=== PATIENT | female | born 1955 | race Caucasian/White ===

== ENCOUNTER → 2017-01-26 | Outpatient (CLI) | payer MEDICAID ==
[2016-12-23 11:33] VITALS: BP 164/72
--- NOTE | 2017-01-26 15:48 | MRI ---
MRI OF THE ABDOMEN WITHOUT IV CONTRAST MRA OF THE ABDOMEN WITHOUT AND WITH CONTRAST Clinical indication: Essential hypertension Procedure: Multiplanar multi sequence MRI of the abdomen were obtained without the administration of intravenous contrast according to standard departmental protocol. Noncontrast imaging of the arteri al structures of the abdomen was performed. 3D reconstructions were performed and evaluated. Comparisons: Renal ultrasound 12/23/2016 Findings: MRI: No significant iron or fat deposition in the liver or spleen. No significant ascites. Liver and spleen are normal in appearance. No focal lesions. Gallbladder not well seen. No ductal di latation. Atrophic pancreas. No pancreatic masses. Adrenal glands are normal. Kidneys demonstrate no rmal cortical medullary differentiation. No hydronephrosis. Visualized bowel is unremarkable. No heavenly picious lymph nodes. MRA: The aorta is normal in course and caliber without aneurysm or stenosis. The renal arteries bila terally show no gross, significant stenosis. The celiac artery is normal. The SMA is normal. Impression: 1. No gross renal artery stenosis. Please note the given the poor spatial resolution of MRI, more ho btle stenosis cannot be completely excluded. Reported By:
== END ==
LOC: RAD 08:19
PROVIDERS: ATTEND Nurse Practitioner Family
DX: I10 Essential (primary) hypertension (principal)
CPT/HCPCS: 74185

== ENCOUNTER → 2017-04-26 | Outpatient (CLI) | payer MEDICAID ==
[2016-12-23 11:33] VITALS: BP 164/72
--- NOTE | 2017-04-26 10:42 | RAD ---
HISTORY: COPD, right chest wall pain. Study: PA and lateral chest. Comparison: Chest x-ray dated December 22, 2016. Findings: The trachea is midline. The cardiac silhouette is unchanged. Right chest Port-A-Cath appears unchan ged. The lungs are clear without focal infiltrate or effusion. The bony thorax appears unchanged. Surgical clips are seen overlying the right axilla and right upper quadrant. IMPRESSION: 1. No acute cardiopulmonary disease. Reported By:
== END ==
LOC: LAB 10:13
PROVIDERS: ATTEND Nurse Practitioner Family
DX: J44.9 Chronic obstructive pulmonary disease, unspecified (principal); R07.89 Other chest pain; R25.2 Cramp and spasm
CPT/HCPCS: 36415; 71020; 83735

== ENCOUNTER → 2017-06-07 | Outpatient (CLI) | payer MEDICAID ==
[2016-12-23 11:33] VITALS: BP 164/72
[2017-06-07 13:11] LABS: BASOPHILS # (AUTO) 0.1 X10^3/uL (0.0-0.1); EOSINOPHILS # (AUTO) 0.1 x10^3/uL (0.0-0.2); EOSINOPHILS % (AUTO) 1.5 % (0.9-2.9); HEMATOCRIT 37.6 % (36.0-47.0); HEMOGLOBIN 12.8 g/dL (12.0-16.0); LYMPHOCYTES # (AUTO) 1.4 X10^3/uL (1.3-2.9); MEAN CORPUSCULAR HEMOGLOBIN 28.8 pg (27.0-34.0); MEAN CORPUSCULAR VOLUME 84.8 fL (80.0-100.0); MEAN PLATELET VOLUME 8.1 fL (7.4-11.0); MONOCYTES # (AUTO) 0.3 x10^3/uL (0.3-0.8); MONOCYTES % (AUTO) 3.7 % (0.0-13.0); NEUTROPHILS # (AUTO) 5.8 x10^3/uL (2.2-4.8); NEUTROPHILS % (AUTO) 75.8 % (42.0-75.0); PLATELET COUNT 348 X10^3/uL (150.0-450.0); RED BLOOD COUNT 4.43 X10^6/uL (3.5-5.4); WHITE BLOOD COUNT 7.7 X10^3/uL (3.6-10.0)
[2017-06-07 13:21] LABS: ALANINE AMINOTRANSFERASE 29 Units/L (12-78); ALBUMIN 3.8 g/dL (3.4-5.0); ALKALINE PHOSPHATASE 143 Units/L (46-116); ASPARTATE AMINO TRANSFERASE 20 Units/L (15-37); BLOOD UREA NITROGEN 16 mg/dL (7-18); CALCIUM 8.9 mg/dL (8.5-10.1); CARBON DIOXIDE 33.5 mmol/L (21-32); CHLORIDE 103 mmol/L (98-107); COR NA(FOR HYPERGLY) 140 mmol/L (136-145); CREATININE 0.78 mg/dL (0.55-1.02); GLUCOSE 117 mg/dL (65-99); SODIUM 140 mmol/L (136-145); TOTAL PROTEIN 7.9 g/dL (6.4-8.2); eGFR BLACK RACES > 60 (>60); eGFR NON BLACK RACES > 60 (>60)
== END ==
LOC: LAB 12:36
PROVIDERS: ATTEND Internal Medicine Hematology & Oncology
DX: C50.511 Malignant neoplasm of lower-outer quadrant of right female breast (principal); E55.9 Vitamin D deficiency, unspecified
CPT/HCPCS: 36415; 80053; 82306; 85025

== ENCOUNTER → 2017-10-16 | Outpatient (CLI) | payer MEDICAID ==
[2016-12-23 11:33] VITALS: BP 164/72
--- NOTE | 2017-10-16 10:47 | RAD ---
Examination: Right hand, three views History: Trigger finger Findings: There is no evidence for fracture, dislocation or erosive arthropathy. The soft tissues are unremarkable. Slight narrowing of DIP joints is noted. Impression: No acute process. Mild DIP joint osteoarthritis. Reported By:
== END ==
LOC: RAD 09:41
PROVIDERS: ATTEND Nurse Practitioner Family
DX: M65.30 Trigger finger, unspecified finger (principal); M19.041 Primary osteoarthritis, right hand
CPT/HCPCS: 73130

== ENCOUNTER 2017-11-10 16:10 | Observation (INO) | payer MEDICAID ==
[2017-11-10 17:36] VITALS: BMI 36.6
[2017-11-10] MEDS ORDERED: APRESOLINE INJ 20 MG VIAL IVP PRN (17:46)
[2017-11-10] MEDS ORDERED: NORCO 10/325 TAB PO PRN (17:49)
--- NOTE | 2017-11-10 17:53 | DR.H&P ---
H&P - History & Physical for Day of: H&P Date: 11/10/17 - Chief Complaint Chief Complaint: marti, body aches, sob, wheezing - Allergies Allergies/Adverse Reactions: Allergies Allergy/AdvReac Type Severity Reaction Status Date / Time MS Iodine [Iodine] Allergy Severe Verified 10/29/16 08:56 MS Metaxalone [From Skelaxin] Allergy Severe Verified 10/29/16 08:56 MS Brompheniramine Allergy Intermediate Verified 10/29/16 08:56 [From Dimetapp] MS Clindamycin [Clindamycin] Allergy Intermediate Verified 10/29/16 08:56 MS Phenylpropanolamine Allergy Intermediate Verified 10/29/16 08:56 [From Dimetapp] MS Ciprofloxacin [From Cipro] Allergy Unknown Verified 10/29/16 08:56 hydromorphone Allergy Verified 11/10/17 17:17 MS Fish Allergy Allergy Verified 10/29/16 08:56 [Fish Allergy] MS Meperidine Allergy Verified 10/29/16 08:56 [From Demerol HCl] MS Morphine [Morphine] Allergy Verified 10/29/16 08:56 MS Penicillin G Allergy Verified 10/29/16 08:56 [Penicillin G] MS Ranitidine [From Zantac] Allergy Verified 10/29/16 08:56 MS Shrimp Flavor Allergy Verified 10/29/16 08:56 [Shrimp Flavor] oxcaprozin Allergy Severe Uncoded 10/29/16 08:56 - History of Present Illness History of Present Illness: 62 WF DIRECT ADMIT FROM DR IBARRA OFFICES WITH HYPERTENSIVE URGENCY AND CO FLU LIKE SYMPTOMS FOR 3 DAYS. PT STATES SHE HAS INCREASED SOB AND WHEEZING. PT BP IN OFFICE 210-112, POST CATAPRES 0.1 PO. PT ALSO ON NORVASC AND LOSARTAN AT HOME. PT MARTI HX OF COPD AND ASTHMA. PLAN TO ADMIT FOR MANAGEMENT OF HTN URGENCY AND EVALUATION OF SOB. - Past Medical History Past Medical History: Angina, Asthma, COPD, Coronary Artery Disease, Dyslipidemia, Hypertension Additional Medical History: BREAST CANCER - Past Surgical History Surgical History: Cholecystectomy, Hysterectomy, Mastectomy - Family History Family Medical History: Diabetes Mellitus, Heart Failure, Hypertension - Social History Does patient currently use any type of tobacco product: No Have you used tobacco products in the last 12 months: No Type of Tobacco Use: None Does any household member use tobacco: Yes Alcohol Use: None Drug Use: None - Review of Systems Constitutional: Fever, Chills, Sweats, Malaise Eyes: No Symptoms Reported ENT: Nose Congestion, Throat Pain Respiratory: Shortness of Breath, SOB with Excertion, Wheezing Cardiovascular: No Symptoms Reported Gastrointestinal: No Symptoms Reported Genitourinary: No Symptoms Reported Musculoskeletal: Shoulder Pain, Back Pain Skin: No Symptoms Reported Neurological: No Symptoms Reported - Physical Exam Vital Signs: Temperature 97.6 F Pulse Rate [Right Brachial] 87 Respiratory Rate 20 Blood Pressure [Left Calf] 155/88 Blood Pressure [Left Arm] 185/82 Blood Pressure 164/72 O2 Sat by Pulse Oximetry 97 Oriented: Normal Eyes: Normal Ear: Normal Nose: Normal Throat: Normal Respiratory: Wheezes Throughout Cardiovascular: Tachycardia. negative: Edema : Normal Auscultation: Bowel Sounds: Normal Palpation: Normal Tenderness: Normal Skin: Normal Musculoskeletal: Right, Shoulder, Back:Lumbar Psychiatric: Anxiety Affect: Anxious Speech Pattern: Clear, Appropriate - Assessment/Plan (1) Hypertensive urgency Status: Acute Plan: ADMIT, ADMISSION LABS. RESP CONSULT, O2, TELEMETRY, EKG ON ADMISSION, CE' S. CXR, BP CONTROL, HYDRALAZINE AND PO CATAPRES, RESUME HOME MEDS. (2) SOB (shortness of breath) Status: Acute (3) Fever Status: Acute Plan: FLU SWAB (4) COPD (chronic obstructive pulmonary disease) with acute bronchitis Status: Chronic (5) GERD (gastroesophageal reflux disease) Status: Chronic (6) Status post right mastectomy Status: Chronic
[2017-11-10] MEDS: CATAPRES TAB 0.1 MG PO SCH ×2 (17:56→22:24)
[2017-11-10 18:04] LABS: ABG BASE EXCESS 5.9 mmol/L (-2.0-2.0); ABG HCO3 29.7 mmol/L (22-26)
[2017-11-10 18:05] LABS: ABG ALLEN TEST POS
[2017-11-10 18:11] LABS: BASOPHILS # (AUTO) 0.1 X10^3/uL (0.0-0.1); BASOPHILS % (AUTO) 1.2 % (0.2-1.0); EOSINOPHILS # (AUTO) 0.2 x10^3/uL (0.0-0.2); HEMATOCRIT 36.6 % (36.0-47.0); HEMOGLOBIN 12.7 g/dL (12.0-16.0); LYMPHOCYTES # (AUTO) 2.1 X10^3/uL (1.3-2.9); LYMPHOCYTES % (AUTO) 26.7 % (21.0-51.0); MEAN CORPUSCULAR HEMOGLOBIN 30.7 pg (27.0-34.0); MEAN CORPUSCULAR HGB CONC 34.8 g/dL (33.0-35.0); MEAN CORPUSCULAR VOLUME 88.1 fL (80.0-100.0); MEAN PLATELET VOLUME 8.5 fL (7.4-11.0); MONOCYTES # (AUTO) 0.5 x10^3/uL (0.3-0.8); MONOCYTES % (AUTO) 6.5 % (0.0-13.0); NEUTROPHILS % (AUTO) 63.6 % (42.0-75.0); PLATELET COUNT 309 X10^3/uL (150.0-450.0); RED BLOOD COUNT 4.15 X10^6/uL (3.5-5.4); RED CELL DISTRIBUTION WIDTH 13.7 % (11.6-16.5); WHITE BLOOD COUNT 7.8 X10^3/uL (3.6-10.0)
--- NOTE | 2017-11-10 18:20 | RAD ---
HISTORY: Shortness of breath and elevated blood pressure. Study: Portable chest. Comparison: Chest x-ray dated April 26, 2017. Findings: The trachea is midline. The cardiac silhouette is unchanged given technique. Interval removal of rig ht chest Port-A-Cath. Surgical clips are again seen overlying the right axilla and right upper quadra nt. No obvious focal consolidation, pleural effusion, or pneumothorax. The bony thorax is unremarka ble. IMPRESSION: No acute cardiopulmonary disease. Reported By:
[2017-11-10] MEDS ORDERED: NS 500 ML IV 500 ML IV ONE (18:23)
[2017-11-10 18:27] LABS: BLOOD UREA NITROGEN 19 mg/dL (7-18); CALCIUM 8.9 mg/dL (8.5-10.1); CARBON DIOXIDE 27.5 mmol/L (21-32); CHLORIDE 104 mmol/L (98-107); CREATININE 0.64 mg/dL (0.55-1.02); SODIUM 141 mmol/L (136-145); TROPONIN I < 0.02 ng/mL (0-1.5); eGFR BLACK RACES > 60 (>60); eGFR NON BLACK RACES > 60 (>60)
[2017-11-10] MEDS: ZITHROMAX INJ 500 MG VIAL 500 MG in NS 250 ML IV 250 ML IV SCH (18:32)
[2017-11-10 18:33] LABS: ALANINE AMINOTRANSFERASE 37 Units/L (12-78); ALBUMIN 3.7 g/dL (3.4-5.0); ALKALINE PHOSPHATASE 108 Units/L (46-116); ASPARTATE AMINO TRANSFERASE 20 Units/L (15-37); CKMB % 2.6 % (<4); CREATINE KINASE 39 Units/L (26-192); CREATINE KINASE MB < 1.0 ng/mL (0-4.0); TOTAL PROTEIN 7.3 g/dL (6.4-8.2)
[2017-11-11] MEDS: CATAPRES TAB 0.1 MG PO SCH ×4 (02:29→18:31)
[2017-11-11 04:48] LABS: ALANINE AMINOTRANSFERASE 35 Units/L (12-78); ALKALINE PHOSPHATASE 97 Units/L (46-116); ASPARTATE AMINO TRANSFERASE 29 Units/L (15-37); BLOOD UREA NITROGEN 21 mg/dL (7-18); CALCIUM 8.5 mg/dL (8.5-10.1); CHLORIDE 105 mmol/L (98-107); COR CA(FOR HYPOALB) 9.3 mg/dL (8.5-10.1); CREATININE 0.66 mg/dL (0.55-1.02); SODIUM 141 mmol/L (136-145); TOTAL PROTEIN 6.2 g/dL (6.4-8.2); eGFR BLACK RACES > 60 (>60); eGFR NON BLACK RACES > 60 (>60)
[2017-11-11 04:50] LABS: BASOPHILS # (AUTO) 0.1 X10^3/uL (0.0-0.1); EOSINOPHILS # (AUTO) 0.1 x10^3/uL (0.0-0.2); EOSINOPHILS % (AUTO) 2.6 % (0.9-2.9); HEMATOCRIT 34.3 % (36.0-47.0); HEMOGLOBIN 11.8 g/dL (12.0-16.0); LYMPHOCYTES # (AUTO) 1.8 X10^3/uL (1.3-2.9); LYMPHOCYTES % (AUTO) 32.5 % (21.0-51.0); MEAN CORPUSCULAR HEMOGLOBIN 30.6 pg (27.0-34.0); MEAN CORPUSCULAR HGB CONC 34.4 g/dL (33.0-35.0); MEAN CORPUSCULAR VOLUME 89.1 fL (80.0-100.0); MONOCYTES # (AUTO) 0.4 x10^3/uL (0.3-0.8); MONOCYTES % (AUTO) 7.6 % (0.0-13.0); NEUTROPHILS % (AUTO) 56.3 % (42.0-75.0); PLATELET COUNT 260 X10^3/uL (150.0-450.0); RED BLOOD COUNT 3.85 X10^6/uL (3.5-5.4); RED CELL DISTRIBUTION WIDTH 13.7 % (11.6-16.5); WHITE BLOOD COUNT 5.4 X10^3/uL (3.6-10.0)
[2017-11-11] MEDS ORDERED: COZAAR PO SCH (09:00)
[2017-11-11] MEDS ORDERED: NORVASC TAB 5 MG PO SCH (09:00)
[2017-11-11] MEDS: ZITHROMAX INJ 500 MG VIAL 500 MG in NS 250 ML IV 250 ML IV SCH (09:26)
[2017-11-11 13:42] VITALS: BP 147/66
== END 2017-11-11 19:50 | disposition home or self-care (01) ==
LOC: UNDOADMOB 16:10 → MED/SURG 16:10
PROVIDERS: ADMIT Internal Medicine; ATTEND Internal Medicine
DX: I16.0 Hypertensive urgency (principal); R06.02 Shortness of breath; R51 Headache; J44.9 Chronic obstructive pulmonary disease, unspecified; J20.8 Acute bronchitis due to other specified organisms; K21.9 Gastro-esophageal reflux disease without esophagitis; Z90.11 Acquired absence of right breast and nipple; R94.4 Abnormal results of kidney function studies
CPT/HCPCS: 36415; 36600; 71010; 80053; 82550; 82553; 82803; 84484; 85025; 87502; 93005; 93010; A4222; G0378; J0456

== ENCOUNTER → 2018-04-01 | Day surgery (SDC) | payer MEDICAID ==
[~2018-04-01] MED LIST: ANCEF 1 GM IV PREMIX* 1 GM/50 ML BAG IV ONE; BACITRACIN VIAL ONE; COZAAR PO ONE; DIPRIVAN VIAL ONE; FENTANYL INJ 100 mcg ONE; NS 1000 ML 1,000 ML ONE; NS IRRIGATION 1000 ML 1,000 ML IR ONE; TOPROL XL PO ONE; VERSED ONE; XYLOCAINE 1 % (PLAIN) ONE; XYLOCAINE 2 % (PLAIN) ONE
--- NOTE | 2018-04-01 10:24 | RAD ---
Examination: Portable AP chest History: Postop port Comparison reference 03/12/2018 Findings: There is a new left subclavian injection port terminating in the SVC. Heart size normal wit h clear lungs and pleural spaces. Impression: Central line placement as described with no complication demonstrated. Reported By:
[2018-04-01 10:44] VITALS: BP 185/82
== END | disposition home or self-care (01) | DRG 301 ==
LOC: SURG1 07:30
PROVIDERS: ATTEND Surgery
PROC: B517ZZA Fluoroscopy of Left Subclavian Vein, Guidance (ICD-10-PCS; principal; 2018-04-01 09:15)
PROC: 05H633Z Insertion of Infusion Device into Left Subclavian Vein, Percutaneous Approach (ICD-10-PCS; principal; 2018-04-01 09:15)
PROC: 0JH63WZ Insertion of Totally Implantable Vascular Access Device into Chest Subcutaneous Tissue and Fascia, Percutaneous Approach (ICD-10-PCS; principal; 2018-04-01 09:15)
DX: I87.2 Venous insufficiency (chronic) (peripheral) (principal); Z85.3 Personal history of malignant neoplasm of breast
CPT/HCPCS: 71045; 76000; A4222; J0690; J2001; J2250; J3010; J3490

== ENCOUNTER → 2018-10-18 15:53 | Observation (INO) ==
--- NOTE | 2018-10-14 13:56 | DR.H&P ---
H&P - History & Physical for Day of: H&P Date: 10/14/18 - Chief Complaint Chief Complaint: marti, elevated blood pressure, lle pain, redness "phlebitis" - History of Present Illness History of Present Illness: 63 WF DIRECT ADMIT FROM DR REYEZ OFFICE WITH CO LLE PAIN, REDNESS, PT STATES IT "PHLEBITIS". PT STATES SHE HAD SEVERE MARTI THIS AM AND BLOOD PRESSURE HAS BEEN RUNNING MED, SHE TOOK HER HOME MEDICATION THIS AM PER REPORT. PT BP IN OFFICE 240/128 AND GIVEN CATAPRES 0.1 BRINGING DOWN TO 200/90. PT STATES SHE WAS SEEN IN ER ON 10/11 HAD US W/O DVT AND WAS CO CP AND SOB AND CARDIAC ENZYMES NORMAL AND D/C HOME. PT HAS PMH OF BREAST CANCER, ASTHMA, COPD, HTN,OA, DINESH. PT ADMITTED FOR TREATMENT OF HYPERTENSIVE URGENCY AND LLE PHLEBITIS. - Past Medical History Past Medical History: Angina, Coronary Artery Disease, Hypertension, Dyslipidemia, COPD, Asthma, Arthritis Additional Medical History: BREAST CANCER - Past Surgical History Surgical History: Cholecystectomy, Hysterectomy, Mastectomy - Family History Family Medical History: Diabetes Mellitus, Heart Failure, Hypertension - Social History Does patient currently use any type of tobacco product: No Have you used tobacco products in the last 12 months: No Type of Tobacco Use: None Does any household member use tobacco: Yes Alcohol Use: None Drug Use: None - Medications Home Medications: brompheniramine Allergy (Verified 10/11/18 22:27) ciprofloxacin Allergy (Verified 10/11/18 22:27) clindamycin Allergy (Verified 10/11/18 22:27) Fish Containing Products Allergy (Verified 10/11/18 22:27) hydromorphone Allergy (Verified 10/11/18 22:27) iodine Allergy (Verified 10/11/18 22:27) meperidine [From Demerol] Allergy (Verified 10/11/18 22:27) metaxalone Allergy (Verified 10/11/18 22:27) morphine Allergy (Verified 10/11/18 22:27) penicillin G Allergy (Verified 10/11/18 22:27) phenylpropanolamine Allergy (Verified 10/11/18 22:27) ranitidine Allergy (Verified 10/11/18 22:27) shrimp Allergy (Verified 10/11/18 22:27) oxcaprozin Allergy (Severe, Uncoded 10/11/18 22:27) CONTINUE taking the following medications hydrochlorothiazide 25 mg PO DAILY 10/14/18 [History] oxycodone-acetaminophen [Percocet] 10 - 325 mg PO Q8H 10/14/18 [History] potassium chloride 10 meq PO DAILY 10/14/18 [History] - Review of Systems Constitutional: Chills, Weakness Eyes: No Symptoms Reported ENT: No Symptoms Reported Respiratory: Shortness of Breath, SOB with Excertion Cardiovascular: No Symptoms Reported Gastrointestinal: Nausea Genitourinary: No Symptoms Reported Musculoskeletal: Back Pain, Leg Pain Skin: Rash (LLE REDNESS) Neurological: No Symptoms Reported - Physical Exam Vital Signs: Temperature 97.7 F Pulse Rate [Left Brachial] 86 Respiratory Rate 20 Blood Pressure [Left Calf] 179/86 Blood Pressure [Left Arm] 230/92 Blood Pressure 164/94 O2 Sat by Pulse Oximetry 96 Oriented: Normal Eyes: Normal Ear: Normal Nose: Normal Throat: Dry Respiratory: RML Diminished, RLL Diminished, LML Diminished, LLL Diminished Cardiovascular: Tachycardia. negative: Edema : Normal Auscultation: Bowel Sounds: Normal Palpation: Normal Tenderness: Normal Skin: Decreased Turgur, Red (MILD LLE REDNESS ), Tender Musculoskeletal: Back:Thoracic, Back:Lumbar, Tender, Instability Psychiatric: Anxiety Affect: Anxious Speech Pattern: Clear, Appropriate - Assessment/Plan (1) Hypertensive urgency Status: Acute Plan: ADMIT, CARDIAC MONITORING, EKG ON ADMISSION. ADMISSION LABS CBC CMP MAG CE. RESP CONSULT FOR HOME ASTHMA NEB TREATMENTS. CXR ON ADMISSION, VERIFY HOME MEDICATION. HYDRALAXINE IV FOR BP CONTROL, IV ATBX FOR PHLEBITIS, BLOOD CULTURES ON ADMISSION (2) Phlebitis Status: Acute (3) Hypertension Qualifiers: Hypertension type: essential hypertension Qualified Code(s): I10 - Essential (primary) hypertension Status: Acute (4) COPD (chronic obstructive pulmonary disease) Qualifiers: COPD type: chronic bronchitis Status: Chronic (5) History of DVT (deep vein thrombosis) Status: Chronic (6) Status post right mastectomy Status: Chronic (7) GERD (gastroesophageal reflux disease) Status: Chronic - Allergies Allergies/Adverse Reactions: Allergies Allergy/AdvReac Type Severity Reaction Status Date / Time brompheniramine Allergy Verified 10/11/18 22:27 ciprofloxacin Allergy Verified 10/11/18 22:27 clindamycin Allergy Verified 10/11/18 22:27 Fish Containing Products Allergy Verified 10/11/18 22:27 hydromorphone Allergy Verified 10/11/18 22:27 iodine Allergy Verified 10/11/18 22:27 meperidine [From Demerol] Allergy Verified 10/11/18 22:27 metaxalone Allergy Verified 10/11/18 22:27 morphine Allergy Verified 10/11/18 22:27 penicillin G Allergy Verified 10/11/18 22:27 phenylpropanolamine Allergy Verified 10/11/18 22:27 ranitidine Allergy Verified 10/11/18 22:27 shrimp Allergy Verified 10/11/18 22:27 oxcaprozin Allergy Severe Uncoded 10/11/18 22:27
[2018-10-14] MEDS: NS 1000 ML 1,000 ML IV SCH (14:14)
[2018-10-14] MEDS: PROTONIX INJ 40 MG VIAL IVP SCH (14:14)
[2018-10-14] MEDS: ROCEPHIN VIAL 1 GRAM IVP SCH (14:14)
[2018-10-14 14:15] LABS: BASOPHILS # (AUTO) 0.1 X10^3/uL (0.0-0.1); EOSINOPHILS % (AUTO) 0.6 % (0.9-2.9); HEMATOCRIT 38.5 % (36.0-47.0); HEMOGLOBIN 13.1 g/dL (12.0-16.0); LYMPHOCYTES # (AUTO) 1.3 X10^3/uL (1.3-2.9); MEAN CORPUSCULAR HEMOGLOBIN 30.6 pg (27.0-34.0); MEAN PLATELET VOLUME 7.6 fL (7.4-11.0); MONOCYTES # (AUTO) 0.3 x10^3/uL (0.3-0.8); MONOCYTES % (AUTO) 5.4 % (0.0-13.0); PLATELET COUNT 367 X10^3/uL (150.0-450.0); RED BLOOD COUNT 4.27 X10^6/uL (3.5-5.4); RED CELL DISTRIBUTION WIDTH 14.8 % (11.6-16.5); WHITE BLOOD COUNT 5.7 X10^3/uL (3.6-10.0)
--- NOTE | 2018-10-14 14:26 | RAD ---
Reported By: ORY: Shortness of breath Study: AP portable chest Comparison: AP chest 10/11/2018 Technique: AP portable upright chest Findings: Left subclavian port is seen entering on the left tip at the junction the left subclavian to the superior vena cava in good position. Patient has undergone prior anterior fusion surgery in the lower C-spine with retained anterior fusion plate. The heart size, configuration and airway are normal . Surgical clips are seen in the right axilla. There is no hilar or mediastinal adenopathy. The lungs are clear without infiltrates. There is no interval change from the prior chest film 10/11/2018. IMPRESSION: 1. No acute cardiopulmonary abnormalities. 2. Prior axillary C-spine surgery with an indwelling left subclavian port in place
[2018-10-14 14:28] LABS: ALANINE AMINOTRANSFERASE 58 Units/L (12-78); ALBUMIN 3.9 g/dL (3.4-5.0); ALKALINE PHOSPHATASE 122 Units/L (46-116); ASPARTATE AMINO TRANSFERASE 28 Units/L (15-37); BLOOD UREA NITROGEN 9 mg/dL (7-18); CALCIUM 8.9 mg/dL (8.5-10.1); CARBON DIOXIDE 28.2 mmol/L (21-32); CHLORIDE 104 mmol/L (98-107); CREATININE 0.61 mg/dL (0.55-1.02); MAGNESIUM 1.8 mg/dL (1.7-2.9); SODIUM 143 mmol/L (136-145); TOTAL PROTEIN 7.7 g/dL (6.4-8.2); eGFR NON BLACK RACES > 60 (>60)
[2018-10-14] MEDS: PERCOCET TAB 5/325 MG PO PRN ×2 (14:35→22:44)
[2018-10-14] MEDS: COLACE CAP 100 MG PO SCH (21:00)
[2018-10-15] MEDS: PHENERGAN INJ 25 MG IV PRN ×2 (04:30→10:25)
[2018-10-15] MEDS: PERCOCET TAB 5/325 MG PO PRN ×3 (07:00→22:44)
[2018-10-15 07:16] LABS: ALANINE AMINOTRANSFERASE 44 Units/L (12-78); ALKALINE PHOSPHATASE 96 Units/L (46-116); ASPARTATE AMINO TRANSFERASE 21 Units/L (15-37); BLOOD UREA NITROGEN 14 mg/dL (7-18); CALCIUM 8.3 mg/dL (8.5-10.1); CARBON DIOXIDE 27.8 mmol/L (21-32); CHLORIDE 107 mmol/L (98-107); COR CA(FOR HYPOALB) 9.1 mg/dL (8.5-10.1); CREATININE 0.71 mg/dL (0.55-1.02); SODIUM 143 mmol/L (136-145); TOTAL PROTEIN 6.3 g/dL (6.4-8.2); eGFR NON BLACK RACES > 60 (>60)
[2018-10-15 07:23] LABS: EOSINOPHILS # (AUTO) 0.1 x10^3/uL (0.0-0.2); EOSINOPHILS % (AUTO) 1.8 % (0.9-2.9); HEMATOCRIT 34.1 % (36.0-47.0); HEMOGLOBIN 11.4 g/dL (12.0-16.0); LYMPHOCYTES # (AUTO) 1.6 X10^3/uL (1.3-2.9); LYMPHOCYTES % (AUTO) 32.7 % (21.0-51.0); MEAN CORPUSCULAR HEMOGLOBIN 30.3 pg (27.0-34.0); MEAN CORPUSCULAR HGB CONC 33.6 g/dL (33.0-35.0); MEAN CORPUSCULAR VOLUME 90.4 fL (80.0-100.0); MONOCYTES # (AUTO) 0.4 x10^3/uL (0.3-0.8); MONOCYTES % (AUTO) 8.1 % (0.0-13.0); NEUTROPHILS # (AUTO) 2.8 x10^3/uL (2.2-4.8); NEUTROPHILS % (AUTO) 56.4 % (42.0-75.0); PLATELET COUNT 328 X10^3/uL (150.0-450.0); RED BLOOD COUNT 3.77 X10^6/uL (3.5-5.4); RED CELL DISTRIBUTION WIDTH 14.9 % (11.6-16.5)
[2018-10-15] MEDS: PROTONIX INJ 40 MG VIAL IVP SCH (08:00)
[2018-10-15] MEDS: ROCEPHIN VIAL 1 GRAM IVP SCH (08:00)
[2018-10-15 08:21] LABS: PLATELET MORPHOLOGY COMMENT NORMAL (NORMAL)
[2018-10-15 10:56] VITALS: BMI 38.6
[2018-10-15 12:29] LABS: CREATINE KINASE 56 Units/L (26-192); CREATINE KINASE MB 1.1 ng/mL (0-4.0); TROPONIN I < 0.02 ng/mL (0-1.5)
[2018-10-15] MEDS: NS 1000 ML 1,000 ML IV SCH (14:23)
[2018-10-15] MEDS: CARDIZEM CD 360 MG PO SCH (17:06)
[2018-10-15] MEDS: COZAAR PO SCH (17:06)
[2018-10-15] MEDS: LOVENOX INJ 40 MG SYR SC SCH (17:06)
[2018-10-15 19:05] LABS: TROPONIN I < 0.02 ng/mL (0-1.5)
[2018-10-15 20:43] LABS: CREATINE KINASE 53 Units/L (26-192); CREATINE KINASE MB < 1.0 ng/mL (0-4.0)
[2018-10-15 20:49] LABS: CKMB % 1.9 % (<4)
[2018-10-15] MEDS: COLACE CAP 100 MG PO SCH (21:12)
[2018-10-15] MEDS: CATAPRES TAB 0.1 MG PO SCH (21:12)
[2018-10-15] MEDS: MAGNESIUM SULFATE 1 GRAM/100 mL PREMIX 1 GM/100 ML BAG IV PRN ×2 (21:30→22:40)
[2018-10-15 23:50] LABS: CKMB % 1.9 % (<4); CREATINE KINASE 52 Units/L (26-192); CREATINE KINASE MB < 1.0 ng/mL (0-4.0); TROPONIN I < 0.02 ng/mL (0-1.5)
[2018-10-16 07:03] LABS: BASOPHILS # (AUTO) 0.1 X10^3/uL (0.0-0.1); BASOPHILS % (AUTO) 1.2 % (0.2-1.0); EOSINOPHILS # (AUTO) 0.1 x10^3/uL (0.0-0.2); EOSINOPHILS % (AUTO) 2.5 % (0.9-2.9); HEMATOCRIT 32.8 % (36.0-47.0); HEMOGLOBIN 10.9 g/dL (12.0-16.0); LYMPHOCYTES # (AUTO) 1.6 X10^3/uL (1.3-2.9); LYMPHOCYTES % (AUTO) 32.7 % (21.0-51.0); MEAN CORPUSCULAR HEMOGLOBIN 30.4 pg (27.0-34.0); MEAN CORPUSCULAR HGB CONC 33.3 g/dL (33.0-35.0); MEAN CORPUSCULAR VOLUME 91.4 fL (80.0-100.0); MEAN PLATELET VOLUME 8.7 fL (7.4-11.0); MONOCYTES # (AUTO) 0.4 x10^3/uL (0.3-0.8); MONOCYTES % (AUTO) 8.2 % (0.0-13.0); NEUTROPHILS # (AUTO) 2.6 x10^3/uL (2.2-4.8); NEUTROPHILS % (AUTO) 55.4 % (42.0-75.0); PLATELET COUNT 277 X10^3/uL (150.0-450.0); RED BLOOD COUNT 3.59 X10^6/uL (3.5-5.4); RED CELL DISTRIBUTION WIDTH 15.4 % (11.6-16.5); WHITE BLOOD COUNT 4.8 X10^3/uL (3.6-10.0)
[2018-10-16 07:30] LABS: ALANINE AMINOTRANSFERASE 43 Units/L (12-78); ALBUMIN 2.9 g/dL (3.4-5.0); ALKALINE PHOSPHATASE 88 Units/L (46-116); ASPARTATE AMINO TRANSFERASE 31 Units/L (15-37); BLOOD UREA NITROGEN 18 mg/dL (7-18); CALCIUM 8.2 mg/dL (8.5-10.1); CARBON DIOXIDE 21.8 mmol/L (21-32); CHLORIDE 106 mmol/L (98-107); COR CA(FOR HYPOALB) 9.1 mg/dL (8.5-10.1); COR NA(FOR HYPERGLY) 142 mmol/L (136-145); CREATININE 0.71 mg/dL (0.55-1.02); SODIUM 142 mmol/L (136-145); eGFR NON BLACK RACES > 60 (>60)
[2018-10-16] MEDS: PERCOCET TAB 5/325 MG PO PRN ×2 (07:53→17:10)
[2018-10-16] MEDS: ROCEPHIN VIAL 1 GRAM IVP SCH (08:04)
[2018-10-16] MEDS: PROTONIX INJ 40 MG VIAL IVP SCH (08:04)
[2018-10-16] MEDS: LOVENOX INJ 40 MG SYR SC SCH (08:10)
[2018-10-16] MEDS: PATIENT'S HOME MEDICATION PO SCH (09:21)
--- NOTE | 2018-10-16 14:27 | RAD ---
Examination: Abdomen with PA chest, three views History: Pain nausea and vomiting Findings: PA chest demonstrates no acute findings. A left subclavian injection port terminates in the SVC. There is evidence for right mastectomy. Supine and upright views of abdomen indicate nonobstructing gas pattern without evidence for perforation, ascites or pathologic calcification. Surgical clips from cholecystectomy. Impression: Postsurgical findings in chest and abdomen. No acute findings. Reported By:
[2018-10-16] MEDS: CATAPRES TAB 0.1 MG PO SCH ×2 (14:45→21:58)
[2018-10-16] MEDS: NS 1000 ML 1,000 ML IV SCH (14:45)
[2018-10-16] MEDS: CARDIZEM CD 360 MG PO SCH (15:33)
[2018-10-16] MEDS: COZAAR PO SCH (15:33)
[2018-10-16] MEDS: COLACE CAP 100 MG PO SCH (21:58)
[2018-10-17] MEDS: PERCOCET TAB 5/325 MG PO PRN ×2 (04:51→16:04)
[2018-10-17 05:29] LABS: BASOPHILS % (AUTO) 0.1 % (0.2-1.0); EOSINOPHILS # (AUTO) 0.1 x10^3/uL (0.0-0.2); EOSINOPHILS % (AUTO) 2.8 % (0.9-2.9); HEMATOCRIT 31.3 % (36.0-47.0); HEMOGLOBIN 10.7 g/dL (12.0-16.0); LYMPHOCYTES # (AUTO) 1.2 X10^3/uL (1.3-2.9); LYMPHOCYTES % (AUTO) 32.7 % (21.0-51.0); MEAN CORPUSCULAR HEMOGLOBIN 30.5 pg (27.0-34.0); MEAN CORPUSCULAR VOLUME 89.8 fL (80.0-100.0); MEAN PLATELET VOLUME 9.1 fL (7.4-11.0); MONOCYTES # (AUTO) 0.3 x10^3/uL (0.3-0.8); MONOCYTES % (AUTO) 8.2 % (0.0-13.0); NEUTROPHILS # (AUTO) 2.1 x10^3/uL (2.2-4.8); NEUTROPHILS % (AUTO) 56.2 % (42.0-75.0); PLATELET COUNT 248 X10^3/uL (150.0-450.0); RED BLOOD COUNT 3.49 X10^6/uL (3.5-5.4); RED CELL DISTRIBUTION WIDTH 15.2 % (11.6-16.5)
[2018-10-17 05:33] LABS: ALANINE AMINOTRANSFERASE 142 Units/L (12-78); ALBUMIN 2.7 g/dL (3.4-5.0); ALKALINE PHOSPHATASE 105 Units/L (46-116); ASPARTATE AMINO TRANSFERASE 165 Units/L (15-37); BLOOD UREA NITROGEN 15 mg/dL (7-18); CALCIUM 8.1 mg/dL (8.5-10.1); CARBON DIOXIDE 24.8 mmol/L (21-32); CHLORIDE 107 mmol/L (98-107); COR CA(FOR HYPOALB) 9.1 mg/dL (8.5-10.1); COR NA(FOR HYPERGLY) 140 mmol/L (136-145); CREATININE 0.58 mg/dL (0.55-1.02); SODIUM 140 mmol/L (136-145); TOTAL PROTEIN 5.9 g/dL (6.4-8.2); eGFR NON BLACK RACES > 60 (>60)
[2018-10-17 08:08] LABS: AMYLASE 72 Units/L (25-115); LIPASE 120 Units/L (73-393)
[2018-10-17] MEDS: COZAAR PO SCH (08:25)
[2018-10-17] MEDS: LOVENOX INJ 40 MG SYR SC SCH (08:26)
[2018-10-17] MEDS: PROTONIX INJ 40 MG VIAL IVP SCH (08:27)
[2018-10-17] MEDS: PATIENT'S HOME MEDICATION PO SCH (08:27)
[2018-10-17] MEDS: ROCEPHIN VIAL 1 GRAM IVP SCH (08:27)
[2018-10-17 11:20] LABS: CKMB % 1.5 % (<4); CREATINE KINASE 68 Units/L (26-192); CREATINE KINASE MB < 1.0 ng/mL (0-4.0); TROPONIN I < 0.02 ng/mL (0-1.5)
--- NOTE | 2018-10-17 13:12 | PCM.PROG ---
Progress Note - Progress Note for Day of Date of Exam: 10/15/18 - Subjective Subjective: 63 WF ADMITTED ON 10/14 WITH CO HYPERTENSIVE URGENCY AND PHLEBITIS TO LLE. PT TREATED WITH IV HYDRALAZINE FOR BLOOD PRESSURE CONTROL, BP CONTINUED 170'S SYSTOLIC. PT LLE W/O REDNESS OR INCREASED WARMTH. PT HAD CHEST PAIN DURING THE NIGHT FOLLOWED BY VOMITING. PT CO "CHEST PAIN" HOLDING HER EPIGASTRIC AREA. PT STATES SHE HAS HAD N/V/D PRIOR TO ADMISSION. CE COLLECTED DURING THE NIGHT STABLE. WILL TREAT GI SYMPTOMS, CLEAR LIQUID DIET AND PPI THERAPY. PT HAS EXP WHEEZES WITH HX ASTHMA, WILL CONTINUE RESP THERAPY PRN. - Past Medical Family Social History Past Med/Fam/Surg Hx: No changes since H&P Allergies: Allergies brompheniramine Allergy (Verified 10/11/18 22:27) ciprofloxacin Allergy (Verified 10/11/18 22:27) clindamycin Allergy (Verified 10/11/18 22:27) Fish Containing Products Allergy (Verified 10/11/18 22:27) hydromorphone Allergy (Verified 10/11/18 22:27) iodine Allergy (Verified 10/11/18 22:27) meperidine [From Demerol] Allergy (Verified 10/11/18 22:27) metaxalone Allergy (Verified 10/11/18 22:27) morphine Allergy (Verified 10/11/18 22:27) penicillin G Allergy (Verified 10/11/18 22:27) phenylpropanolamine Allergy (Verified 10/11/18 22:27) ranitidine Allergy (Verified 10/11/18 22:27) shrimp Allergy (Verified 10/11/18 22:27) oxcaprozin Allergy (Severe, Uncoded 10/11/18 22:27) - Review of Systems ROS: No change since H&P - Vital Signs and I&O's Vital Signs: Temperature 98.1 F Pulse Rate [Left Brachial] 83 Pulse Rate 71 Respiratory Rate 18 Blood Pressure [Left Calf] 179/86 Blood Pressure [Left Arm] 179/81 Blood Pressure 164/94 O2 Sat by Pulse Oximetry 97 Intake and Output: Intake & Output 10/15/18 10/16/18 10/17/18 10/18/18 11:59 11:59 11:59 11:59 Intake Total 899 / 899 1880 / 1880 2100 / 2099 Balance 899 / 899 1879 - Physical Exam Oriented: Normal Eyes: Normal Ear: Normal Nose: Normal Throat: Dry Cardiovascular: Tachycardia. negative: Edema : Normal Auscultation: Bowel Sounds: Normal Tenderness: Epigastric Skin: Decreased Turgur, Red (MILD LLE REDNESS ), Tender Musculoskeletal: Back:Thoracic, Back:Lumbar, Tender, Instability Psychiatric: Anxiety Affect: Anxious Speech Pattern: Clear, Appropriate - Laboratory and Diagnostics Result Diagrams: 10/17/18 04:43 10/17/18 04:43 Labs: 10/14/18 14:40 Blood Blood Culture - Preliminary 10/14/18 14:06 Blood Blood Culture - Preliminary Laboratory WBC 4.0 X10^3/uL (3.6-10.0) 10/17/18 04:43 RBC 3.49 X10^6/uL (3.5-5.4) L 10/17/18 04:43 Hgb 10.7 g/dL (12.0-16.0) L 10/17/18 04:43 Hct 31.3 % (36.0-47.0) L 10/17/18 04:43 MCV 89.8 fL (80.0-100.0) 10/17/18 04:43 MCH 30.5 pg (27.0-34.0) 10/17/18 04:43 MCHC 34.0 g/dL (33.0-35.0) 10/17/18 04:43 RDW 15.2 % (11.6-16.5) 10/17/18 04:43 Plt Count 248 X10^3/uL (150.0-450.0) 10/17/18 04:43 Plt Count Comment Adequate (ADEQUATE) 10/15/18 06:55 MPV 9.1 fL (7.4-11.0) 10/17/18 04:43 Neut % (Auto) 56.2 % (42.0-75.0) 10/17/18 04:43 Lymph % (Auto) 32.7 % (21.0-51.0) 10/17/18 04:43 Dare % (Auto) 8.2 % (0.0-13.0) 10/17/18 04:43 Eos % (Auto) 2.8 % (0.9-2.9) 10/17/18 04:43 Baso % (Auto) 0.1 % (0.2-1.0) L 10/17/18 04:43 Neut # (Auto) 2.1 x10^3/uL (2.2-4.8) L 10/17/18 04:43 Lymph # (Auto) 1.2 X10^3/uL (1.3-2.9) L 10/17/18 04:43 Dare # (Auto) 0.3 x10^3/uL (0.3-0.8) 10/17/18 04:43 Eos # (Auto) 0.1 x10^3/uL (0.0-0.2) 10/17/18 04:43 Baso # (Auto) 0.0 X10^3/uL (0.0-0.1) 10/17/18 04:43 Absolute Nucleated RBC 0.0 /100WBC 10/17/18 04:43 Plt Morphology Comment Normal (NORMAL) 10/15/18 06:55 RBC Morphology Normal (NORMAL) 10/15/18 06:55 Sodium 140 mmol/L (136-145) 10/17/18 04:43 Corrected Sodium 140 mmol/L (136-145) 10/17/18 04:43 Potassium 4.4 mmol/L (3.5-5.1) 10/17/18 04:43 Chloride 107 mmol/L (98-107) 10/17/18 04:43 Carbon Dioxide 24.8 mmol/L (21-32) 10/17/18 04:43 BUN 15 mg/dL (7-18) 10/17/18 04:43 Creatinine 0.58 mg/dL (0.55-1.02) 10/17/18 04:43 Est GFR (MDRD) Af Amer > 60 (>60) 10/17/18 04:43 Est GFR (MDRD) Non-Af > 60 (>60) 10/17/18 04:43 Glucose 112 mg/dL (65-99) H 10/17/18 04:43 POC Glucose (mg/dL) 104 mg/dL (65-99) H 10/14/18 20:32 Calcium 8.1 mg/dL (8.5-10.1) L 10/17/18 04:43 Corrected Calcium 9.1 mg/dL (8.5-10.1) 10/17/18 04:43 Magnesium 2.6 mg/dL (1.7-2.9) 10/16/18 05:00 Total Bilirubin 0.40 mg/dL (0.2-1.0) 10/17/18 04:43 AST 165 Units/L (15-37) H 10/17/18 04:43 ALT 142 Units/L (12-78) H 10/17/18 04:43 Alkaline Phosphatase 105 Units/L (46-116) 10/17/18 04:43 Creatine Kinase 68 Units/L (26-192) 10/17/18 10:44 CK-MB (CK-2) < 1.0 ng/mL (0-4.0) 10/17/18 10:44 CK/CKMB % Calc 1.5 % (<4) 10/17/18 10:44 Troponin I < 0.02 ng/mL (0-1.5) 10/17/18 10:44 Total Protein 5.9 g/dL (6.4-8.2) L 10/17/18 04:43 Albumin 2.7 g/dL (3.4-5.0) L 10/17/18 04:43 Globulin 3.2 g/dL (2.5-4.5) 10/17/18 04:43 Albumin/Globulin Ratio 0.8 Ratio (1.1-2.1) L 10/17/18 04:43 Amylase 72 Units/L (25-115) 10/17/18 05:18 Lipase 120 Units/L (73-393) 10/17/18 05:18 - Plan (1) Hypertensive urgency Status: Acute Plan: CARDIAC MONITORING, EKG ON ADMISSION. AM LABS, CONTINUE RESP THERAPY. PPI, NAUSEA CONTROL, CLEAR LIQUID DIET (2) Hypertension Status: Acute Qualifiers: Hypertension type: essential hypertension Qualified Code(s): I10 - Es sential (primary) hypertension (3) COPD (chronic obstructive pulmonary disease) Status: Chronic Qualifiers: COPD type: chronic bronchitis (4) History of DVT (deep vein thrombosis) Status: Chronic (5) Status post right mastectomy Status: Chronic (6) GERD (gastroesophageal reflux disease) Status: Chronic (7) Epigastric pain Status: Acute Plan: PPI, NAUSEA CONTROL. CLEAR LIQUIDS, CARDIAC MONITORING
--- NOTE | 2018-10-17 13:18 | PCM.PROG ---
Progress Note - Progress Note for Day of Date of Exam: 10/16/18 - Subjective Subjective: 63 WF ADMITTED ON 10/14 WITH CO HYPERTENSIVE URGENCY AND PHLEBITIS TO LLE. PT TREATED WITH IV HYDRALAZINE FOR BLOOD PRESSURE CONTROL, BP 108/52 THIS AM. PT LLE W/O REDNESS OR INCREASED WARMTH. PT CONTINUE WITH CO EPIGASTRIC PAIN, "DONT FEEL RIGHT" CURRENTLY ON CLEAR LIQUID DIET AND PPI THERAPY. ORDERED AMYLASE AND LIPASE, ABD SERIES. PT HAS EXP WHEEZES WITH HX ASTHMA, WILL CONTINUE RESP THERAPY PRN. - Past Medical Family Social History Past Med/Fam/Surg Hx: No changes since H&P Allergies: Allergies brompheniramine Allergy (Verified 10/11/18 22:27) ciprofloxacin Allergy (Verified 10/11/18 22:27) clindamycin Allergy (Verified 10/11/18 22:27) Fish Containing Products Allergy (Verified 10/11/18 22:27) hydromorphone Allergy (Verified 10/11/18 22:27) iodine Allergy (Verified 10/11/18 22:27) meperidine [From Demerol] Allergy (Verified 10/11/18 22:27) metaxalone Allergy (Verified 10/11/18 22:27) morphine Allergy (Verified 10/11/18 22:27) penicillin G Allergy (Verified 10/11/18 22:27) phenylpropanolamine Allergy (Verified 10/11/18 22:27) ranitidine Allergy (Verified 10/11/18 22:27) shrimp Allergy (Verified 10/11/18 22:27) oxcaprozin Allergy (Severe, Uncoded 10/11/18 22:27) - Review of Systems ROS: No change since H&P - Vital Signs and I&O's Vital Signs: Temperature 98.1 F Pulse Rate [Left Brachial] 83 Pulse Rate 71 Respiratory Rate 18 Blood Pressure [Left Calf] 179/86 Blood Pressure [Left Arm] 179/81 Blood Pressure 164/94 O2 Sat by Pulse Oximetry 97 Intake and Output: Intake & Output 10/15/18 10/16/18 10/17/18 10/18/18 11:59 11:59 11:59 11:59 Intake Total 899 / 899 1879 / 1879 Balance 899 / 899 1879 / 1879 - Physical Exam Oriented: Normal Eyes: Normal Ear: Normal Nose: Normal Throat: Dry Cardiovascular: Tachycardia. negative: Edema : Normal Auscultation: Bowel Sounds: Normal Tenderness: Epigastric Skin: Decreased Turgur, Red (MILD LLE REDNESS ), Tender Musculoskeletal: Back:Thoracic, Back:Lumbar, Tender, Instability Psychiatric: Anxiety Affect: Anxious Speech Pattern: Clear, Appropriate - Laboratory and Diagnostics Result Diagrams: 10/17/18 04:43 10/17/18 04:43 Labs: 10/14/18 14:40 Blood Blood Culture - Preliminary 10/14/18 14:06 Blood Blood Culture - Preliminary Laboratory WBC 4.0 X10^3/uL (3.6-10.0) 10/17/18 04:43 RBC 3.49 X10^6/uL (3.5-5.4) L 10/17/18 04:43 Hgb 10.7 g/dL (12.0-16.0) L 10/17/18 04:43 Hct 31.3 % (36.0-47.0) L 10/17/18 04:43 MCV 89.8 fL (80.0-100.0) 10/17/18 04:43 MCH 30.5 pg (27.0-34.0) 10/17/18 04:43 MCHC 34.0 g/dL (33.0-35.0) 10/17/18 04:43 RDW 15.2 % (11.6-16.5) 10/17/18 04:43 Plt Count 248 X10^3/uL (150.0-450.0) 10/17/18 04:43 Plt Count Comment Adequate (ADEQUATE) 10/15/18 06:55 MPV 9.1 fL (7.4-11.0) 10/17/18 04:43 Neut % (Auto) 56.2 % (42.0-75.0) 10/17/18 04:43 Lymph % (Auto) 32.7 % (21.0-51.0) 10/17/18 04:43 Wallace % (Auto) 8.2 % (0.0-13.0) 10/17/18 04:43 Eos % (Auto) 2.8 % (0.9-2.9) 10/17/18 04:43 Baso % (Auto) 0.1 % (0.2-1.0) L 10/17/18 04:43 Neut # (Auto) 2.1 x10^3/uL (2.2-4.8) L 10/17/18 04:43 Lymph # (Auto) 1.2 X10^3/uL (1.3-2.9) L 10/17/18 04:43 Wallace # (Auto) 0.3 x10^3/uL (0.3-0.8) 10/17/18 04:43 Eos # (Auto) 0.1 x10^3/uL (0.0-0.2) 10/17/18 04:43 Baso # (Auto) 0.0 X10^3/uL (0.0-0.1) 10/17/18 04:43 Absolute Nucleated RBC 0.0 /100WBC 10/17/18 04:43 Plt Morphology Comment Normal (NORMAL) 10/15/18 06:55 RBC Morphology Normal (NORMAL) 10/15/18 06:55 Sodium 140 mmol/L (136-145) 10/17/18 04:43 Corrected Sodium 140 mmol/L (136-145) 10/17/18 04:43 Potassium 4.4 mmol/L (3.5-5.1) 10/17/18 04:43 Chloride 107 mmol/L (98-107) 10/17/18 04:43 Carbon Dioxide 24.8 mmol/L (21-32) 10/17/18 04:43 BUN 15 mg/dL (7-18) 10/17/18 04:43 Creatinine 0.58 mg/dL (0.55-1.02) 10/17/18 04:43 Est GFR (MDRD) Af Amer > 60 (>60) 10/17/18 04:43 Est GFR (MDRD) Non-Af > 60 (>60) 10/17/18 04:43 Glucose 112 mg/dL (65-99) H 10/17/18 04:43 POC Glucose (mg/dL) 104 mg/dL (65-99) H 10/14/18 20:32 Calcium 8.1 mg/dL (8.5-10.1) L 10/17/18 04:43 Corrected Calcium 9.1 mg/dL (8.5-10.1) 10/17/18 04:43 Magnesium 2.6 mg/dL (1.7-2.9) 10/16/18 05:00 Total Bilirubin 0.40 mg/dL (0.2-1.0) 10/17/18 04:43 AST 165 Units/L (15-37) H 10/17/18 04:43 ALT 142 Units/L (12-78) H 10/17/18 04:43 Alkaline Phosphatase 105 Units/L (46-116) 10/17/18 04:43 Creatine Kinase 68 Units/L (26-192) 10/17/18 10:44 CK-MB (CK-2) < 1.0 ng/mL (0-4.0) 10/17/18 10:44 CK/CKMB % Calc 1.5 % (<4) 10/17/18 10:44 Troponin I < 0.02 ng/mL (0-1.5) 10/17/18 10:44 Total Protein 5.9 g/dL (6.4-8.2) L 10/17/18 04:43 Albumin 2.7 g/dL (3.4-5.0) L 10/17/18 04:43 Globulin 3.2 g/dL (2.5-4.5) 10/17/18 04:43 Albumin/Globulin Ratio 0.8 Ratio (1.1-2.1) L 10/17/18 04:43 Amylase 72 Units/L (25-115) 10/17/18 05:18 Lipase 120 Units/L (73-393) 10/17/18 05:18 - Plan (1) Hypertensive urgency Status: Acute Plan: CARDIAC MONITORING, EKG ON ADMISSION. AM LABS, CONTINUE RESP THERAPY. PPI, NAUSEA CONTROL, CLEAR LIQUID DIET (2) Hypertension Status: Acute Qualifiers: Hypertension type: essential hypertension Qualified Code(s): I10 - Essential (primary) hypertension (3) COPD (chronic obstructive pulmonary disease) Status: Chronic Qualifiers: COPD type: chronic bronchitis (4) History of DVT (deep vein thrombosis) Status: Chronic (5) Status post right mastectomy Status: Chronic (6) GERD (gastroesophageal reflux disease) Status: Chronic (7) Epigastric pain Status: Acute Plan: PPI, NAUSEA CONTROL. CLEAR LIQUIDS, CARDIAC MONITORING. ABD SERIES, AMYLASE AND LIPASE
--- NOTE | 2018-10-17 13:22 | PCM.PROG ---
Progress Note - Progress Note for Day of Date of Exam: 10/17/18 - Subjective Subjective: 63 WF ADMITTED ON 10/14 WITH CO HYPERTENSIVE URGENCY AND PHLEBITIS TO LLE AND GI SYMPTOMS N/V/D WITH "CHEST PAIN"PT TREATED WITH IV HYDRALAZINE FOR BLOOD PRESSURE CONTROL AND HOME BP MEDICATION RESUMED BP RUNNING LOWER THIS AM. PT LLE W/O REDNESS OR INCREASED WARMTH. PT CONTINUE WITH CO EPIGASTRIC PAIN. D/C ROCEPHIN IV, STOOL STUDIES, REPEAT CE STABLE, AMYLASE AND LIPASE NORMAL, NPO, CT ABD PELVIS TODAY. PT HAS EXP WHEEZES WITH HX ASTHMA, WILL CONTINUE RESP THERAPY PRN. - Past Medical Family Social History Past Med/Fam/Surg Hx: No changes since H&P Allergies: Allergies brompheniramine Allergy (Verified 10/11/18 22:27) ciprofloxacin Allergy (Verified 10/11/18 22:27) clindamycin Allergy (Verified 10/11/18 22:27) Fish Containing Products Allergy (Verified 10/11/18 22:27) hydromorphone Allergy (Verified 10/11/18 22:27) iodine Allergy (Verified 10/11/18 22:27) meperidine [From Demerol] Allergy (Verified 10/11/18 22:27) metaxalone Allergy (Verified 10/11/18 22:27) morphine Allergy (Verified 10/11/18 22:27) penicillin G Allergy (Verified 10/11/18 22:27) phenylpropanolamine Allergy (Verified 10/11/18 22:27) ranitidine Allergy (Verified 10/11/18 22:27) shrimp Allergy (Verified 10/11/18 22:27) oxcaprozin Allergy (Severe, Uncoded 10/11/18 22:27) - Review of Systems ROS: No change since H&P - Vital Signs and I&O's Vital Signs: Temperature 98.1 F Pulse Rate [Left Brachial] 83 Pulse Rate 71 Respiratory Rate 18 Blood Pressure [Left Calf] 179/86 Blood Pressure [Left Arm] 179/81 Blood Pressure 164/94 O2 Sat by Pulse Oximetry 97 Intake and Output: Intake & Output 10/15/18 10/16/18 10/17/18 10/18/18 11:59 11:59 11:59 11:59 Intake Total 899 / 899 1880 / 1880 2099 / 2099 Balance 899 / 899 1879 - Physical Exam Oriented: Normal Eyes: Normal Ear: Normal Nose: Normal Throat: Dry Respiratory: Diminished Cardiovascular: Tachycardia. negative: Edema : Normal Auscultation: Bowel Sounds: Normal Tenderness: RUQ, LUQ, Epigastric Skin: Decreased [place], Red (MILD LLE REDNESS ), Tender Musculoskeletal: Back:Thoracic, Back:Lumbar, Tender, Instability Psychiatric: Anxiety Affect: Anxious Speech Pattern: Clear, Appropriate - Laboratory and Diagnostics Result Diagrams: 10/17/18 04:43 10/17/18 04:43 Labs: 10/14/18 14:40 Blood Blood Culture - Preliminary 10/14/18 14:06 Blood Blood Culture - Preliminary Laboratory WBC 4.0 X10^3/uL (3.6-10.0) 10/17/18 04:43 RBC 3.49 X10^6/uL (3.5-5.4) L 10/17/18 04:43 Hgb 10.7 g/dL (12.0-16.0) L 10/17/18 04:43 Hct 31.3 % (36.0-47.0) L 10/17/18 04:43 MCV 89.8 fL (80.0-100.0) 10/17/18 04:43 MCH 30.5 pg (27.0-34.0) 10/17/18 04:43 MCHC 34.0 g/dL (33.0-35.0) 10/17/18 04:43 RDW 15.2 % (11.6-16.5) 10/17/18 04:43 Plt Count 248 X10^3/uL (150.0-450.0) 10/17/18 04:43 Plt Count Comment Adequate (ADEQUATE) 10/15/18 06:55 MPV 9.1 fL (7.4-11.0) 10/17/18 04:43 Neut % (Auto) 56.2 % (42.0-75.0) 10/17/18 04:43 Lymph % (Auto) 32.7 % (21.0-51.0) 10/17/18 04:43 [place] % (Auto) 8.2 % (0.0-13.0) 10/17/18 04:43 Eos % (Auto) 2.8 % (0.9-2.9) 10/17/18 04:43 Baso % (Auto) 0.1 % (0.2-1.0) L 10/17/18 04:43 Neut # (Auto) 2.1 x10^3/uL (2.2-4.8) L 10/17/18 04:43 Lymph # (Auto) 1.2 X10^3/uL (1.3-2.9) L 10/17/18 04:43 [place] # (Auto) 0.3 x10^3/uL (0.3-0.8) 10/17/18 04:43 Eos # (Auto) 0.1 x10^3/uL (0.0-0.2) 10/17/18 04:43 Baso # (Auto) 0.0 X10^3/uL (0.0-0.1) 10/17/18 04:43 Absolute Nucleated RBC 0.0 /100WBC 10/17/18 04:43 Plt Morphology Comment Normal (NORMAL) 10/15/18 06:55 RBC Morphology Normal (NORMAL) 10/15/18 06:55 Sodium 140 mmol/L (136-145) 10/17/18 04:43 Corrected Sodium 140 mmol/L (136-145) 10/17/18 04:43 Potassium 4.4 mmol/L (3.5-5.1) 10/17/18 04:43 Chloride 107 mmol/L (98-107) 10/17/18 04:43 Carbon Dioxide 24.8 mmol/L (21-32) 10/17/18 04:43 BUN 15 mg/dL (7-18) 10/17/18 04:43 Creatinine 0.58 mg/dL (0.55-1.02) 10/17/18 04:43 Est GFR (MDRD) Af Amer > 60 (>60) 10/17/18 04:43 Est GFR (MDRD) Non-Af > 60 (>60) 10/17/18 04:43 Glucose 112 mg/dL (65-99) H 10/17/18 04:43 POC Glucose (mg/dL) 104 mg/dL (65-99) H 10/14/18 20:32 Calcium 8.1 mg/dL (8.5-10.1) L 10/17/18 04:43 Corrected Calcium 9.1 mg/dL (8.5-10.1) 10/17/18 04:43 Magnesium 2.6 mg/dL (1.7-2.9) 10/16/18 05:00 Total Bilirubin 0.40 mg/dL (0.2-1.0) 10/17/18 04:43 AST 165 Units/L (15-37) H 10/17/18 04:43 ALT 142 Units/L (12-78) H 10/17/18 04:43 Alkaline Phosphatase 105 Units/L (46-116) 10/17/18 04:43 Creatine Kinase 68 Units/L (26-192) 10/17/18 10:44 CK-MB (CK-2) < 1.0 ng/mL (0-4.0) 10/17/18 10:44 CK/CKMB % Calc 1.5 % (<4) 10/17/18 10:44 Troponin I < 0.02 ng/mL (0-1.5) 10/17/18 10:44 Total Protein 5.9 g/dL (6.4-8.2) L 10/17/18 04:43 Albumin 2.7 g/dL (3.4-5.0) L 10/17/18 04:43 Globulin 3.2 g/dL (2.5-4.5) 10/17/18 04:43 Albumin/Globulin Ratio 0.8 Ratio (1.1-2.1) L 10/17/18 04:43 Amylase 72 Units/L (25-115) 10/17/18 05:18 Lipase 120 Units/L (73-393) 10/17/18 05:18 - Plan (1) Hypertensive urgency Status: Acute Plan: CARDIAC MONITORING, EKG ON ADMISSION. AM LABS, CONTINUE RESP THERAPY. PPI, NAUSEA CONTROL, CLEAR LIQUID DIET (2) Nausea vomiting and diarrhea Status: Acute (3) Abdominal pain Status: Acute Plan: PPI, NAUSEA CONTROL. CLEAR LIQUIDS, CARDIAC MONITORING. ABD SERIES, AMYLASE AND LIPASE NORMAL. CT ABD PELVIS, STOOL STUDIES (4) Hypertension Status: Acute Qualifiers: Hypertension type: essential hypertension Qualified Code(s): I10 - Essential (primary) hypertension (5) COPD (chronic obstructive pulmonary disease) Status: Chronic Qualifiers: COPD type: chronic bronchitis (6) History of DVT (deep vein thrombosis) Status: Chronic (7) Status post right mastectomy Status: Chronic (8) GERD (gastroesophageal reflux disease) Status: Chronic
[2018-10-17] MEDS: NS 1000 ML 1,000 ML IV SCH (13:38)
[2018-10-17] MEDS: CATAPRES TAB 0.1 MG PO SCH ×2 (13:39→20:22)
[2018-10-17 14:08] LABS: STOOL FOR WBC NEGATIVE (NEGATIVE)
[2018-10-17 14:28] LABS: CRYPTOSPORIDIUM PARVUM ANTIGEN NEGATIVE (NEGATIVE); GIARDIA LAMBLIA ANTIGEN NEGATIVE (NEGATIVE)
[2018-10-17] MEDS: CARDIZEM CD 360 MG PO SCH (14:33)
[2018-10-17 15:19] LABS: BILIRUBIN,URINE NEGATIVE (NEGATIVE); BLOOD/HEMOGLOBIN,URINE 3+ (NEGATIVE); GLUCOSE, URINE NEGATIVE (NEGATIVE); KETONES,URINE NEGATIVE (NEGATIVE); LEUKOCYTE ESTERASE ,URINE 3+ (NEGATIVE); NITRITES,URINE NEGATIVE (NEGATIVE); PROTEIN,URINE NEGATIVE (NEGATIVE); UROBILINOGEN,URINE NORMAL (NORMAL)
[2018-10-17 15:30] LABS: APPEARANCE,URINE HAZY (CLEAR); BACTERIA,URINE 2+ /HPF (NEGATIVE); COLOR,URINE STRAW (YELLOW); SQUAMOUS EPITHELIAL CELL,UR FEW /HPF (NEGATIVE)
--- NOTE | 2018-10-17 16:05 | CT ---
CT OF THE ABDOMEN AND PELVIS WITHOUT CONTRAST HISTORY: Upper abdominal/epigastric pain Comparison: 06/07/2013 Technique: Multiple axial images of the abdomen and pelvis were obtained from the lung bases to the pubic symphysis without the administration of IV contrast. Oral contrast was administered. Dose reduction techniques including Automated Exposure Control (AEC) and adjustment of mA and kV were utlized. Findings: The heart is normal in size. There is no pericardial effusion. Lung bases are clear without focal consolidation, pleural effusion or pneumothorax. The sensitivity for focal lesion detection within the solid abdominal viscera is diminished without the use of IV contrast. Liver and spleen are normal in size, and contour. No focal lesions. No ductal dilitation. Gallbladder absent. The pancreas is unremarkable. Adrenal glands are normal. Kidneys are normal in contour without hydronephrosis or nephrolithiasis. No bowel obstruction or inflammation. Normal appendix. No abnormal appearing mesenteric or retroperitoneal lymph nodes. No free fluid or fluid collections. Left iliac vein stent in place The bladder is normal in appearance. Uterus absent. No free fluid or abnormal pelvic lymph nodes. No aggressive osseous lesions. IMPRESSION: 1. No definite source of patient's upper abdominal pain is identified on this examination. Reported By:
[2018-10-17 16:40] LABS: ALANINE AMINOTRANSFERASE 162 Units/L (12-78); ALBUMIN 3.3 g/dL (3.4-5.0); ALKALINE PHOSPHATASE 129 Units/L (46-116); ASPARTATE AMINO TRANSFERASE 143 Units/L (15-37); BLOOD UREA NITROGEN 11 mg/dL (7-18); CALCIUM 8.5 mg/dL (8.5-10.1); CARBON DIOXIDE 25.4 mmol/L (21-32); CHLORIDE 107 mmol/L (98-107); COR CA(FOR HYPOALB) 9.1 mg/dL (8.5-10.1); CREATININE 0.57 mg/dL (0.55-1.02); SODIUM 143 mmol/L (136-145); TOTAL PROTEIN 6.8 g/dL (6.4-8.2); eGFR NON BLACK RACES > 60 (>60)
[2018-10-17] MEDS: COLACE CAP 100 MG PO SCH (20:22)
[2018-10-18] MEDS: PERCOCET TAB 5/325 MG PO PRN (00:30)
[2018-10-18 06:03] LABS: BASOPHILS # (AUTO) 0.2 X10^3/uL (0.0-0.1); BASOPHILS % (AUTO) 3.9 % (0.2-1.0); EOSINOPHILS # (AUTO) 0.1 x10^3/uL (0.0-0.2); EOSINOPHILS % (AUTO) 2.5 % (0.9-2.9); HEMATOCRIT 31.4 % (36.0-47.0); HEMOGLOBIN 10.5 g/dL (12.0-16.0); LYMPHOCYTES # (AUTO) 1.5 X10^3/uL (1.3-2.9); LYMPHOCYTES % (AUTO) 31.9 % (21.0-51.0); MEAN CORPUSCULAR HEMOGLOBIN 30.3 pg (27.0-34.0); MEAN CORPUSCULAR HGB CONC 33.4 g/dL (33.0-35.0); MEAN CORPUSCULAR VOLUME 90.5 fL (80.0-100.0); MEAN PLATELET VOLUME 8.4 fL (7.4-11.0); MONOCYTES # (AUTO) 0.4 x10^3/uL (0.3-0.8); MONOCYTES % (AUTO) 7.9 % (0.0-13.0); NEUTROPHILS # (AUTO) 2.5 x10^3/uL (2.2-4.8); NEUTROPHILS % (AUTO) 53.8 % (42.0-75.0); PLATELET COUNT 276 X10^3/uL (150.0-450.0); RED BLOOD COUNT 3.47 X10^6/uL (3.5-5.4); WHITE BLOOD COUNT 4.6 X10^3/uL (3.6-10.0)
[2018-10-18 06:22] LABS: ALANINE AMINOTRANSFERASE 145 Units/L (12-78); ALBUMIN 3.1 g/dL (3.4-5.0); ALKALINE PHOSPHATASE 121 Units/L (46-116); ASPARTATE AMINO TRANSFERASE 105 Units/L (15-37); BLOOD UREA NITROGEN 8 mg/dL (7-18); CALCIUM 8.1 mg/dL (8.5-10.1); CARBON DIOXIDE 25.1 mmol/L (21-32); CHLORIDE 105 mmol/L (98-107); COR CA(FOR HYPOALB) 8.8 mg/dL (8.5-10.1); CREATININE 0.58 mg/dL (0.55-1.02); SODIUM 140 mmol/L (136-145); TOTAL PROTEIN 6.2 g/dL (6.4-8.2); eGFR NON BLACK RACES > 60 (>60)
[2018-10-18] MEDS: PROTONIX INJ 40 MG VIAL IVP SCH (09:02)
[2018-10-18] MEDS: LOVENOX INJ 40 MG SYR SC SCH (09:02)
[2018-10-18] MEDS: CATAPRES TAB 0.1 MG PO SCH (09:02)
[2018-10-18] MEDS: COZAAR PO SCH (09:02)
[2018-10-18] MEDS: CARDIZEM CD 360 MG PO SCH (09:03)
[2018-10-18] MEDS: PATIENT'S HOME MEDICATION PO SCH (09:04)
[2018-10-18] MEDS: NS 1000 ML 1,000 ML IV SCH (13:59)
[2018-10-18 15:52] VITALS: BP 142/67
[~2018-10-18 15:53] MED LIST changes: -ANCEF 1 GM IV PREMIX* 1 GM/50 ML BAG IV ONE; +APRESOLINE INJ 20 MG VIAL IVP PRN; -BACITRACIN VIAL ONE; -COZAAR PO ONE; -DIPRIVAN VIAL ONE; -FENTANYL INJ 100 mcg ONE; +K-DUR TAB 20 MEQ PO PRN; +K-RIDER 10 MEQ/NS 100 ML 10 MEQ/100 ML BAG IV PRN; +KLOR-CON PO PRN; +LEVSIN/MAALOX/LIDOC VISC PO PRN; +MICRO K EXTEN CAP 10 MEQ PO PRN; +NORCO 10/325 TAB PO PRN; -NS 1000 ML 1,000 ML ONE; +NS 250 ML IV 250 ML IV ONE; -NS IRRIGATION 1000 ML 1,000 ML IR ONE; +NYSTATIN POWDER TOP PRN; +PEPCID 20 MG IV PREMIX* 20 MG/50 ML BAG IV SCH; +PHENERGAN INJ 25 MG ONE; +POTASSIUM CHL 40 MEQ/NS 0.45% 500 ML IV PRN; +POTASSIUM CHL 60 MEQ/NS 0.45% 500 ML IV PRN; +POTASSIUM CHLORIDE LIQ 20 MEQ UDC PO PRN; +PROVENTIL NEB TX 0.083% 2.5MG/ 3ML NEB PRN; -TOPROL XL PO ONE; -VERSED ONE; -XYLOCAINE 1 % (PLAIN) ONE; -XYLOCAINE 2 % (PLAIN) ONE
== END | disposition home or self-care (01) ==
LOC: MED/SURG
PROVIDERS: ADMIT Internal Medicine; ATTEND Internal Medicine
CPT/HCPCS: 36415; 71010; 71045; 74022; 74176; 80053; 81001; 82150; 82270; 82550; 82553; 82705; 83630; 83690; 83735; 84484; 85025; 87040; 87045; 87086; 87328; 87329; 87427; 87449; 87493; 87899; 93005; 93010; 94640; 94760; 96367; 96372; 96374; 97110; 97116; 97162; 97166; C9113; G0378; J0360; J0696; J1642; J1650; J2550; J3475; J7030; J7613

== ENCOUNTER 2019-11-13 10:48 | Observation (INO) ==
[2019-11-13] MEDS ORDERED: APRESOLINE INJ 20 MG VIAL IVP ONE (12:54)
--- NOTE | 2019-11-13 13:25 | DR.H&P ---
H&P - History & Physical for Day of: H&P Date: 11/13/19 - Chief Complaint Chief Complaint: HEADACHE, ELEVATED BP, CO FLU LIKE SYMPTOMS X 3 DAYS - History of Present Illness History of Present Illness: 64WF DIRECT ADMIT FROM DR AISSATOU KHOURY OFFICE WITH ELEVATED BLOOD PRESSURE 230/110, CO FLU LIKE ILLNESS WITH FEVER CHILLS NAUSEA AND VOMITING X 3 DAYS. PT DENIES ANY DIARRHEA. PT HAD NEGATIVE FLU SWAB IN OUR OFFICE. PT WAS GIVEN CATAPRES 0.1MG PO X 1 DOSE WITH B/P 1 HR POST 210/108. PT HAS PMH OF BREAST CA, OA, HTN, ASTHMA, COPD. PT ADMITTED FOR TREATMENT OF ACUTE HYPERTENSIVE URGENCY. - Past Medical History Past Medical History: [place], Hypertension, Asthma Additional Medical History: BREAST CANCER - Past Surgical History Surgical History: Ortho Surgery - Family History Family Medical History: Diabetes Mellitus, Cancer, [place], Coronary Artery Disease, Hypertension - Social History Does patient currently use any type of tobacco product: No Have you used tobacco products in the last 12 months: No Type of Tobacco Use: None Does any household member use tobacco: Yes Alcohol Use: None Drug Use: None Risks, benefits, and alternatives of opioids discussed: Yes Prescription drug monitoring program results: PDMP reviewed and no concerns identified - Medications Home Medications: brompheniramine Allergy (Verified 05/01/19 17:27) ciprofloxacin Allergy (Verified 05/01/19 17:27) clindamycin Allergy (Verified 05/01/19 17:27) Fish Containing Products Allergy (Verified 05/01/19 17:27) hydromorphone Allergy (Verified 05/01/19 17:27) iodine Allergy (Verified 05/01/19 17:27) meperidine Allergy (Verified 05/17/19 21:34) metaxalone Allergy (Verified 05/01/19 17:27) morphine Allergy (Verified 05/01/19 17:27) moxifloxacin Allergy (Verified 05/17/19 21:34) oxaprozin [From Daypro] Allergy (Verified 05/17/19 21:34) penicillin G Allergy (Verified 05/01/19 17:27) phenylpropanolamine Allergy (Verified 05/17/19 21:34) ranitidine Allergy (Verified 05/17/19 21:34) shrimp Allergy (Verified 05/17/19 21:34) oxcaprozin Allergy (Severe, Uncoded 10/11/18 22:27) - Review of Systems Constitutional: Fever, Chills, Weakness Eyes: No Symptoms Reported ENT: Nose Congestion Respiratory: Cough, SOB with Excertion, Wheezing Cardiovascular: No Symptoms Reported Gastrointestinal: Nausea, Vomiting. denies: Abdominal Pain, Diarrhea, Constipation Genitourinary: No Symptoms Reported Musculoskeletal: Back Pain, Leg Pain Skin: No Symptoms Reported Neurological: No Symptoms Reported - Physical Exam Vital Signs: Blood Pressure [Left Calf] 179/86 Blood Pressure [Left Arm] 162/77 Oriented: Normal Eyes: Normal Ear: Normal Nose: Normal Throat: Normal Respiratory: Wheezes Throughout, RLL Diminished, LLL Diminished Cardiovascular: Normal. negative: Edema : Normal Auscultation: Bowel Sounds: Normal Palpation: Normal Tenderness: Normal Skin: Normal Musculoskeletal: Back:Thoracic, Back:Lumbar Psychiatric: Anxiety Affect: Anxious Speech Pattern: Clear, Appropriate - Assessment/Plan (1) Hypertensive urgency Status: Acute Plan: ADMIT, EKG ON ADMISSION. BP CONTROL, IV HYDRATION. ADMISSION LABS, RESP CONSULT FOR DUO NEBS, SUPPLEMENTAL O2 PRN. CARDIAC MONITORING, CT HEAD ON ADMISSION. IV ROCEPHIN FOR URI SYMPTOMS. (2) Sinusitis Status: Acute Plan: ROCEPHIN 1GM IV DAILY (3) Headache Qualifiers: Headache type: unspecified Headache chronicity pattern: acute headache Intractability: intractable Qualified Code(s): R51 - Headache Status: Acute (4) Status post right mastectomy Status: Chronic (5) Disc disease, degenerative, lumbar or lumbosacral Status: Chronic (6) History of TIA (transient ischemic attack) Status: Chronic - Allergies Allergies/Adverse Reactions: Allergies Allergy/AdvReac Type Severity Reaction Status Date / Time brompheniramine Allergy Verified 05/01/19 17:27 ciprofloxacin Allergy Verified 05/01/19 17:27 clindamycin Allergy Verified 05/01/19 17:27 Fish Containing Products Allergy Verified 05/01/19 17:27 hydromorphone Allergy Verified 05/01/19 17:27 iodine Allergy Verified 05/01/19 17:27 meperidine Allergy Verified 05/17/19 21:34 metaxalone Allergy Verified 05/01/19 17:27 morphine Allergy Verified 05/01/19 17:27 moxifloxacin Allergy Verified 05/17/19 21:34 oxaprozin [From Daypro] Allergy Verified 05/17/19 21:34 penicillin G Allergy Verified 05/01/19 17:27 phenylpropanolamine Allergy Verified 05/17/19 21:34 ranitidine Allergy Verified 05/17/19 21:34 shrimp Allergy Verified 05/17/19 21:34 oxcaprozin Allergy Severe Uncoded 10/11/18 22:27
[2019-11-13] MEDS: ROCEPHIN VIAL 1 GRAM 1 G in NS 100 ML IV + SPIKE MINIBAG* 100 ML IV SCH (13:50)
[2019-11-13 13:52] VITALS: BMI 35.6
[2019-11-13 14:03] LABS: CREATINE KINASE 98 Units/L (26-192); CREATINE KINASE MB < 1.0 ng/mL (0-4.0); TROPONIN I < 0.02 ng/mL (0-1.5)
[2019-11-13] MEDS ORDERED: NS 500 ML IV 500 ML IV ONE (14:23)
[2019-11-13] MEDS: BENICAR TAB 40 MG PO SCH (15:45)
[2019-11-13 15:50] LABS: BASOPHILS # (AUTO) 0.1 X10^3/uL (0.0-0.1); EOSINOPHILS % (AUTO) 0.6 % (0.9-2.9); HEMATOCRIT 41.2 % (36.0-47.0); HEMOGLOBIN 13.9 g/dL (12.0-16.0); LYMPHOCYTES # (AUTO) 1.6 X10^3/uL (1.3-2.9); LYMPHOCYTES % (AUTO) 21.4 % (21.0-51.0); MEAN CORPUSCULAR HEMOGLOBIN 30.1 pg (27.0-34.0); MEAN CORPUSCULAR HGB CONC 33.7 g/dL (33.0-35.0); MEAN CORPUSCULAR VOLUME 89.2 fL (80.0-100.0); MEAN PLATELET VOLUME 7.6 fL (7.4-11.0); MONOCYTES # (AUTO) 0.4 x10^3/uL (0.3-0.8); MONOCYTES % (AUTO) 5.3 % (0.0-13.0); NEUTROPHILS # (AUTO) 5.2 x10^3/uL (2.2-4.8); NEUTROPHILS % (AUTO) 71.7 % (42.0-75.0); PLATELET COUNT 330 X10^3/uL (150.0-450.0); RED BLOOD COUNT 4.62 X10^6/uL (3.5-5.4); RED CELL DISTRIBUTION WIDTH 15.2 % (11.6-16.5); WHITE BLOOD COUNT 7.3 X10^3/uL (3.6-10.0)
[2019-11-13 16:01] LABS: BAND NEUTROPHILS % 1 % (0-10)
[2019-11-13 16:02] LABS: ALANINE AMINOTRANSFERASE 26 Units/L (12-78); ALBUMIN 3.8 g/dL (3.4-5.0); ALKALINE PHOSPHATASE 123 Units/L (46-116); ASPARTATE AMINO TRANSFERASE 19 Units/L (15-37); BLOOD UREA NITROGEN 18 mg/dL (7-18); CALCIUM 9.2 mg/dL (8.5-10.1); CARBON DIOXIDE 26.6 mmol/L (21-32); CHLORIDE 106 mmol/L (98-107); COR NA(FOR HYPERGLY) 145 mmol/L (136-145); CREATININE 0.69 mg/dL (0.55-1.02); PLATELET MORPHOLOGY COMMENT NORMAL (NORMAL); SODIUM 144 mmol/L (136-145); TOTAL PROTEIN 7.7 g/dL (6.4-8.2); eGFR NON BLACK RACES > 60 (>60)
[2019-11-13 16:39] LABS: BILIRUBIN,URINE NEGATIVE (NEGATIVE); BLOOD/HEMOGLOBIN,URINE 1+ (NEGATIVE); GLUCOSE, URINE NEGATIVE (NEGATIVE); KETONES,URINE NEGATIVE (NEGATIVE); LEUKOCYTE ESTERASE ,URINE 3+ (NEGATIVE); NITRITES,URINE POSITIVE (NEGATIVE); PROTEIN,URINE 2+ (NEGATIVE); UROBILINOGEN,URINE NORMAL (NORMAL)
[2019-11-13 16:47] LABS: APPEARANCE,URINE HAZY (CLEAR); BACTERIA,URINE 2+ /HPF (NEGATIVE); COLOR,URINE YELLOW (YELLOW); SQUAMOUS EPITHELIAL CELL,UR RARE /HPF (NEGATIVE)
--- NOTE | 2019-11-13 17:00 | RAD ---
HISTORYWHEEZINGSTUDYCHEST, 1 [id number]/16/2019.FINDINGSLeft-sided Port-A-Cath is seen inserted via subclavian approach. The catheter tip is at the upper is BC. The trachea is midline. The heart size is upper normal. Lungs an d pleural spaces are clear. There is evidence of a right mastectomy with right axillary node dissecti on. Osseous structures are intact.IMPRESSIONNo acute cardiopulmonary disease.Electronically signed by : YOHANNES MOLINA (Nov 13, 2019 16:59:21)
--- NOTE | 2019-11-13 19:42 | CT ---
HISTORY: Hypertension and headacheStudy: CT brain without contrastComparison: 06/20/2018Technique:Multiple axial images of the brain were obtained from the skull base to the vertex without administration of IV contrast. Automated dose control was utilized.Findings:The ventricles are mildly enlarged with diffuse mild prominence of the cortical sulci which is unchanged. There is moderate periventricular low density bilaterally which is unchanged. No intracranial hemorrhage or edema is seen. There is no extra-axial fluid collection or mass. There is mild mucosal thickening throughout the ethmoid and maxillary sinuses. The midline structures unremarkable.IMPRESSION:Mild atrophy and moderate chronic microischemic changes the deep white matter with no acute abnormality seen.Electronically signed by: CHELSIE HEAD (Nov 13, 2019 19:40:28)
[2019-11-13] MEDS ORDERED: POTASSIUM CHL 40 MEQ/NS 0.45% 500 ML IV PRN (20:00)
[2019-11-13] MEDS ORDERED: MICRO K EXTEN CAP 10 MEQ PO PRN (20:00)
[2019-11-13] MEDS ORDERED: POTASSIUM CHL 60 MEQ/NS 0.45% 500 ML IV PRN (20:00)
[2019-11-13] MEDS ORDERED: K-DUR TAB 20 MEQ PO PRN (20:00)
[2019-11-13] MEDS ORDERED: MAGNESIUM SULFATE 1 GRAM/100 mL PREMIX 1 GM/100 ML BAG IV PRN (20:00)
[2019-11-13] MEDS ORDERED: K-RIDER 10 MEQ/NS 100 ML 10 MEQ/100 ML BAG IV PRN (20:00)
[2019-11-13] MEDS ORDERED: POTASSIUM CHLORIDE LIQ 20 MEQ UDC PO PRN (20:00)
[2019-11-13] MEDS: LIPITOR TAB 40 MG PO SCH (20:56)
[2019-11-13] MEDS: KLOR-CON PO PRN (22:16)
[2019-11-13] MEDS: PERCOCET TAB 5/325 MG PO PRN (23:53)
[2019-11-14 06:27] LABS: BASOPHILS % (AUTO) 0.7 % (0.2-1.0); EOSINOPHILS # (AUTO) 0.1 x10^3/uL (0.0-0.2); EOSINOPHILS % (AUTO) 1.3 % (0.9-2.9); HEMOGLOBIN 11.9 g/dL (12.0-16.0); LYMPHOCYTES # (AUTO) 1.7 X10^3/uL (1.3-2.9); MEAN CORPUSCULAR HEMOGLOBIN 30.5 pg (27.0-34.0); MEAN CORPUSCULAR VOLUME 89.6 fL (80.0-100.0); MONOCYTES # (AUTO) 0.5 x10^3/uL (0.3-0.8); MONOCYTES % (AUTO) 7.1 % (0.0-13.0); NEUTROPHILS # (AUTO) 4.2 x10^3/uL (2.2-4.8); NEUTROPHILS % (AUTO) 64.9 % (42.0-75.0); PLATELET COUNT 319 X10^3/uL (150.0-450.0); RED CELL DISTRIBUTION WIDTH 15.2 % (11.6-16.5); WHITE BLOOD COUNT 6.5 X10^3/uL (3.6-10.0)
[2019-11-14 06:43] LABS: ALANINE AMINOTRANSFERASE 27 Units/L (12-78); ALBUMIN 3.1 g/dL (3.4-5.0); ALKALINE PHOSPHATASE 102 Units/L (46-116); ASPARTATE AMINO TRANSFERASE 18 Units/L (15-37); BLOOD UREA NITROGEN 21 mg/dL (7-18); CALCIUM 8.5 mg/dL (8.5-10.1); CARBON DIOXIDE 26.7 mmol/L (21-32); CHLORIDE 107 mmol/L (98-107); COR CA(FOR HYPOALB) 9.2 mg/dL (8.5-10.1); CREATININE 0.71 mg/dL (0.55-1.02); SODIUM 143 mmol/L (136-145); TOTAL PROTEIN 6.6 g/dL (6.4-8.2); eGFR NON BLACK RACES > 60 (>60)
[2019-11-14] MEDS ORDERED: TOPROL XL PO ONE (08:42)
[2019-11-14] MEDS: ROCEPHIN VIAL 1 GRAM 1 G in NS 100 ML IV + SPIKE MINIBAG* 100 ML IV SCH (08:50)
[2019-11-14] MEDS: ASPIRIN 81 MG CHEWTAB PO SCH (08:53)
[2019-11-14] MEDS: TOPROL XL PO SCH (08:54)
[2019-11-14] MEDS: BENICAR TAB 40 MG PO SCH (08:54)
[2019-11-14] MEDS: PERCOCET TAB 5/325 MG PO PRN ×2 (12:48→19:36)
[2019-11-14] MEDS: APRESOLINE INJ 20 MG VIAL IVP PRN ×2 (13:48→23:19)
[2019-11-14] MEDS: LIPITOR TAB 40 MG PO SCH (20:53)
[2019-11-14 21:25] LABS: BILIRUBIN,URINE NEGATIVE (NEGATIVE); BLOOD/HEMOGLOBIN,URINE NEGATIVE (NEGATIVE); GLUCOSE, URINE NEGATIVE (NEGATIVE); KETONES,URINE NEGATIVE (NEGATIVE); LEUKOCYTE ESTERASE ,URINE 2+ (NEGATIVE); NITRITES,URINE NEGATIVE (NEGATIVE); PROTEIN,URINE NEGATIVE (NEGATIVE); UROBILINOGEN,URINE NORMAL (NORMAL)
[2019-11-14 21:31] LABS: APPEARANCE,URINE HAZY (CLEAR); BACTERIA,URINE TRACE /HPF (NEGATIVE); COLOR,URINE YELLOW (YELLOW); RBC,URINE NONE SEEN /HPF (0-3); SQUAMOUS EPITHELIAL CELL,UR MODERATE /HPF (NEGATIVE)
[2019-11-15 05:40] LABS: ALANINE AMINOTRANSFERASE 29 Units/L (12-78); ALBUMIN 3.3 g/dL (3.4-5.0); ALKALINE PHOSPHATASE 108 Units/L (46-116); ASPARTATE AMINO TRANSFERASE 17 Units/L (15-37); BLOOD UREA NITROGEN 18 mg/dL (7-18); CARBON DIOXIDE 28.3 mmol/L (21-32); CHLORIDE 103 mmol/L (98-107); COR CA(FOR HYPOALB) 9.6 mg/dL (8.5-10.1); CREATININE 0.69 mg/dL (0.55-1.02); SODIUM 139 mmol/L (136-145); TOTAL PROTEIN 6.7 g/dL (6.4-8.2); eGFR NON BLACK RACES > 60 (>60)
[2019-11-15] MEDS: KLOR-CON PO PRN (06:15)
[2019-11-15 06:30] LABS: BASOPHILS # (AUTO) 0.1 X10^3/uL (0.0-0.1); BASOPHILS % (AUTO) 1.2 % (0.2-1.0); EOSINOPHILS # (AUTO) 0.1 x10^3/uL (0.0-0.2); EOSINOPHILS % (AUTO) 1.5 % (0.9-2.9); HEMATOCRIT 37.3 % (36.0-47.0); HEMOGLOBIN 12.7 g/dL (12.0-16.0); LYMPHOCYTES # (AUTO) 1.5 X10^3/uL (1.3-2.9); LYMPHOCYTES % (AUTO) 21.3 % (21.0-51.0); MEAN CORPUSCULAR HEMOGLOBIN 30.6 pg (27.0-34.0); MEAN CORPUSCULAR HGB CONC 33.9 g/dL (33.0-35.0); MONOCYTES # (AUTO) 0.5 x10^3/uL (0.3-0.8); MONOCYTES % (AUTO) 6.2 % (0.0-13.0); NEUTROPHILS % (AUTO) 69.8 % (42.0-75.0); PLATELET COUNT 325 X10^3/uL (150.0-450.0); RED BLOOD COUNT 4.14 X10^6/uL (3.5-5.4); RED CELL DISTRIBUTION WIDTH 14.8 % (11.6-16.5); WHITE BLOOD COUNT 7.2 X10^3/uL (3.6-10.0)
[2019-11-15] MEDS ORDERED: TOPROL XL PO ONE (08:58)
[2019-11-15] MEDS ORDERED: BENICAR TAB 40 MG PO SCH (09:00)
[2019-11-15] MEDS: TOPROL XL PO SCH (09:11)
[2019-11-15] MEDS: ROCEPHIN VIAL 1 GRAM 1 G in NS 100 ML IV + SPIKE MINIBAG* 100 ML IV SCH (09:11)
[2019-11-15] MEDS: PERCOCET TAB 5/325 MG PO PRN (09:12)
[2019-11-15] MEDS: ASPIRIN 81 MG CHEWTAB PO SCH (09:12)
[2019-11-15 13:39] VITALS: BP 150/69
[2019-11-15] MEDS ORDERED: PERCOCET TAB 5/325 MG PO PRN (13:54)
== END 2019-11-15 17:50 | disposition home or self-care (01) ==
LOC: MED/SURG
PROVIDERS: ADMIT Internal Medicine; ATTEND Internal Medicine
DX: Z85.3 Personal history of malignant neoplasm of breast; I10 Essential (primary) hypertension; Z86.73 Personal history of transient ischemic attack (TIA), and cerebral infarction without residual deficits; R26.89 Other abnormalities of gait and mobility; R51 Headache; E78.49 Other hyperlipidemia; Z90.11 Acquired absence of right breast and nipple; J01.90 Acute sinusitis, unspecified; R94.31 Abnormal electrocardiogram [ECG] [EKG]; E87.6 Hypokalemia; I16.0 Hypertensive urgency; J44.9 Chronic obstructive pulmonary disease, unspecified; M51.36 Other intervertebral disc degeneration, lumbar region; Z91.14 Patient's other noncompliance with medication regimen; Z79.899 Other long term (current) drug therapy
CPT/HCPCS: 36415; 70450; 71010; 71045; 80053; 81001; 82550; 82553; 83735; 84484; 85025; 87086; 93005; 96372; 97161; 97165; A4222; G0378; J0360; J0696; J1642; J7040; J7050

== ENCOUNTER 2021-01-04 16:39 | Observation (INO) ==
[2021-01-04 16:46] VITALS: BMI 36.2
[2021-01-04] MEDS ORDERED: DUONEB 0.5 MG/3 MG (3 mL) NEB ONE ×4 (18:21→23:00)
[2021-01-04] MEDS ORDERED: SOLU-Medrol 125 MG VIAL IVP ONE (18:21)
--- NOTE | 2021-01-04 18:21 | DR.GENAD ---
HPI - PCP Primary Care Physician: Chucho - Complaint/Symptoms Chief Complaint Doctors Comments: Patient is complaining of wheezing, SOB and xiphoid chest pain for the past 24 hours getting progressively worst. Patient states she has been taking her BREO inhaler and nebulizers without improvement. She has a non-productive cough. She denies tobacco, alcohol or drug usage. She is a patient of Dr. Rankin and states her blood pressure has been elevated for the past two days at home. Chief Complaint:: Patient came to ER reports zach blood pressure x 2 days. - COVID-19 Coronavirus risk:travel/contact w/high risk person: No Has patient experienced Coronavirus symptoms: No Coronavirus symptoms experienced: Coughing, Shortness of Breath - Nurses notes reviewed Nurses Notes Review: Yes - Source History Provided: Patient - Mode of Arrival Mode of Arrival: Ambulatory - Timing Onset of Chief Complaint: 01/03/21 Came on: Gradually - Duration Duration: Constant How lon Duration: Days - Severity Severity: Moderate - Modifying Factors Worsens:: nothing Improves:: nothing PMH - PMH Past Medical History: Yes Past Medical History: Asthma, CVA, Hypertension Past Medical History Comment: [place] Past Surgical History: Yes Surgical History: Cholecystectomy, Hysterectomy, Ortho Surgery Past Surgical History Comment: Back surgery, left arm from fx, left foot for fx - Family History History of Family Medical Conditions: Yes Family Medical History: Cancer, Coronary Artery Disease, Hypertension - Social History Alcohol Use: None Do you use any recreational Drugs:: No Lives With: Spouse Lives Where: Home - Travel Risk Coronavirus risk:travel/contact w/high risk person: No Has patient experienced Coronavirus symptoms: No - infectious screening In the last 2 months have you had wt loss of >10#?: NO Have you had fever, night sweats or hemotysis?: No Have you traveled outside the country in the last 6 months?: No Isolation: Standard ROS - Review of Systems Constitutional: No Symptoms Reported Eyes: No Symptoms Reported ENTM: No Symptoms Reported Respiratoy: No Symptoms Reported, Non-Productive Cough, Short of Breath, Wheezing Cardiovascular: No Symptoms Reported, Chest Pain. negative: See HPI, Edema, Palpitations, Syncope, Cyanosis, Skin Mottling, Other Gastrointestinal/Abdominal: No Symptoms Reported. negative: See HPI, Abdominal Pain, Constipation, Diarrhea, Nausea, Vomiting, Food Intolerance, Other Genitourinary: No Symptoms Reported. negative: See HPI, Discharge, Dysuria, Frequency, Hematuria, Pain, Bleeding, Other Neurological: No Symptoms Reported Musculoskeletal: No Symptoms Reported Integumentary: No Symptoms Reported Hematologic/Lymphatic: No Symptoms Reported Endocrine: No Symptoms Reported Psychiatric: No Symptoms Reported. negative: See HPI, Anxiety, Depression, Hallucinations, Excessive crying, Suicidal, Other PE - General Limitations: No Limitations General Appearance: Alert, In Distress (moderate) - Head Head Exam: Normal Inspection, Atraumatic, Normocephalic - Eyes Eye exam: Normal Appearance, PERRL, EOMI. negative: Scleral Icterus, Conjunctival Injection, Nystagmus, Miosis, Mydrasis, Periorbital Swelling, Periorbital Tenderness, Other - ENT ENT Exam: Normal Exam, Normal Oropharynx, Normal External Ear Exam, Mucous Mem branes Moist, TM's Normal Bilaterally External Ear Exam: Normal External Inspection TM/Canal Exam: Bilateral Normal Nose Exam: Normal Nose Exam Mouth Exam: Normal Inspection Throat Exam: Normal Inspection. negative: Tonsillar Erythema, Tonsillomegaly, Tonsillar Exudate, R Peritonsillar Mass, L Peritonsillar Mass, Muffled Voice, Other - Neck Neck Exam: Normal Inspection, Full ROM, Trachea Midline. negative: Tenderness, Meningismus, Lymphadenopathy, Thyromegaly, Other - Chest Chest Inspection: Normal Inspection, Symmetric Chest Wall Rise - Respiratory Respiratory Exam: Normal Lung Sounds Bilat Respiratory Exam: Bilateral Wheezing, Bilateral Rhonchi - Cardiovascular Cardiovascular Exam: Regular Rate, Normal Rhythm, Normal Heart Sounds, Systolic Murmur - Abdominal Exam Abdominal Exam: Normal Inspection, Normal Bowel Sounds, Soft. negative: Dist ention, Tenderness, Guarding, Rebound, Rigidity, Dimnished Bowel Sounds, Hyperactive Bowel Sounds, Hypoactive Bowel Sounds, Organomegaly, Trauma, Incision, Ascites, Mass, Bruit, Pulsatile Mass, Hernia, Other Abdominal Tenderness: negative: RUQ, RLQ, LUQ, LLQ, Epigastrium, Suprapubic, Diffuse, Mild, Moderate, Severe, Other - Extremities Extremities Exam: Normal Inspection, Full ROM, Normal Capillary Refill. negative: Tenderness, Edema, Joint Swelling, Calf Tenderness, Other - Back Back Exam: Normal Inspection, Full ROM. negative: Tenderness, (R) CVA Tenderness, (L) CVA Tenderness, Muscle Spasm, Paraspinal Tenderness, Vertebral Tenderness, Rashes, (R) Sciatic Notch Tenderness, (L) Sciatic Notch Tendern, (R) Straight Leg Raise, (L) Straight Leg Raise, Other - Neurologic Neurological Exam: Alert, Oriented X3, CN II-XII Intact, Normal Gait, Reflexes Normal - Psychiatric Psychiatric Exam: Normal Affect, Normal Mood. negative: Depressed, Agitated, Anxious, Flat Affect, Manic, Homicidal Ideation, Suicidal Ideation, Other - Skin Skin Exam: Warm, Dry, Intact, Normal Color. negative: Rash, Cyanosis, Diaphoresis, Erythema, Pallor, Mottled, Other - Vital Signs Vitals: Temperature 99.6 F Pulse Rate [Left Radial] 93 Pulse Rate 85 Respiratory Rate 22 Blood Pressure [Left Calf] 179/86 Blood Pressure [Left Arm] 183/77 Blood Pressure 203/95 O2 Sat by Pulse Oximetry 96 Course - Reevaluation 1st: Improved - Consultation Called: 23:01 Call Returned: 23:02 (Dr. Lyons to admit) - Education/Counseling Education/Counseling: Patient, Family Educated On: Treatment, Diagnosis, Needs for Follow Up ROR - Labs Reviewed Laboratory Results Reviewed?: Yes (All labs and x-ray results reviewed and discussed with patient) Result Diagrams: 01/04/21 18:40 01/04/21 18:40 - XRAY XRAY Interpreted by: Radiologist (CXR: No acardiomegaly. No focal airspace disease. No pleural effusion. No pneumothorax. No imaging findings of acute cardiopulmonary disease.) - EKG Rate: 82 [place]: Normal Rhythm: NSR Block: None Hypertrophy: None ST: Nonsp - Labs Reviewed Laboratory: WBC 7.0 X10^3/uL (3.6-10.0) 01/04/21 18:40 RBC 4.56 X10^6/uL (3.5-5.4) 01/04/21 18:40 Hgb 13.1 g/dL (12.0-16.0) 01/04/21 18:40 Hct 39.9 % (36.0-47.0) 01/04/21 18:40 MCV 87.6 fL (80.0-100.0) 01/04/21 18:40 MCH 28.7 pg (27.0-34.0) 01/04/21 18:40 MCHC 32.8 g/dL (33.0-35.0) L 01/04/21 18:40 RDW 14.9 % (11.6-16.5) 01/04/21 18:40 Plt Count 420 X10^3/uL (150.0-450.0) 01/04/21 18:40 MPV 8.1 fL (7.4-11.0) 01/04/21 18:40 Neut % (Auto) 60.4 % (42.0-75.0) 01/04/21 18:40 Lymph % (Auto) 30.5 % (21.0-51.0) 01/04/21 18:40 [place] % (Auto) 6.5 % (0.0-13.0) 01/04/21 18:40 Eos % (Auto) 1.6 % (0.9-2.9) 01/04/21 18:40 Baso % (Auto) 1.0 % (0.2-1.0) 01/04/21 18:40 Neut # (Auto) 4.2 x10^3/uL (2.2-4.8) 01/04/21 18:40 Lymph # (Auto) 2.1 X10^3/uL (1.3-2.9) 01/04/21 18:40 [place] # (Auto) 0.5 x10^3/uL (0.3-0.8) 01/04/21 18:40 Eos # (Auto) 0.1 x10^3/uL (0.0-0.2) 01/04/21 18:40 Baso # (Auto) 0.1 X10^3/uL (0.0-0.1) 01/04/21 18:40 Absolute Nucleated RBC 0.1 /100WBC 01/04/21 18:40 PT 12.3 SECONDS (11.8-14.3) 01/04/21 18:40 INR Target Range - 01/04/21 18:40 INR 0.94 (0.8-1.3) 01/04/21 18:40 APTT 27.6 SECONDS (22.9-36.5) 01/04/21 18:40 PTT Comment - 01/04/21 18:40 Sodium 141 mmol/L (136-145) 01/04/21 18:40 Corrected Sodium TNP 01/04/21 18:40 Potassium 3.8 mmol/L (3.5-5.1) 01/04/21 18:40 Chloride 104 mmol/L (98-107) 01/04/21 18:40 Carbon Dioxide 28.7 mmol/L (21-32) 01/04/21 18:40 BUN 23 mg/dL (7-18) H 01/04/21 18:40 Creatinine 0.86 mg/dL (0.55-1.02) 01/04/21 18:40 Est GFR (MDRD) Af Amer > 60 (>60) 01/04/21 18:40 Est GFR (MDRD) Non-Af > 60 (>60) 01/04/21 18:40 Glucose 101 mg/dL (65-99) H 01/04/21 18:40 Calcium 9.9 mg/dL (8.5-10.1) 01/04/21 18:40 Corrected Calcium TNP 01/04/21 18:40 Magnesium 1.9 mg/dL (1.7-2.9) 01/04/21 18:40 Total Bilirubin 0.60 mg/dL (0.2-1.0) 01/04/21 18:40 AST 38 Units/L (15-37) H 01/04/21 18:40 ALT 69 Units/L (12-78) 01/04/21 18:40 Alkaline Phosphatase 153 Units/L (46-116) H 01/04/21 18:40 Creatine Kinase 75 Units/L (26-192) 01/04/21 18:40 CK-MB (CK-2) 1.2 ng/mL (0-4.0) 01/04/21 18:40 CK/CKMB % Calc 1.6 % (<4) 01/04/21 18:40 Troponin I < 0.02 ng/mL (0-1.5) 01/04/21 18:40 Total Protein 7.9 g/dL (6.4-8.2) 01/04/21 18:40 Albumin 4.0 g/dL (3.4-5.0) 01/04/21 18:40 Globulin 3.9 g/dL (2.5-4.5) 02/20/21 18:40 Albumin/Globulin Ratio 1.0 Ratio (1.1-2.1) L 01/04/21 18:40 SARS CoV-2 RNA Rapid HUBERT Negative (NEGATIVE) 01/04/21 21:40 Opioid - Opioid Risk Tool Age (Sky box if 16-45): No History of Preadolescent Sexual Abuse: No Total: 0 Total Score Risk Category: Low Risk - Diagnosis Discharge Problem: COPD with acute exacerbation, Chest pain in adult, Accelerated hypertension, Respiratory distress, acute - Discharge Plan Disposition: HOME, SELF-CARE Condition: Stable
[2021-01-04] MEDS ORDERED: ASPIRIN PO ONE (18:22)
[2021-01-04] MEDS ORDERED: ASPIRIN ONE (18:24)
[2021-01-04] MEDS ORDERED: SOLU-Medrol 125 MG VIAL ONE (18:24)
[2021-01-04 18:54] LABS: BASOPHILS # (AUTO) 0.1 X10^3/uL (0.0-0.1); EOSINOPHILS # (AUTO) 0.1 x10^3/uL (0.0-0.2); EOSINOPHILS % (AUTO) 1.6 % (0.9-2.9); HEMATOCRIT 39.9 % (36.0-47.0); HEMOGLOBIN 13.1 g/dL (12.0-16.0); LYMPHOCYTES # (AUTO) 2.1 X10^3/uL (1.3-2.9); LYMPHOCYTES % (AUTO) 30.5 % (21.0-51.0); MEAN CORPUSCULAR HEMOGLOBIN 28.7 pg (27.0-34.0); MEAN CORPUSCULAR HGB CONC 32.8 g/dL (33.0-35.0); MEAN CORPUSCULAR VOLUME 87.6 fL (80.0-100.0); MEAN PLATELET VOLUME 8.1 fL (7.4-11.0); MONOCYTES # (AUTO) 0.5 x10^3/uL (0.3-0.8); MONOCYTES % (AUTO) 6.5 % (0.0-13.0); NEUTROPHILS # (AUTO) 4.2 x10^3/uL (2.2-4.8); NEUTROPHILS % (AUTO) 60.4 % (42.0-75.0); PLATELET COUNT 420 X10^3/uL (150.0-450.0); RED BLOOD COUNT 4.56 X10^6/uL (3.5-5.4); RED CELL DISTRIBUTION WIDTH 14.9 % (11.6-16.5)
[2021-01-04 19:07] LABS: BLOOD UREA NITROGEN 23 mg/dL (7-18); CALCIUM 9.9 mg/dL (8.5-10.1); CARBON DIOXIDE 28.7 mmol/L (21-32); CHLORIDE 104 mmol/L (98-107); CREATININE 0.86 mg/dL (0.55-1.02); SODIUM 141 mmol/L (136-145); TROPONIN I < 0.02 ng/mL (0-1.5); eGFR NON BLACK RACES > 60 (>60)
[2021-01-04 19:11] LABS: ALANINE AMINOTRANSFERASE 69 Units/L (12-78); ALKALINE PHOSPHATASE 153 Units/L (46-116); ASPARTATE AMINO TRANSFERASE 38 Units/L (15-37); CKMB % 1.6 % (<4); CREATINE KINASE 75 Units/L (26-192); CREATINE KINASE MB 1.2 ng/mL (0-4.0); MAGNESIUM 1.9 mg/dL (1.7-2.9); TOTAL PROTEIN 7.9 g/dL (6.4-8.2)
--- NOTE | 2021-01-04 19:31 | RAD ---
HISTORYsob, wheezingSTUDYCHEST, 1 VIEWCOMPARISONSeptember 2019[facility] AP portable projection, 1 imageFINDINGSNo cardiomegaly.No focal airspace disease.No pleural effusion.No pneumothorax.No acute osseous abnormality.Left chest port in place.Surgical clips in the right upper quadrant; likely representing a prior cholecystectomy.Fusion hardware in the cervical spine.Surgical clips in the right axilla.IMPRESSIONNo imaging findings of acute cardiopulmonary disease.Electronically signed by: Macho Tierney (Jan 04, 2021 19:29:33)
[2021-01-04] MEDS ORDERED: ROCEPHIN VIAL 1 GRAM 1 G in NS 100 ML IV + SPIKE MINIBAG* 100 ML IV ONE (20:30)
[2021-01-04] MEDS ORDERED: NS 100 ML IV 100 ML IV ONE (20:42)
[2021-01-04] MEDS ORDERED: ROCEPHIN VIAL 1 GRAM ONE (20:42)
[2021-01-04] MEDS ORDERED: TORADOL 30 MG VIAL IVP ONE (22:59)
[2021-01-04] MEDS ORDERED: TORADOL 30 MG VIAL ONE (23:18)
[2021-01-05] MEDS ORDERED: CATAPRES TAB 0.2 MG ONE (03:19)
[2021-01-05] MEDS ORDERED: NORCO 5/325 MG TAB ONE (03:19)
[2021-01-05] MEDS ORDERED: APRESOLINE TAB 25 MG ONE (03:25)
[2021-01-05] MEDS: APRESOLINE TAB 25 MG PO SCH ×3 (03:30→20:08)
[2021-01-05] MEDS: NORCO 5/325 MG TAB PO PRN ×2 (03:30→19:42)
[2021-01-05] MEDS: DUONEB 0.5 MG/3 MG (3 mL) NEB SCH ×6 (04:10→20:33)
[2021-01-05] MEDS ORDERED: SOLU-Medrol 40 MG VIAL ONE (08:22)
[2021-01-05] MEDS ORDERED: LASIX ONE (08:22)
[2021-01-05] MEDS: VSL#3 PO SCH (08:54)
[2021-01-05] MEDS: SOLU-Medrol 40 MG VIAL IVP SCH ×2 (08:54→17:31)
[2021-01-05] MEDS: LASIX PO SCH (08:55)
[2021-01-05] MEDS: BENICAR TAB 40 MG PO SCH (08:55)
--- NOTE | 2021-01-05 10:40 | DR.H&P ---
H&P History & Physical for Day of: H&P Date: 01/05/21 Chief Complaint Chief Complaint: Shortness of breath Allergies Allergies Allergy/AdvReac Type Severity Reaction Status Date / Time brompheniramine Allergy Verified 11/13/19 13:29 ciprofloxacin Allergy Verified 11/13/19 13:29 clindamycin Allergy Verified 11/13/19 13:29 Fish Containing Products Allergy Verified 11/13/19 13:29 hydromorphone Allergy Verified 11/13/19 13:29 iodine Allergy Verified 11/13/19 13:29 meperidine Allergy Verified 11/13/19 13:29 metaxalone Allergy Verified 11/13/19 13:29 morphine Allergy Verified 11/13/19 13:29 moxifloxacin Allergy Verified 11/13/19 13:29 oxaprozin [From Daypro] Allergy Verified 11/13/19 13:29 penicillin G Allergy Verified 11/13/19 13:29 phenylpropanolamine Allergy Verified 11/13/19 13:29 ranitidine Allergy Verified 11/13/19 13:29 shrimp Allergy Verified 11/13/19 13:29 oxcaprozin Allergy Severe Uncoded 11/13/19 13:29 History of Present Illness History of Present Illness: Pt is a 65 year old female past medical history of COPD, HTN, admitted for COPD exacerbation after having worsening shortness of b reath for the past 2-3 days. Pt denies fevers, chills, chest pain. Reports wheezing and generalized weakness. States she uses her nebulizer at home but it was not helping. Labs/imaging: Wbc 7, Hgb 13.1, Plt 420, Na 141, K 3.8, Cr 0.86, Glucose 101. AST 38, ALT 69, ALKP 153, Troponin negative, COVID-19 negative, CXR negative for acute cardiopulmonary findings. Pt was started on IV solumedrol 80mg Q8H, and Duo-nebs Q4H resp. She is requiring 2L nasal cannula supplemental oxygen, will wean as tolerated. Resume home medications. Continue to monitor and follow up labs/imaging in the morning. Past Medical History Past Medical History: Asthma, CVA and Hypertension Additional Medical History: BREAST CANCER Past Surgical History Surgical History: Cholecystectomy, Hysterectomy and Ortho Surgery Family History Family Medical History: Cancer, Coronary Artery Disease and Hypertension Social History Alcohol Use: None Drug Use: None Medications Home Medications: brompheniramine Allergy (Verified 11/13/19 13:29) ciprofloxacin Allergy (Verified 11/13/19 13:29) clindamycin Allergy (Verified 11/13/19 13:29) Fish Containing Products Allergy (Verified 11/13/19 13:29) hydromorphone Allergy (Verified 11/13/19 13:29) iodine Allergy (Verified 11/13/19 13:29) meperidine Allergy (Verified 11/13/19 13:29) metaxalone Allergy (Verified 11/13/19 13:29) morphine Allergy (Verified 11/13/19 13:29) moxifloxacin Allergy (Verified 11/13/19 13:29) oxaprozin [From Daypro] Allergy (Verified 11/13/19 13:29) penicillin G Allergy (Verified 11/13/19 13:29) phenylpropanolamine Allergy (Verified 11/13/19 13:29) ranitidine Allergy (Verified 11/13/19 13:29) shrimp Allergy (Verified 11/13/19 13:29) oxcaprozin Allergy (Severe, Uncoded 11/13/19 13:29) CONTINUE taking the following medications amlodipine 10 mg PO ONCE 01/04/21 [History] hydralazine 50 mg PO BID 01/04/21 [History] Labs Result Diagrams: 01/04/21 18:40 01/04/21 18:40 Labs: Laboratory WBC 7.0 X10^3/uL (3.6-10.0) 01/04/21 18:40 RBC 4.56 X10^6/uL (3.5-5.4) 01/04/21 18:40 Hgb 13.1 g/dL (12.0-16.0) 01/04/21 18:40 Hct 39.9 % (36.0-47.0) 01/04/21 18:40 MCV 87.6 fL (80.0-100.0) 01/04/21 18:40 MCH 28.7 pg (27.0-34.0) 01/04/21 18:40 MCHC 32.8 g/dL (33.0-35.0) L 01/04/21 18:40 RDW 14.9 % (11.6-16.5) 01/04/21 18:40 Plt Count 420 X10^3/uL (150.0-450.0) 01/04/21 18:40 MPV 8.1 fL (7.4-11.0) 01/04/21 18:40 Neut % (Auto) 60.4 % (42.0-75.0) 01/04/21 18:40 Lymph % (Auto) 30.5 % (21.0-51.0) 01/04/21 18:40 [place] % (Auto) 6.5 % (0.0-13.0) 01/04/21 18:40 Eos % (Auto) 1.6 % (0.9-2.9) 01/04/21 18:40 Baso % (Auto) 1.0 % (0.2-1.0) 01/04/21 18:40 Neut # (Auto) 4.2 x10^3/uL (2.2-4.8) 01/04/21 18:40 Lymph # (Auto) 2.1 X10^3/uL (1.3-2.9) 01/04/21 18:40 [place] # (Auto) 0.5 x10^3/uL (0.3-0.8) 01/04/21 18:40 Eos # (Auto) 0.1 x10^3/uL (0.0-0.2) 01/04/21 18:40 Baso # (Auto) 0.1 X10^3/uL (0.0-0.1) 01/04/21 18:40 Absolute Nucleated RBC 0.1 /100WBC 01/04/21 18:40 PT 12.3 SECONDS (11.8-14.3) 01/04/21 18:40 INR Target Range - 01/04/21 18:40 INR 0.94 (0.8-1.3) 01/04/21 18:40 APTT 27.6 SECONDS (22.9-36.5) 01/04/21 18:40 PTT Comment - 01/04/21 18:40 Sodium 141 mmol/L (136-145) 01/04/21 18:40 Corrected Sodium TNP 01/04/21 18:40 Potassium 3.8 mmol/L (3.5-5.1) 01/04/21 18:40 Chloride 104 mmol/L (98-107) 01/04/21 18:40 Carbon Dioxide 28.7 mmol/L (21-32) 01/04/21 18:40 BUN 23 mg/dL (7-18) H 01/04/21 18:40 Creatinine 0.86 mg/dL (0.55-1.02) 01/04/21 18:40 Est GFR (MDRD) Af Amer > 60 (>60) 01/04/21 18:40 Est GFR (MDRD) Non-Af > 60 (>60) 01/04/21 18:40 Glucose 101 mg/dL (65-99) H 01/04/21 18:40 Calcium 9.9 mg/dL (8.5-10.1) 01/04/21 18:40 Corrected Calcium TNP 01/04/21 18:40 Magnesium 1.9 mg/dL (1.7-2.9) 01/04/21 18:40 Total Bilirubin 0.60 mg/dL (0.2-1.0) 01/04/21 18:40 AST 38 Units/L (15-37) H 01/04/21 18:40 ALT 69 Units/L (12-78) 01/04/21 18:40 Alkaline Phosphatase 153 Units/L (46-116) H 01/04/21 18:40 Creatine Kinase 75 Units/L (26-192) 01/04/21 18:40 CK-MB (CK-2) 1.2 ng/mL (0-4.0) 01/04/21 18:40 CK/CKMB % Calc 1.6 % (<4) 01/04/21 18:40 Troponin I < 0.02 ng/mL (0-1.5) 01/04/21 18:40 Total Protein 7.9 g/dL (6.4-8.2) 01/04/21 18:40 Albumin 4.0 g/dL (3.4-5.0) 01/04/21 18:40 Globulin 3.9 g/dL (2.5-4.5) 01/04/21 18:40 Albumin/Globulin Ratio 1.0 Ratio (1.1-2.1) L 01/04/21 18:40 SARS CoV-2 RNA Rapid HUBERT Negative (NEGATIVE) 01/04/21 21:40 Review of Systems Constitutional: Weakness; denies Fever and Chills Eyes: No Symptoms Reported ENT: No Symptoms Reported Respiratory: Cough, Shortness of Breath and Wheezing Cardiovascular: No Symptoms Reported Gastrointestinal: No Symptoms Reported Genitourinary: No Symptoms Reported Musculoskeletal: No Symptoms Reported Skin: No Symptoms Reported Neurological: No Symptoms Reported Physical Exam Vital Signs: Temperature 98.0 F Pulse Rate [Left Radial] 93 Pulse Rate 118 Respiratory Rate 20 Blood Pressure [Left Calf] 179/86 Blood Pressure [Left Arm] 146/79 Blood Pressure 203/95 O2 Sat by Pulse Oximetry 96 Oriented: Normal Eyes: Normal Ear: Normal Nose: Normal Throat: Normal Respiratory: Diminished Throughout, RLL Exp. Wheeze and LLL Exp. Wheeze Cardiovascular: Normal : Normal Auscultation: Bowel Sounds: Normal Palpation: Normal Tenderness: Normal Skin: Normal Musculoskeletal: Normal Psychiatric: Normal Mood Description: Calm and Appropriate Affect: Normal Speech Pattern: Clear and Appropriate Assessment/Plan (1) COPD exacerbation: Status: Acute Plan: Supplemntal O2, Bronchodilators, and IV Solumedrol Continue to monitor. Review H&P Reviewed: Yes Patient was examined?: Yes
[2021-01-05] MEDS: LOPRESSOR TAB 50 MG PO SCH ×2 (15:09→20:08)
[2021-01-05] MEDS ORDERED: MAGNESIUM SULFATE 1 GRAM/100 mL PREMIX 1 GM/100 ML BAG IV PRN (19:26)
[2021-01-05] MEDS ORDERED: POTASSIUM CHL 60 MEQ/NS 0.45% 500 ML IV PRN (19:26)
[2021-01-05] MEDS ORDERED: POTASSIUM CHLORIDE LIQ 20 MEQ UDC PO PRN (19:26)
[2021-01-05] MEDS ORDERED: POTASSIUM CHL 40 MEQ/NS 0.45% 500 ML IV PRN (19:26)
[2021-01-05] MEDS ORDERED: K-RIDER 10 MEQ/NS 100 ML 10 MEQ/100 ML BAG IV PRN (19:26)
[2021-01-05] MEDS ORDERED: KLOR-CON PO PRN (19:26)
[2021-01-05] MEDS ORDERED: K-DUR TAB 20 MEQ PO PRN (19:26)
[2021-01-05] MEDS ORDERED: MICRO K EXTEN CAP 10 MEQ PO PRN (19:26)
[2021-01-05] MEDS ORDERED: CRESTOR TAB 10 MG PO ONE (19:49)
[2021-01-05] MEDS ORDERED: NORVASC TAB 10 MG ONE (19:50)
[2021-01-05] MEDS: CRESTOR TAB 10 MG PO SCH (20:08)
[2021-01-05] MEDS: NORVASC TAB 10 MG PO SCH (20:08)
[2021-01-06] MEDS: DUONEB 0.5 MG/3 MG (3 mL) NEB SCH ×6 (00:07→20:09)
[2021-01-06] MEDS: SOLU-Medrol 40 MG VIAL IVP SCH ×3 (00:36→17:32)
[2021-01-06 06:13] LABS: BASOPHILS % (AUTO) 0.3 % (0.2-1.0); HEMATOCRIT 36.8 % (36.0-47.0); HEMOGLOBIN 12.1 g/dL (12.0-16.0); LYMPHOCYTES % (AUTO) 5.5 % (21.0-51.0); MEAN CORPUSCULAR HEMOGLOBIN 28.9 pg (27.0-34.0); MEAN CORPUSCULAR HGB CONC 32.9 g/dL (33.0-35.0); MEAN CORPUSCULAR VOLUME 87.8 fL (80.0-100.0); MEAN PLATELET VOLUME 8.6 fL (7.4-11.0); MONOCYTES # (AUTO) 0.3 x10^3/uL (0.3-0.8); MONOCYTES % (AUTO) 1.6 % (0.0-13.0); NEUTROPHILS # (AUTO) 16.2 x10^3/uL (2.2-4.8); NEUTROPHILS % (AUTO) 92.6 % (42.0-75.0); PLATELET COUNT 379 X10^3/uL (150.0-450.0); RED CELL DISTRIBUTION WIDTH 15.3 % (11.6-16.5); WHITE BLOOD COUNT 17.5 X10^3/uL (3.6-10.0)
[2021-01-06 06:26] LABS: ALANINE AMINOTRANSFERASE 114 Units/L (12-78); ALBUMIN 3.6 g/dL (3.4-5.0); ALKALINE PHOSPHATASE 133 Units/L (46-116); ASPARTATE AMINO TRANSFERASE 74 Units/L (15-37); BLOOD UREA NITROGEN 27 mg/dL (7-18); CALCIUM 9.3 mg/dL (8.5-10.1); CARBON DIOXIDE 27.1 mmol/L (21-32); CHLORIDE 107 mmol/L (98-107); COR NA(FOR HYPERGLY) 144 mmol/L (136-145); CREATININE 0.74 mg/dL (0.55-1.02); SODIUM 143 mmol/L (136-145); TOTAL PROTEIN 7.4 g/dL (6.4-8.2); eGFR NON BLACK RACES > 60 (>60)
[2021-01-06 06:47] LABS: BAND NEUTROPHILS % 1 % (0-10)
[2021-01-06 06:48] LABS: PLATELET MORPHOLOGY COMMENT NORMAL (NORMAL)
[2021-01-06] MEDS: BENICAR TAB 40 MG PO SCH (08:49)
[2021-01-06] MEDS: VSL#3 PO SCH (08:49)
[2021-01-06] MEDS: LOPRESSOR TAB 50 MG PO SCH ×2 (08:49→20:01)
[2021-01-06] MEDS: APRESOLINE TAB 25 MG PO SCH ×2 (08:49→20:00)
[2021-01-06] MEDS: PATIENT'S HOME MEDICATION PO SCH (08:52)
[2021-01-06] MEDS ORDERED: VITAMIN D (1.25MG) PO SCH (09:00)
[2021-01-06 09:11] LABS: ABG ALLEN TEST POS; ABG BASE EXCESS 2.2 mmol/L (-2.0-2.0); ABG HCO3 26.5 mmol/L (22-26)
[2021-01-06] MEDS ORDERED: ZOFRAN INJ 4 MG VIAL IVP PRN (09:15)
[2021-01-06] MEDS: MAALOX or MYLANTA PO PRN ×2 (10:15→20:00)
[2021-01-06] MEDS: NORCO 5/325 MG TAB PO PRN (20:00)
[2021-01-06] MEDS: NORVASC TAB 10 MG PO SCH (20:01)
[2021-01-06] MEDS: CRESTOR TAB 10 MG PO SCH (20:01)
[2021-01-07] MEDS: DUONEB 0.5 MG/3 MG (3 mL) NEB SCH ×3 (00:26→08:23)
[2021-01-07] MEDS: SOLU-Medrol 40 MG VIAL IVP SCH ×3 (01:36→16:50)
[2021-01-07 06:27] LABS: BASOPHILS % (AUTO) 0.2 % (0.2-1.0); HEMATOCRIT 35.9 % (36.0-47.0); HEMOGLOBIN 11.9 g/dL (12.0-16.0); LYMPHOCYTES # (AUTO) 0.9 X10^3/uL (1.3-2.9); LYMPHOCYTES % (AUTO) 6.3 % (21.0-51.0); MEAN CORPUSCULAR HGB CONC 33.1 g/dL (33.0-35.0); MEAN CORPUSCULAR VOLUME 87.5 fL (80.0-100.0); MEAN PLATELET VOLUME 8.8 fL (7.4-11.0); MONOCYTES # (AUTO) 0.3 x10^3/uL (0.3-0.8); NEUTROPHILS # (AUTO) 12.9 x10^3/uL (2.2-4.8); NEUTROPHILS % (AUTO) 91.5 % (42.0-75.0); PLATELET COUNT 371 X10^3/uL (150.0-450.0); RED CELL DISTRIBUTION WIDTH 15.2 % (11.6-16.5); WHITE BLOOD COUNT 14.2 X10^3/uL (3.6-10.0)
[2021-01-07 06:35] LABS: ALANINE AMINOTRANSFERASE 102 Units/L (12-78); ALBUMIN 3.4 g/dL (3.4-5.0); ALKALINE PHOSPHATASE 119 Units/L (46-116); ASPARTATE AMINO TRANSFERASE 55 Units/L (15-37); BLOOD UREA NITROGEN 27 mg/dL (7-18); CALCIUM 9.2 mg/dL (8.5-10.1); CARBON DIOXIDE 24.6 mmol/L (21-32); CHLORIDE 107 mmol/L (98-107); COR NA(FOR HYPERGLY) 140 mmol/L (136-145); CREATININE 0.69 mg/dL (0.55-1.02); SODIUM 139 mmol/L (136-145); eGFR NON BLACK RACES > 60 (>60)
[2021-01-07 07:21] LABS: PLATELET MORPHOLOGY COMMENT NORMAL (NORMAL)
[2021-01-07] MEDS ORDERED: REGLAN INJ 10 MG VIAL IVP ONE (09:04)
[2021-01-07 10:10] LABS: CKMB % 1.3 % (<4); CREATINE KINASE MB 1.1 ng/mL (0-4.0); TROPONIN I 0.04 ng/mL (0-1.5)
--- NOTE | 2021-01-07 10:17 | RAD ---
HISTORYNausea, vomitingSTUDYKUBCOMPARISONNoneFINDINGSThe abdominal gas pattern is nonspecific and nonobstructive. No abnormal masses or abnormal calcifications are identified. There is a vascular stent overlying the s acrum. Regional skeleton is intact.IMPRESSIONUnremarkable KUBElectronically signed by: SAMY ALLEN (Jan 07, 2021 10:15:09)
[2021-01-07] MEDS: PROTONIX INJ 40 MG VIAL IVP SCH ×2 (10:21→21:07)
[2021-01-07] MEDS: APRESOLINE TAB 25 MG PO SCH ×2 (10:21→21:06)
[2021-01-07] MEDS: VSL#3 PO SCH (10:22)
[2021-01-07] MEDS: BENICAR TAB 40 MG PO SCH (10:22)
[2021-01-07] MEDS: LASIX PO SCH (10:22)
[2021-01-07] MEDS: LOPRESSOR TAB 50 MG PO SCH ×2 (10:22→21:06)
[2021-01-07] MEDS: PATIENT'S HOME MEDICATION PO SCH (10:34)
[2021-01-07] MEDS: NORCO 5/325 MG TAB PO PRN (21:05)
[2021-01-07] MEDS: NORVASC TAB 10 MG PO SCH (21:08)
[2021-01-07] MEDS: CRESTOR TAB 10 MG PO SCH (21:08)
[2021-01-08] MEDS: SOLU-Medrol 40 MG VIAL IVP SCH ×3 (01:10→17:17)
[2021-01-08] MEDS: MAALOX or MYLANTA PO PRN (04:41)
[2021-01-08] MEDS: NORCO 5/325 MG TAB PO PRN ×2 (04:41→22:40)
[2021-01-08] MEDS: BENICAR TAB 40 MG PO SCH (08:49)
[2021-01-08] MEDS: PATIENT'S HOME MEDICATION PO SCH (08:49)
[2021-01-08] MEDS: VSL#3 PO SCH (08:50)
[2021-01-08] MEDS: PROTONIX INJ 40 MG VIAL IVP SCH ×2 (08:50→20:46)
[2021-01-08] MEDS: APRESOLINE TAB 25 MG PO SCH ×2 (08:56→20:47)
[2021-01-08] MEDS: LOPRESSOR TAB 50 MG PO SCH ×2 (08:57→20:47)
[2021-01-08 09:46] LABS: CKMB % 2.3 % (<4); CREATINE KINASE 43 Units/L (26-192); CREATINE KINASE MB < 1.0 ng/mL (0-4.0); TROPONIN I 0.03 ng/mL (0-1.5)
--- NOTE | 2021-01-08 09:56 | RAD ---
HISTORYSOB CHEST PAINSTUDYCHEST, 1 [id number].TECHNIQUEAP view of the chestFINDINGSLeft chest wall port in stable position.The cardiac and mediastinal contours appear stable. Blunted left costophrenic sulcus. No consolidation or segmental lung collapse. No discernible pneumothorax.IMPRESSIONBlunted left costophrenic sulcus may represent a small pleural effusion.Electronically signed by: Dalton Paul (Jan 08, 2021 09:52:39)
[2021-01-08] MEDS: DUONEB 0.5 MG/3 MG (3 mL) NEB SCH ×4 (14:50→20:30)
[2021-01-08] MEDS: NORVASC TAB 10 MG PO SCH (20:46)
[2021-01-08] MEDS: CRESTOR TAB 10 MG PO SCH (20:47)
[2021-01-09] MEDS: DUONEB 0.5 MG/3 MG (3 mL) NEB SCH ×6 (00:05→20:56)
[2021-01-09] MEDS: SOLU-Medrol 40 MG VIAL IVP SCH ×4 (00:10→20:27)
[2021-01-09] MEDS: LOPRESSOR TAB 50 MG PO SCH ×2 (09:02→20:26)
[2021-01-09] MEDS: PROTONIX INJ 40 MG VIAL IVP SCH ×2 (09:02→20:26)
[2021-01-09] MEDS: BENICAR TAB 40 MG PO SCH (09:02)
[2021-01-09] MEDS: APRESOLINE TAB 25 MG PO SCH ×2 (09:02→20:26)
[2021-01-09] MEDS: LASIX PO SCH (09:02)
[2021-01-09] MEDS: VSL#3 PO SCH (09:03)
[2021-01-09] MEDS: PATIENT'S HOME MEDICATION PO SCH (09:03)
[2021-01-09] MEDS: LOVENOX INJ 40 MG SYR SC SCH (09:12)
[2021-01-09] MEDS: NORCO 5/325 MG TAB PO PRN ×2 (09:13→20:27)
[2021-01-09 19:10] LABS: BASOPHILS % (AUTO) 0.3 % (0.2-1.0); EOSINOPHILS # (AUTO) 0.1 x10^3/uL (0.0-0.2); EOSINOPHILS % (AUTO) 0.5 % (0.9-2.9); HEMATOCRIT 42.4 % (36.0-47.0); HEMOGLOBIN 13.8 g/dL (12.0-16.0); LYMPHOCYTES # (AUTO) 1.1 X10^3/uL (1.3-2.9); LYMPHOCYTES % (AUTO) 9.8 % (21.0-51.0); MEAN CORPUSCULAR HEMOGLOBIN 28.9 pg (27.0-34.0); MEAN CORPUSCULAR HGB CONC 32.5 g/dL (33.0-35.0); MEAN PLATELET VOLUME 9.3 fL (7.4-11.0); MONOCYTES # (AUTO) 0.3 x10^3/uL (0.3-0.8); MONOCYTES % (AUTO) 2.5 % (0.0-13.0); NEUTROPHILS # (AUTO) 9.6 x10^3/uL (2.2-4.8); NEUTROPHILS % (AUTO) 86.9 % (42.0-75.0); PLATELET COUNT 438 X10^3/uL (150.0-450.0); RED BLOOD COUNT 4.76 X10^6/uL (3.5-5.4); RED CELL DISTRIBUTION WIDTH 15.4 % (11.6-16.5)
[2021-01-09 20:17] LABS: ALANINE AMINOTRANSFERASE 80 Units/L (12-78); ALBUMIN 3.4 g/dL (3.4-5.0); ALKALINE PHOSPHATASE 106 Units/L (46-116); ASPARTATE AMINO TRANSFERASE 20 Units/L (15-37); BLOOD UREA NITROGEN 25 mg/dL (7-18); CALCIUM 8.6 mg/dL (8.5-10.1); CARBON DIOXIDE 27.2 mmol/L (21-32); CHLORIDE 102 mmol/L (98-107); COR NA(FOR HYPERGLY) 143 mmol/L (136-145); CREATININE 0.81 mg/dL (0.55-1.02); SODIUM 139 mmol/L (136-145); eGFR NON BLACK RACES > 60 (>60)
[2021-01-09] MEDS: NORVASC TAB 10 MG PO SCH (20:26)
[2021-01-09] MEDS: CRESTOR TAB 10 MG PO SCH (20:28)
[2021-01-09] MEDS ORDERED: COLACE CAP 100 MG PO SCH (21:00)
[2021-01-10] MEDS: DUONEB 0.5 MG/3 MG (3 mL) NEB SCH ×3 (00:17→08:10)
[2021-01-10] MEDS: NORCO 5/325 MG TAB PO PRN (05:09)
[2021-01-10 06:09] LABS: BASOPHILS % (AUTO) 0.3 % (0.2-1.0); HEMATOCRIT 39.2 % (36.0-47.0); HEMOGLOBIN 12.8 g/dL (12.0-16.0); LYMPHOCYTES # (AUTO) 0.9 X10^3/uL (1.3-2.9); LYMPHOCYTES % (AUTO) 8.6 % (21.0-51.0); MEAN CORPUSCULAR HEMOGLOBIN 28.7 pg (27.0-34.0); MEAN CORPUSCULAR HGB CONC 32.6 g/dL (33.0-35.0); MEAN CORPUSCULAR VOLUME 88.1 fL (80.0-100.0); MEAN PLATELET VOLUME 9.2 fL (7.4-11.0); MONOCYTES # (AUTO) 0.6 x10^3/uL (0.3-0.8); MONOCYTES % (AUTO) 5.6 % (0.0-13.0); NEUTROPHILS # (AUTO) 8.9 x10^3/uL (2.2-4.8); NEUTROPHILS % (AUTO) 85.5 % (42.0-75.0); PLATELET COUNT 348 X10^3/uL (150.0-450.0); RED BLOOD COUNT 4.45 X10^6/uL (3.5-5.4); RED CELL DISTRIBUTION WIDTH 15.3 % (11.6-16.5); WHITE BLOOD COUNT 10.4 X10^3/uL (3.6-10.0)
[2021-01-10 06:18] LABS: ALANINE AMINOTRANSFERASE 78 Units/L (12-78); ALBUMIN 3.2 g/dL (3.4-5.0); ALKALINE PHOSPHATASE 101 Units/L (46-116); ASPARTATE AMINO TRANSFERASE 26 Units/L (15-37); BLOOD UREA NITROGEN 25 mg/dL (7-18); CALCIUM 8.7 mg/dL (8.5-10.1); CARBON DIOXIDE 27.1 mmol/L (21-32); CHLORIDE 107 mmol/L (98-107); COR CA(FOR HYPOALB) 9.3 mg/dL (8.5-10.1); COR NA(FOR HYPERGLY) 143 mmol/L (136-145); CREATININE 0.72 mg/dL (0.55-1.02); MAGNESIUM 2.5 mg/dL (1.7-2.9); SODIUM 142 mmol/L (136-145); TOTAL PROTEIN 6.7 g/dL (6.4-8.2); eGFR NON BLACK RACES > 60 (>60)
[2021-01-10 06:33] LABS: BAND NEUTROPHILS % 1 % (0-10); METAMYELOCYTES % 1; MYELOCYTES % 2; PLATELET MORPHOLOGY COMMENT NORMAL (NORMAL)
[2021-01-10] MEDS: LOPRESSOR TAB 50 MG PO SCH (08:57)
[2021-01-10] MEDS: APRESOLINE TAB 25 MG PO SCH (08:57)
[2021-01-10] MEDS: PROTONIX INJ 40 MG VIAL IVP SCH (08:58)
[2021-01-10] MEDS: BENICAR TAB 40 MG PO SCH (08:58)
[2021-01-10] MEDS: VSL#3 PO SCH (08:59)
[2021-01-10] MEDS: SOLU-Medrol 40 MG VIAL IVP SCH (08:59)
[2021-01-10] MEDS ORDERED: MILK OF MAGNESIA PO SCH (09:00)
[2021-01-10] MEDS: PATIENT'S HOME MEDICATION PO SCH (09:00)
[2021-01-10] MEDS: LOVENOX INJ 40 MG SYR SC SCH (11:48)
[2021-01-10 12:14] VITALS: BP 142/91
== END 2021-01-10 12:00 ==
LOC: OBS 16:39 → ER 16:39 → OBS 23:55 → MED/SURG 01-05 12:59
PROVIDERS: ADMIT Family Medicine; ATTEND Internal Medicine
DX: K44.9 Diaphragmatic hernia without obstruction or gangrene; R11.2 Nausea with vomiting, unspecified; R07.89 Other chest pain; Z20.822 Contact with and (suspected) exposure to COVID-19; K29.60 Other gastritis without bleeding; R06.02 Shortness of breath; R94.31 Abnormal electrocardiogram [ECG] [EKG]; I16.0 Hypertensive urgency; F43.10 Post-traumatic stress disorder, unspecified; K21.9 Gastro-esophageal reflux disease without esophagitis; M19.90 Unspecified osteoarthritis, unspecified site; I10 Essential (primary) hypertension; M51.36 Other intervertebral disc degeneration, lumbar region; Z90.11 Acquired absence of right breast and nipple; R26.89 Other abnormalities of gait and mobility; I25.10 Atherosclerotic heart disease of native coronary artery without angina pectoris; R13.11 Dysphagia, oral phase; Z91.81 History of falling; J20.9 Acute bronchitis, unspecified; J44.0 Chronic obstructive pulmonary disease with (acute) lower respiratory infection; J44.1 Chronic obstructive pulmonary disease with (acute) exacerbation; R62.7 Adult failure to thrive

== ENCOUNTER 2022-06-25 21:39 | Observation (INO) ==
--- NOTE | 2022-06-25 21:56 | DR.CP ---
HPI Time Seen Time Seen by Provider: 06/25/22 21:56 HPI Comment HPI Comment: Sudden onset substernal cp about thirty minutes ago which has persisted; now actively throwing up; no cough, fever, chills, abd pain; reportedly scheduled for stent tomorrow per Dr Clements in [place]. PMH PMH Past Medical History: Asthma, Dyslipidemia, GERD and Hypertension Past Surgical History: Yes Surgical History: Cholecystectomy, Hysterectomy, Mastectomy and Ortho Surgery Family History Family Medical History: Diabetes Mellitus and Hypertension Social History Do you use any recreational Drugs:: No ROS Review of Systems Constitutional: No Symptoms Reported Eyes: No Symptoms Reported ENTM: No Symptoms Reported Respiratoy: No Symptoms Reported Cardiovascular: See HPI Gastrointestinal/Abdominal: No Symptoms Reported Genitourinary: No Symptoms Reported Neurological: No Symptoms Reported Musculoskeletal: No Symptoms Reported Integumentary: No Symptoms Reported Hematologic/Lymphatic: No Symptoms Reported Endocrine: No Symptoms Reported Psychiatric: No Symptoms Reported PE Vitals Vitals: Temperature 98.0 F Pulse Rate 103 Respiratory Rate 24 Blood Pressure [Left Calf] 179/86 Blood Pressure [Left Arm] 154/90 Blood Pressure 132/62 O2 Sat by Pulse Oximetry 94 General Limitations: No Limitations General Appearance: Alert and In No Apparent Distress Head Head Exam: Normal Inspection Eyes Eye exam: Normal Appearance ENT ENT Exam: Normal Exam Chest Chest Inspection: Normal Inspection Respiratory Respiratory Exam: Normal Lung Sounds Bilat Cardiovascular Cardiovascular Exam: Regular Rate and Normal Rhythm Pulse: Normal Edema: Normal Abdominal Exam Abdominal Exam: Normal Inspection, Normal Bowel Sounds and Soft Extremities Extremities Exam: Normal Inspection Back Back Exam: Normal Inspection Neurologic Neurological Exam: Alert and Oriented X3 Psychiatric Psychiatric Exam: Normal Affect and Normal Mood Skin Skin Exam: Warm, Dry, Intact and Normal Color COURSE Reevaluation 1st: Unchanged (still w/nausea, vomiting and cp) 2nd: Improved (both nausea and cp improved) Consultation Call Returned: 23:40 (Dr Rankin accepts admission.) ROR Labs Reviewed Result Diagrams: 06/25/22 22:00 06/25/22 22:35 Laboratory: WBC 9.2 X10^3/uL (3.6-10.0) 06/25/22 22:00 RBC 4.16 X10^6/uL (3.5-5.4) 06/25/22 22:00 Hgb 12.2 g/dL (12.0-16.0) 06/25/22 22:00 Hct 36.0 % (36.0-47.0) 06/25/22 22:00 MCV 86.6 fL (80.0-100.0) 06/25/22 22:00 MCH 29.3 pg (27.0-34.0) 06/25/22 22:00 MCHC 33.9 g/dL (33.0-35.0) 06/25/22 22:00 RDW 15.0 % (11.6-16.5) 06/25/22 22:00 Plt Count 406 X10^3/uL (150.0-450.0) 06/25/22 22:00 MPV 8.1 fL (7.4-11.0) 06/25/22 22:00 Neut % (Auto) 60.2 % (42.0-75.0) 06/25/22 22:00 Lymph % (Auto) 29.0 % (21.0-51.0) 06/25/22 22:00 [place] % (Auto) 7.7 % (0.0-13.0) 06/25/22 22:00 Eos % (Auto) 1.7 % (0.9-2.9) 06/25/22 22:00 Baso % (Auto) 1.4 % (0.2-1.0) H 06/25/22 22:00 Neut # (Auto) 5.5 x10^3/uL (2.2-4.8) H 06/25/22 22:00 Lymph # (Auto) 2.7 X10^3/uL (1.3-2.9) 06/25/22 22:00 [place] # (Auto) 0.7 x10^3/uL (0.3-0.8) 06/25/22 22:00 Eos # (Auto) 0.2 x10^3/uL (0.0-0.2) 06/25/22 22:00 Baso # (Auto) 0.1 X10^3/uL (0.0-0.1) 06/25/22 22:00 Absolute Nucleated RBC 0.1 /100WBC 06/25/22 22:00 Sodium 139 mmol/L (136-145) 06/25/22 22:35 Corrected Sodium 139 mmol/L (136-145) 06/25/22 22:35 Potassium 4.0 mmol/L (3.5-5.1) 06/25/22 22:35 Chloride 102 mmol/L (98-107) 06/25/22 22:35 Carbon Dioxide 29.8 mmol/L (21-32) 06/25/22 22:35 BUN 25 mg/dL (7-18) H 06/25/22 22:35 Creatinine 0.82 mg/dL (0.55-1.02) 06/25/22 22:35 Est GFR (MDRD) Af Amer > 60 (>60) 06/25/22 22:35 Est GFR (MDRD) Non-Af > 60 (>60) 06/25/22 22:35 Glucose 120 mg/dL (65-99) H 06/25/22 22:35 Calcium 9.4 mg/dL (8.5-10.1) 06/25/22 22:35 Corrected Calcium TNP 06/25/22 22:35 Total Bilirubin 0.50 mg/dL (0.2-1.0) 06/25/22 22:35 AST 48 Units/L (15-37) H 06/25/22 22:35 ALT 71 Units/L (12-78) 06/25/22 22:35 Alkaline Phosphatase 176 Units/L (46-116) H 06/25/22 22:35 Creatine Kinase 51 Units/L (26-192) 06/25/22 22:35 Troponin I High Sens 5.7 ng/L (4.0-60.0) 06/25/22 22:35 Total Protein 7.8 g/dL (6.4-8.2) 06/25/22 22:35 Albumin 3.9 g/dL (3.4-5.0) 06/25/22 22:35 Globulin 3.9 g/dL (2.5-4.5) 06/25/22 22:35 Albumin/Globulin Ratio 1.0 Ratio (1.1-2.1) L 06/25/22 22:35 Other Results Comments: labs benign; symptoms are concerning for cardiac etiology; admit and r/o; of note, [place] reports appt with Dr Clements is next week. XRAY XRAY Interpreted by: Radiologist X-ray Results: pcxr: No focal infiltrate or effusion. Mild to moderate cardiomegaly. MediPort catheter tip overlying the proximal brachiocephalic, approximately 2 cm proximal to the expected location of the superior vena cava. Opioid Opioid Risk Tool Age (Sky box if 16-45): No History of Preadolescent Sexual Abuse: No Total: 0 Total Score Risk Category: Low Risk Copyright: [facility] predicting aberrant behaviors Discharge Plan Diagnosis Discharge Problem: Chest pain, Nausea & vomiting Discharge Plan Patient Disposition: ADMITTED INPATIENT Condition: Stable Prescriptions: No Action hydrocodone-acetaminophen 7.5-325 mg Tablet 1 tab PO TID PRN Rx Instructions: take my mouth twice a day as needed *DNF until 01/03* metoprolol succinate 100 mg Tablet Extended Release 24 Hr 100 mg PO BID olmesartan [Benicar] 40 mg Tablet 40 mg PO DAILY Qty: 30 0RF amlodipine 10 mg Tablet 10 mg PO QHS furosemide 40 mg tablet 40 mg PO DAILY atorvastatin 80 mg tablet 80 mg PO DAILY clopidogrel 75 mg tablet 75 mg PO DAILY spironolactone 50 mg tablet 50 mg PO DAILY dexlansoprazole [Dexilant] 60 mg capsule,biphase delayed releas 60 mg PO DAILY azelastine-fluticasone 137-50 mcg/spray spray,non-aerosol 1 spray intranasal BID potassium chloride 10 mEq capsule, extended release 1 cap PO QDAY hydralazine 100 mg Tablet 100 mg PO BID cyanocobalamin (vitamin B-12) [Cyanacobalamin] 1,000 mcg/mL Solution 1,000 mcg IM QMONTH Rx Instructions: GIVE ON THE OF EACH MONTH gabapentin 300 mg capsule 1 cap PO BID Hemocyte-Plus 106 mg iron- 1 mg Tablet 1 tab PO QDAY diclofenac sodium 1 % gel 1 ea TOPICAL QID Label Comments: [NO ORIGINAL SIG] tizanidine 2 mg tablet 1 tab PO BID PRN alendronate [Fosamax] 70 mg Tablet 70 mg PO QWEEK Rx Instructions: GIVE ON WEDNESDAY meclizine 25 mg Tablet 25 mg PO Q8H PRN cholecalciferol (vitamin D3) 25 mcg (1,000 unit) Tablet 25 mcg PO QDAY Ferrocite Plus 106 mg iron- 1 mg Capsule 1 cap PO QDAY Trelegy Ellipta 100-62.5-25 mcg Blister With Device 1 inh INHALATION QDAY dexlansoprazole [Dexilant] 60 mg Capsule,Biphase Delayed Releas 60 mg PO QDAY Health Concerns: Post Hospitalization: new medications and changes needed to prevent readmission or further decline. Pt educated and given instructions on all concerns. Plan of Treatment: Continue with present treatment and follow up plan. Pt is to keep follow up appointment as instructed and take medications as ordered. Orders to Discharge Patient Discharge Orders: Discharge (Routine); Ordered 06/25/22 Ordered By: Loren Kamara Follow ups/Referrals Follow ups/Referrals: CHELSIE RANKIN [Primary Care Provider] - 3 days Instructions Instructions: Vomiting, Adult Stand Alone Forms: [facility], Patient Portal, Social Distancing
[2022-06-25] MEDS ORDERED: ZOFRAN INJ 4 MG VIAL ONE (22:07)
[2022-06-25] MEDS ORDERED: NITRO-BID OINT 2% UD (E.R. USE ONLY) TD ONE (22:10)
[2022-06-25] MEDS ORDERED: ZOFRAN INJ 4 MG VIAL IVP ONE (22:10)
[2022-06-25 22:13] LABS: BASOPHILS # (AUTO) 0.1 X10^3/uL (0.0-0.1); BASOPHILS % (AUTO) 1.4 % (0.2-1.0); EOSINOPHILS # (AUTO) 0.2 x10^3/uL (0.0-0.2); EOSINOPHILS % (AUTO) 1.7 % (0.9-2.9); HEMOGLOBIN 12.2 g/dL (12.0-16.0); LYMPHOCYTES # (AUTO) 2.7 X10^3/uL (1.3-2.9); MEAN CORPUSCULAR HEMOGLOBIN 29.3 pg (27.0-34.0); MEAN CORPUSCULAR HGB CONC 33.9 g/dL (33.0-35.0); MEAN CORPUSCULAR VOLUME 86.6 fL (80.0-100.0); MEAN PLATELET VOLUME 8.1 fL (7.4-11.0); MONOCYTES # (AUTO) 0.7 x10^3/uL (0.3-0.8); MONOCYTES % (AUTO) 7.7 % (0.0-13.0); NEUTROPHILS # (AUTO) 5.5 x10^3/uL (2.2-4.8); NEUTROPHILS % (AUTO) 60.2 % (42.0-75.0); RED BLOOD COUNT 4.16 X10^6/uL (3.5-5.4); WHITE BLOOD COUNT 9.2 X10^3/uL (3.6-10.0)
[2022-06-25] MEDS ORDERED: NITRO-BID OINT 2% UD (E.R. USE ONLY) ONE (22:17)
[2022-06-25] MEDS ORDERED: PHENERGAN INJ 25 MG IM ONE ×2 (22:46→22:56)
--- NOTE | 2022-06-25 22:47 | RAD ---
HISTORYCHEST PAINSTUDYCHEST, 1 VIEWCOMPARISONNone.TECHNIQUEA single frontal view of the chest was obtained.FINDINGSThere is a MediPort catheter overlying the left chest wall with its distal tip overlying theproximal brachiocephalic vein. There are multiple EKG leads and wires seen overlying the patient. There is mild to moderate cardiomegaly with left ventricular hypertrophy. There is no focal infiltrate. There is no effusion. There is no pneumothorax. The osseous structures are intact.IMPRESSIONNo focal infiltrate or effusion. Mild to moderate cardiomegaly. MediPort catheter tip overlying the proximal brachiocephalic, approximately 2 cm proximal to the expected location of the superior vena cava.Electronically signed by: Mely Dahl (Jun 25, 2022 22:45:56)
[2022-06-25 22:56] LABS: ALANINE AMINOTRANSFERASE 71 Units/L (12-78); ALBUMIN 3.9 g/dL (3.4-5.0); ALKALINE PHOSPHATASE 176 Units/L (46-116); ASPARTATE AMINO TRANSFERASE 48 Units/L (15-37); BLOOD UREA NITROGEN 25 mg/dL (7-18); CALCIUM 9.4 mg/dL (8.5-10.1); CARBON DIOXIDE 29.8 mmol/L (21-32); CHLORIDE 102 mmol/L (98-107); COR NA(FOR HYPERGLY) 139 mmol/L (136-145); CREATINE KINASE 51 Units/L (26-192); CREATININE 0.82 mg/dL (0.55-1.02); SODIUM 139 mmol/L (136-145); TOTAL PROTEIN 7.8 g/dL (6.4-8.2); eGFR NON BLACK RACES > 60 (>60)
[2022-06-25] MEDS ORDERED: ZOFRAN INJ 4 MG VIAL IVP PRN (23:48)
[2022-06-25] MEDS ORDERED: NORCO 7.5/325 MG TAB PO PRN (23:48)
[2022-06-25] MEDS ORDERED: PHENERGAN INJ 25 MG IM PRN (23:48)
[2022-06-26 00:05] LABS: BILIRUBIN,URINE NEGATIVE (NEGATIVE); BLOOD/HEMOGLOBIN,URINE NEGATIVE (NEGATIVE); GLUCOSE, URINE NEGATIVE (NEGATIVE); KETONES,URINE NEGATIVE (NEGATIVE); LEUKOCYTE ESTERASE ,URINE 3+ (NEGATIVE); NITRITES,URINE NEGATIVE (NEGATIVE); PROTEIN,URINE NEGATIVE (NEGATIVE); UROBILINOGEN,URINE NORMAL (NORMAL)
[2022-06-26 00:11] LABS: APPEARANCE,URINE CLEAR (CLEAR); COLOR,URINE PALE YELLOW (YELLOW)
[2022-06-26 00:12] LABS: BACTERIA,URINE TRACE /HPF (NEGATIVE); RBC,URINE 0-2 /HPF (0-3); SQUAMOUS EPITHELIAL CELL,UR RARE /HPF (NEGATIVE)
[2022-06-26] MEDS: NS 1,000 ML IV 1,000 ML IV SCH ×3 (00:55→13:55)
[2022-06-26 02:10] VITALS: BMI 40.6
[2022-06-26] MEDS ORDERED: PHARMACY CONSULT LTC MEDICATIONS XX SCH (03:00)
[2022-06-26] MEDS: NITRO-BID OINT 2% Multi-Dose tube TD SCH ×3 (03:56→09:39)
[2022-06-26 05:21] LABS: BASOPHILS % (AUTO) 0.6 % (0.2-1.0); EOSINOPHILS # (AUTO) 0.1 x10^3/uL (0.0-0.2); EOSINOPHILS % (AUTO) 1.6 % (0.9-2.9); HEMATOCRIT 31.8 % (36.0-47.0); HEMOGLOBIN 10.9 g/dL (12.0-16.0); LYMPHOCYTES # (AUTO) 1.5 X10^3/uL (1.3-2.9); LYMPHOCYTES % (AUTO) 21.5 % (21.0-51.0); MEAN CORPUSCULAR HEMOGLOBIN 29.8 pg (27.0-34.0); MEAN CORPUSCULAR HGB CONC 34.4 g/dL (33.0-35.0); MEAN CORPUSCULAR VOLUME 86.8 fL (80.0-100.0); MEAN PLATELET VOLUME 8.1 fL (7.4-11.0); MONOCYTES # (AUTO) 0.6 x10^3/uL (0.3-0.8); MONOCYTES % (AUTO) 8.1 % (0.0-13.0); NEUTROPHILS # (AUTO) 4.9 x10^3/uL (2.2-4.8); NEUTROPHILS % (AUTO) 68.2 % (42.0-75.0); RED BLOOD COUNT 3.66 X10^6/uL (3.5-5.4); RED CELL DISTRIBUTION WIDTH 14.8 % (11.6-16.5); WHITE BLOOD COUNT 7.2 X10^3/uL (3.6-10.0)
[2022-06-26 05:35] LABS: ALANINE AMINOTRANSFERASE 65 Units/L (12-78); ALBUMIN 3.4 g/dL (3.4-5.0); ALKALINE PHOSPHATASE 149 Units/L (46-116); ASPARTATE AMINO TRANSFERASE 43 Units/L (15-37); BLOOD UREA NITROGEN 22 mg/dL (7-18); CARBON DIOXIDE 27.9 mmol/L (21-32); CHLORIDE 104 mmol/L (98-107); CREATININE 0.71 mg/dL (0.55-1.02); SODIUM 140 mmol/L (136-145); TOTAL PROTEIN 6.8 g/dL (6.4-8.2); eGFR NON BLACK RACES > 60 (>60)
[2022-06-26] MEDS ORDERED: PULMICORT NEB TX 0.5 MG NEB ONE (07:56)
[2022-06-26] MEDS ORDERED: PULMICORT NEB TX 0.5 MG NEB SCH (09:00)
[2022-06-26 12:18] VITALS: BP 155/87
== END 2022-06-26 14:00 | disposition short-term general hospital (02) ==
LOC: ICU 21:39 → ER 21:39 → ICU 06-26 00:24
PROVIDERS: ADMIT Internal Medicine; ATTEND Internal Medicine
DX: R94.31 Abnormal electrocardiogram [ECG] [EKG]; I25.10 Atherosclerotic heart disease of native coronary artery without angina pectoris; I10 Essential (primary) hypertension; R07.89 Other chest pain; J45.909 Unspecified asthma, uncomplicated; K21.9 Gastro-esophageal reflux disease without esophagitis; R26.89 Other abnormalities of gait and mobility; Z20.822 Contact with and (suspected) exposure to COVID-19; E78.2 Mixed hyperlipidemia; R11.2 Nausea with vomiting, unspecified; M19.90 Unspecified osteoarthritis, unspecified site

== ENCOUNTER 2022-12-29 13:45 | Observation (INO) ==
[2022-12-29] MEDS ORDERED: NS 500 ML IV 500 ML IV ONE ×2 (13:57→14:28)
--- NOTE | 2022-12-29 13:57 | DR.DIZZY ---
HPI Time seen Time Seen by Provider: 12/29/22 13:56 Complaint Chief Complaint Doctor Comments: 67 y/o female brought in via EMS for evaluation. Recently had R knee replacement on the . PT came out to her house to start therapy.. Pt ill past few days with nausea, vomiting and diarrhea. Pt was on the commode, started feeling funny, lightheaded. Proceeded to pass out. Pt was lowered to the floor by the therapist. No head injury, no fall. Feeling lightheaded. Denies fever, chest pain, shortness of breath. No abdominal pain. Nurses Notes Reviewed Nurses Notes Review: Yes Source History Provided: Patient and EMS Context Stroke Symptoms: None PMH PMH Past Medical History: Asthma, Dyslipidemia, GERD and Hypertension Past Surgical History: Yes Surgical History: Cholecystectomy, Hysterectomy, Mastectomy and Ortho Surgery Family History Family Medical History: Cancer, Coronary Artery Disease and Hypertension Social History Do you use any recreational Drugs:: No ROS Review of Systems Constitutional: Weakness Eyes: No Symptoms Reported ENTM: No Symptoms Reported Respiratoy: No Symptoms Reported Cardiovascular: No Symptoms Reported Gastrointestinal/Abdominal: See HPI Genitourinary: No Symptoms Reported Neurological: Dizziness Musculoskeletal: No Symptoms Reported Integumentary: No Symptoms Reported Psychiatric: No Symptoms Reported All Other Systems: Reviewed and Negative PE Vital Signs Vitals: Temperature 98.2 F Pulse Rate 72 Respiratory Rate 18 Blood Pressure [Left Calf] 179/86 Blood Pressure [Left Arm] 99/50 Blood Pressure 189/76 O2 Sat by Pulse Oximetry 96 General General Appearance: Alert and In No Apparent Distress Eyes Eye exam: PERRL and EOMI ENT ENT Exam: Normal Exam and Mucous Membranes Moist Neck Neck Exam: Normal Inspection Respiratory Respiratory Exam: Normal Lung Sounds Bilat; negative Accessory Muscle Use or Respiratory Distress Cardiovascular Cardiovascular Exam: Regular Rate, Normal Rhythm and Normal Heart Sounds Abdominal Exam Abdominal Exam: Normal Inspection, Normal Bowel Sounds and Soft; negative Tenderness Extremeties Extremities Exam: Other (R knee s/p surgery, LLE normal. ); negative Edema Neurologic Neurological Exam: Alert, Oriented X3 and CN II-XII Intact; negative Motor Sensory Deficit Skin Skin Exam: Warm and Dry COURSE Treatment Treatment: 67 y/o female with syncopal episode prior to arrival, has had few days of vomiting/diarrhea prior to this episode. Better now. W/u initiated. Given IV fluids. 1657 pt remains stable. Labs overall ok. + UTI on U/A, will add culture, treat with IV rocephin. Recommend observation admission in view of syncope, UTI and recent vomiting. Discussed with her attneding, Dr Rankin, accepts the admission. ROR Labs Reviewed Laboratory Results Reviewed?: Yes Result Diagrams: 12/29/22 14:14 12/29/22 14:14 Laboratory: WBC 10.8 X10^3/uL (3.6-10.0) H 12/29/22 14:14 RBC 3.77 X10^6/uL (3.5-5.4) 12/29/22 14:14 Hgb 11.1 g/dL (12.0-16.0) L 12/29/22 14:14 Hct 33.0 % (36.0-47.0) L 12/29/22 14:14 MCV 87.6 fL (80.0-100.0) 12/29/22 14:14 MCH 29.5 pg (27.0-34.0) 12/29/22 14:14 MCHC 33.7 g/dL (33.0-35.0) 12/29/22 14:14 RDW 15.3 % (11.6-16.5) 12/29/22 14:14 Plt Count 341 X10^3/uL (150.0-450.0) 12/29/22 14:14 MPV 8.3 fL (7.4-11.0) 12/29/22 14:14 Neut % (Auto) 73.5 % (42.0-75.0) 12/29/22 14:14 Lymph % (Auto) 17.3 % (21.0-51.0) L 12/29/22 14:14 [place] % (Auto) 7.1 % (0.0-13.0) 12/29/22 14:14 Eos % (Auto) 1.0 % (0.9-2.9) 12/29/22 14:14 Baso % (Auto) 1.1 % (0.2-1.0) H 12/29/22 14:14 Neut # (Auto) 7.9 x10^3/uL (2.2-4.8) H 12/29/22 14:14 Lymph # (Auto) 1.9 X10^3/uL (1.3-2.9) 12/29/22 14:14 [place] # (Auto) 0.8 x10^3/uL (0.3-0.8) 12/29/22 14:14 Eos # (Auto) 0.1 x10^3/uL (0.0-0.2) 12/29/22 14:14 Baso # (Auto) 0.1 X10^3/uL (0.0-0.1) 12/29/22 14:14 Absolute Nucleated RBC 0.0 /100WBC 12/29/22 14:14 Sodium 142 mmol/L (136-145) 12/29/22 14:14 Corrected Sodium TNP 12/29/22 14:14 Potassium 3.6 mmol/L (3.5-5.1) 12/29/22 14:14 Chloride 105 mmol/L (98-107) 12/29/22 14:14 Carbon Dioxide 30.1 mmol/L (21-32) 12/29/22 14:14 BUN 17 mg/dL (7-18) 12/29/22 14:14 Creatinine 0.49 mg/dL (0.55-1.02) L 12/29/22 14:14 Est GFR (MDRD) Af Amer > 60 (>60) 12/29/22 14:14 Est GFR (MDRD) Non-Af > 60 (>60) 12/29/22 14:14 Glucose 94 mg/dL (65-99) 12/29/22 14:14 Calcium 8.0 mg/dL (8.5-10.1) L 12/29/22 14:14 Corrected Calcium 9.2 mg/dL (8.5-10.1) 12/29/22 14:14 Total Bilirubin 1.10 mg/dL (0.2-1.0) H 12/29/22 14:14 AST 22 Units/L (15-37) 12/29/22 14:14 ALT 61 Units/L (12-78) 12/29/22 14:14 Alkaline Phosphatase 145 Units/L (46-116) H 12/29/22 14:14 Troponin I High Sens 4.6 ng/L (4.0-60.0) 12/29/22 14:14 Total Protein 5.9 g/dL (6.4-8.2) L 12/29/22 14:14 Albumin 2.5 g/dL (3.4-5.0) L 12/29/22 14:14 Globulin 3.4 g/dL (2.5-4.5) 12/29/22 14:14 Albumin/Globulin Ratio 0.7 Ratio (1.1-2.1) L 12/29/22 14:14 Specimen Type Random urine 12/29/22 14:50 Urine Color Yellow (YELLOW) 12/29/22 14:50 Urine Appearance Hazy (CLEAR) 12/29/22 14:50 Urine pH 6.5 (5.0 - 8.0) 12/29/22 14:50 Ur Specific [place] 1.010 (1.000-1.030) 12/29/22 14:50 Urine Protein 1+ (NEGATIVE) 12/29/22 14:50 Urine Glucose (UA) Negative (NEGATIVE) 12/29/22 14:50 Urine Ketones Negative (NEGATIVE) 12/29/22 14:50 Urine Blood 1+ (NEGATIVE) 12/29/22 14:50 Urine Nitrite Positive (NEGATIVE) 12/29/22 14:50 Urine Bilirubin Negative (NEGATIVE) 12/29/22 14:50 Urine Urobilinogen Normal (NORMAL) 12/29/22 14:50 Ur Leukocyte Esterase 3+ (NEGATIVE) 12/29/22 14:50 Urine RBC 0-2 /HPF (0-3) 12/29/22 14:50 Urine WBC 10-20 /HPF (0-5) A 12/29/22 14:50 Ur Squamous Epith Cells Moderate /HPF (NEGATIVE) 12/29/22 14:50 Urine Bacteria 3+ /HPF (NEGATIVE) 12/29/22 14:50 Ur Culture Indicated? No/not indicated 12/29/22 14:50 EKG Rate: 75 [place]: Normal Rhythm: NSR Block: RBBB (incomplete) ST: Normal Opioid Opioid Risk Tool Age (Sky box if 16-45): No History of Preadolescent Sexual Abuse: No Total: 0 Total Score Risk Category: Low Risk Copyright: [facility] predicting aberrant behaviors Discharge Plan Diagnosis Discharge Problem: Syncope, Acute UTI Discharge Plan Patient Disposition: 09 ADMITTED INPATIENT Condition: Stable
--- NOTE | 2022-12-29 14:11 | EKG ---
Test Reason : syncope Blood Pressure : */* mmHG Vent. Rate : 75 BPM Atrial Rate : 75 BPM P-R Int : 130 ms QRS Dur : 112 ms QT Int : 396 ms P-R-T Axes : 31 -10 47 degrees QTc Int : 442 ms Normal sinus rhythm Incomplete right bundle branch block Moderate voltage criteria for LVH, may be normal variant ( R in aVL , [place] product ) Borderline ECG No previous ECGs available Confirmed by Mt Samano ([id number]) on 12/31/2022 8:16:31 AM Referred By: Confirmed By: Mt Samano
[2022-12-29 14:22] LABS: BASOPHILS # (AUTO) 0.1 X10^3/uL (0.0-0.1); HEMOGLOBIN 11.1 g/dL (12.0-16.0)
[2022-12-29 14:27] LABS: BASOPHILS % (AUTO) 1.1 % (0.2-1.0); EOSINOPHILS # (AUTO) 0.1 x10^3/uL (0.0-0.2); LYMPHOCYTES # (AUTO) 1.9 X10^3/uL (1.3-2.9); LYMPHOCYTES % (AUTO) 17.3 % (21.0-51.0); MEAN CORPUSCULAR HEMOGLOBIN 29.5 pg (27.0-34.0); MEAN CORPUSCULAR HGB CONC 33.7 g/dL (33.0-35.0); MEAN CORPUSCULAR VOLUME 87.6 fL (80.0-100.0); MEAN PLATELET VOLUME 8.3 fL (7.4-11.0); MONOCYTES # (AUTO) 0.8 x10^3/uL (0.3-0.8); MONOCYTES % (AUTO) 7.1 % (0.0-13.0); NEUTROPHILS # (AUTO) 7.9 x10^3/uL (2.2-4.8); NEUTROPHILS % (AUTO) 73.5 % (42.0-75.0); RED BLOOD COUNT 3.77 X10^6/uL (3.5-5.4); RED CELL DISTRIBUTION WIDTH 15.3 % (11.6-16.5); WHITE BLOOD COUNT 10.8 X10^3/uL (3.6-10.0)
[2022-12-29 14:39] LABS: ALANINE AMINOTRANSFERASE 61 Units/L (12-78); ALBUMIN 2.5 g/dL (3.4-5.0); ALKALINE PHOSPHATASE 145 Units/L (46-116); ASPARTATE AMINO TRANSFERASE 22 Units/L (15-37); BLOOD UREA NITROGEN 17 mg/dL (7-18); CARBON DIOXIDE 30.1 mmol/L (21-32); CHLORIDE 105 mmol/L (98-107); COR CA(FOR HYPOALB) 9.2 mg/dL (8.5-10.1); CREATININE 0.49 mg/dL (0.55-1.02); SODIUM 142 mmol/L (136-145); TOTAL PROTEIN 5.9 g/dL (6.4-8.2); eGFR NON BLACK RACES > 60 (>60)
[2022-12-29 14:56] LABS: BILIRUBIN,URINE NEGATIVE (NEGATIVE); BLOOD/HEMOGLOBIN,URINE 1+ (NEGATIVE); GLUCOSE, URINE NEGATIVE (NEGATIVE); KETONES,URINE NEGATIVE (NEGATIVE); LEUKOCYTE ESTERASE ,URINE 3+ (NEGATIVE); NITRITES,URINE POSITIVE (NEGATIVE); PH,URINE 6.5 (5.0 - 8.0); PROTEIN,URINE 1+ (NEGATIVE); UROBILINOGEN,URINE NORMAL (NORMAL)
[2022-12-29 15:05] LABS: APPEARANCE,URINE HAZY (CLEAR); COLOR,URINE YELLOW (YELLOW)
[2022-12-29 15:06] LABS: BACTERIA,URINE 3+ /HPF (NEGATIVE); RBC,URINE 0-2 /HPF (0-3); SQUAMOUS EPITHELIAL CELL,UR MODERATE /HPF (NEGATIVE)
[2022-12-29] MEDS ORDERED: ROCEPHIN VIAL 1 GRAM 1 G in NS 100 ML IV 100 ML IV ONE (15:47)
[2022-12-29] MEDS ORDERED: ROCEPHIN VIAL 1 GRAM ONE (16:01)
[2022-12-29] MEDS ORDERED: NS 100 ML IV 100 ML ONE (16:01)
[2022-12-29] MEDS: ROCEPHIN VIAL 1 GRAM 1 G in NS 100 ML IV 100 ML IV SCH (18:37)
[2022-12-29] MEDS: NS 1,000 ML IV 1,000 ML IV SCH (18:37)
[2022-12-29] MEDS: ZANAFLEX PO SCH (20:40)
[2022-12-29] MEDS: APRESOLINE TAB 25 MG PO SCH (20:40)
[2022-12-29] MEDS: LOPRESSOR TAB 50 MG PO SCH (20:40)
[2022-12-29] MEDS: PROVENTIL NEB TX 0.083% 2.5MG/ 3ML NEB SCH (21:07)
[2022-12-29] MEDS: PULMICORT NEB TX 0.5 MG NEB SCH (21:07)
[2022-12-29] MEDS: NORCO 10/325 TAB PO PRN (21:23)
--- NOTE | 2022-12-30 02:46 | EKG ---
Test Reason : Chest Pain Blood Pressure : */* mmHG Vent. Rate : 71 BPM Atrial Rate : 71 BPM P-R Int : 128 ms QRS Dur : 104 ms QT Int : 420 ms P-R-T Axes : 24 -11 13 degrees QTc Int : 456 ms Normal sinus rhythm Incomplete right bundle branch block Minimal voltage criteria for LVH, may be normal variant ( R in aVL ) Borderline ECG When compared with ECG of 29-DEC-2022 14:09, (Unconfirmed) ST elevation now present in Anterior leads Confirmed by Mt Samano ([id number]) on 12/31/2022 8:15:24 AM Referred By: Confirmed By: Mt Samano
[2022-12-30 03:35] LABS: BASOPHILS # (AUTO) 0.1 X10^3/uL (0.0-0.1); BASOPHILS % (AUTO) 0.6 % (0.2-1.0); EOSINOPHILS # (AUTO) 0.2 x10^3/uL (0.0-0.2); EOSINOPHILS % (AUTO) 1.3 % (0.9-2.9); HEMATOCRIT 32.5 % (36.0-47.0); HEMOGLOBIN 10.8 g/dL (12.0-16.0); LYMPHOCYTES # (AUTO) 2.2 X10^3/uL (1.3-2.9); LYMPHOCYTES % (AUTO) 19.1 % (21.0-51.0); MEAN CORPUSCULAR HEMOGLOBIN 29.2 pg (27.0-34.0); MEAN CORPUSCULAR HGB CONC 33.3 g/dL (33.0-35.0); MEAN CORPUSCULAR VOLUME 87.6 fL (80.0-100.0); MEAN PLATELET VOLUME 8.6 fL (7.4-11.0); MONOCYTES # (AUTO) 0.8 x10^3/uL (0.3-0.8); NEUTROPHILS # (AUTO) 8.3 x10^3/uL (2.2-4.8); RED CELL DISTRIBUTION WIDTH 15.7 % (11.6-16.5); WHITE BLOOD COUNT 11.5 X10^3/uL (3.6-10.0)
[2022-12-30 03:44] LABS: ALANINE AMINOTRANSFERASE 53 Units/L (12-78); ALBUMIN 2.6 g/dL (3.4-5.0); ALKALINE PHOSPHATASE 135 Units/L (46-116); ASPARTATE AMINO TRANSFERASE 22 Units/L (15-37); BLOOD UREA NITROGEN 23 mg/dL (7-18); CALCIUM 8.2 mg/dL (8.5-10.1); CARBON DIOXIDE 29.8 mmol/L (21-32); CHLORIDE 103 mmol/L (98-107); COR CA(FOR HYPOALB) 9.3 mg/dL (8.5-10.1); COR NA(FOR HYPERGLY) 142 mmol/L (136-145); CREATININE 0.74 mg/dL (0.55-1.02); SODIUM 141 mmol/L (136-145); eGFR NON BLACK RACES > 60 (>60)
[2022-12-30] MEDS: NS 1,000 ML IV 1,000 ML IV SCH ×3 (05:13→20:22)
[2022-12-30] MEDS: NORCO 10/325 TAB PO PRN ×3 (07:57→23:18)
[2022-12-30] MEDS: APRESOLINE TAB 25 MG PO SCH ×2 (08:04→23:18)
[2022-12-30] MEDS: PROTONIX TAB 40 MG PO SCH (08:04)
[2022-12-30] MEDS: LIPITOR TAB 80 MG PO SCH (08:04)
[2022-12-30] MEDS: PLAVIX PO SCH (08:05)
[2022-12-30] MEDS: LOPRESSOR TAB 50 MG PO SCH ×2 (08:05→23:18)
[2022-12-30] MEDS: ROCEPHIN VIAL 1 GRAM 1 G in NS 100 ML IV 100 ML IV SCH (08:05)
[2022-12-30] MEDS: ASPIRIN 81 MG CHEWTAB PO SCH (08:05)
[2022-12-30] MEDS: NORVASC TAB 10 MG PO SCH (08:05)
[2022-12-30] MEDS: PROVENTIL NEB TX 0.083% 2.5MG/ 3ML NEB SCH ×2 (08:45→21:27)
[2022-12-30] MEDS: PULMICORT NEB TX 0.5 MG NEB SCH ×2 (08:45→21:27)
--- NOTE | 2022-12-30 08:46 | EKG ---
Test Reason : Chest Pain Blood Pressure : */* mmHG Vent. Rate : 76 BPM Atrial Rate : 76 BPM P-R Int : 118 ms QRS Dur : 114 ms QT Int : 406 ms P-R-T Axes : 20 -4 27 degrees QTc Int : 456 ms Normal sinus rhythm Incomplete right bundle branch block Moderate voltage criteria for LVH, may be normal variant ( R in aVL , Scotty product ) Septal infarct , age undetermined T wave abnormality, consider anterior ischemia Abnormal ECG When compared with ECG of 30-DEC-2022 02:38, (Unconfirmed) Septal infarct is now present Inverted T waves have replaced nonspecific T wave abnormality in Anterior leads Confirmed by [facility] ([id number]) on 12/31/2022 8:14:47 AM Referred By: Confirmed By: [facility]
[2022-12-30] MEDS ORDERED: PATIENT'S HOME MEDICATION (Fluticasone-Umeclidin-Vilanter [Trelegy Ellipta] 100-62.5-25 mc IN SCH (09:00)
[2022-12-30] MEDS ORDERED: PATIENT'S HOME MEDICATION (Dexlansoprazole 60 mg capsule,biphase delayed releas) PO SCH (09:00)
[2022-12-30] MEDS: LOVENOX INJ 40 MG SYR SC SCH (10:32)
[2022-12-30 12:49] VITALS: BMI 41.8
--- NOTE | 2022-12-30 14:56 | EKG ---
Test Reason : chest pain Blood Pressure : */* mmHG Vent. Rate : 70 BPM Atrial Rate : 70 BPM P-R Int : 128 ms QRS Dur : 112 ms QT Int : 414 ms P-R-T Axes : 23 -3 -36 degrees QTc Int : 447 ms Normal sinus rhythm Moderate voltage criteria for LVH, may be normal variant ( R in aVL , [place] product ) Nonspecific ST and T wave abnormality Abnormal ECG When compared with ECG of 30-DEC-2022 08:39, (Unconfirmed) ICRBBB Criteria for Septal infarct are no longer present Nonspecific T wave abnormality has replaced inverted T waves in Anterior leads Confirmed by Mt Samano ([id number]) on 12/31/2022 8:14:11 AM Referred By: Confirmed By: Mt Samano
[2022-12-30] MEDS: ZANAFLEX PO SCH (20:23)
[2022-12-31 04:37] LABS: BASOPHILS # (AUTO) 0.1 X10^3/uL (0.0-0.1); BASOPHILS % (AUTO) 0.6 % (0.2-1.0); EOSINOPHILS # (AUTO) 0.2 x10^3/uL (0.0-0.2); EOSINOPHILS % (AUTO) 2.3 % (0.9-2.9); HEMATOCRIT 30.6 % (36.0-47.0); HEMOGLOBIN 10.3 g/dL (12.0-16.0); LYMPHOCYTES # (AUTO) 1.7 X10^3/uL (1.3-2.9); LYMPHOCYTES % (AUTO) 19.1 % (21.0-51.0); MEAN CORPUSCULAR HEMOGLOBIN 29.5 pg (27.0-34.0); MEAN CORPUSCULAR HGB CONC 33.7 g/dL (33.0-35.0); MEAN CORPUSCULAR VOLUME 87.8 fL (80.0-100.0); MEAN PLATELET VOLUME 8.3 fL (7.4-11.0); MONOCYTES # (AUTO) 0.7 x10^3/uL (0.3-0.8); MONOCYTES % (AUTO) 8.1 % (0.0-13.0); NEUTROPHILS # (AUTO) 6.1 x10^3/uL (2.2-4.8); NEUTROPHILS % (AUTO) 69.9 % (42.0-75.0); RED BLOOD COUNT 3.49 X10^6/uL (3.5-5.4); RED CELL DISTRIBUTION WIDTH 15.7 % (11.6-16.5); WHITE BLOOD COUNT 8.7 X10^3/uL (3.6-10.0)
[2022-12-31 04:46] LABS: ALANINE AMINOTRANSFERASE 50 Units/L (12-78); ALBUMIN 2.7 g/dL (3.4-5.0); ALKALINE PHOSPHATASE 136 Units/L (46-116); ASPARTATE AMINO TRANSFERASE 22 Units/L (15-37); BLOOD UREA NITROGEN 16 mg/dL (7-18); CALCIUM 8.1 mg/dL (8.5-10.1); CARBON DIOXIDE 25.6 mmol/L (21-32); CHLORIDE 107 mmol/L (98-107); COR CA(FOR HYPOALB) 9.1 mg/dL (8.5-10.1); COR NA(FOR HYPERGLY) 142 mmol/L (136-145); CREATININE 0.66 mg/dL (0.55-1.02); SODIUM 141 mmol/L (136-145); eGFR NON BLACK RACES > 60 (>60)
[2022-12-31] MEDS: NORCO 10/325 TAB PO PRN ×2 (08:03→21:12)
[2022-12-31] MEDS ORDERED: ZOFRAN INJ 4 MG VIAL IVP PRN (08:40)
[2022-12-31] MEDS: LOVENOX INJ 40 MG SYR SC SCH (08:53)
[2022-12-31] MEDS: PLAVIX PO SCH (08:54)
[2022-12-31] MEDS: VIBRAMYCIN PO SCH ×2 (08:54→21:13)
[2022-12-31] MEDS: NORVASC TAB 10 MG PO SCH (08:54)
[2022-12-31] MEDS: APRESOLINE TAB 25 MG PO SCH ×2 (08:54→21:13)
[2022-12-31] MEDS: PROTONIX TAB 40 MG PO SCH (08:55)
[2022-12-31] MEDS: ASPIRIN 81 MG CHEWTAB PO SCH (08:55)
[2022-12-31] MEDS: LOPRESSOR TAB 50 MG PO SCH ×2 (08:56→21:12)
[2022-12-31] MEDS: NS 1,000 ML IV 1,000 ML IV SCH ×3 (09:10→23:14)
[2022-12-31] MEDS: ROCEPHIN VIAL 1 GRAM 1 G in NS 100 ML IV 100 ML IV SCH (09:10)
[2022-12-31] MEDS: LIPITOR TAB 80 MG PO SCH ×2 (09:11→21:13)
[2022-12-31] MEDS: PROVENTIL NEB TX 0.083% 2.5MG/ 3ML NEB SCH ×2 (09:15→20:10)
[2022-12-31] MEDS: PULMICORT NEB TX 0.5 MG NEB SCH ×2 (09:15→20:10)
--- NOTE | 2022-12-31 21:05 | RAD ---
HISTORYCAD, COPDSTUDYCHEST, 1 VIEWCOMPARISONAugust 2021TECHNIQUEChest radiographic imaging, AP portable projection, 1 imageFINDINGSNo cardiomegaly.No focal airspace disease.No pleural effusion.No pneumothorax.No acute osseous abnormality.Right chest port in place.IMPRESSIONNo imaging findings of acute cardiopulmonary disease or significant changes.Electronically signed by: Macho Tierney (Dec 31, 2022 21:04:15)
[2022-12-31] MEDS: ZANAFLEX PO SCH (21:13)
[2023-01-01] MEDS: NORCO 10/325 TAB PO PRN ×2 (02:50→08:55)
[2023-01-01 06:28] LABS: BASOPHILS # (AUTO) 0.1 X10^3/uL (0.0-0.1); BASOPHILS % (AUTO) 0.7 % (0.2-1.0); EOSINOPHILS # (AUTO) 0.2 x10^3/uL (0.0-0.2); EOSINOPHILS % (AUTO) 1.8 % (0.9-2.9); HEMATOCRIT 28.7 % (36.0-47.0); HEMOGLOBIN 9.8 g/dL (12.0-16.0); LYMPHOCYTES # (AUTO) 1.4 X10^3/uL (1.3-2.9); LYMPHOCYTES % (AUTO) 14.3 % (21.0-51.0); MEAN CORPUSCULAR HEMOGLOBIN 30.1 pg (27.0-34.0); MEAN CORPUSCULAR HGB CONC 34.2 g/dL (33.0-35.0); MEAN CORPUSCULAR VOLUME 88.2 fL (80.0-100.0); MEAN PLATELET VOLUME 8.2 fL (7.4-11.0); MONOCYTES # (AUTO) 0.5 x10^3/uL (0.3-0.8); MONOCYTES % (AUTO) 5.3 % (0.0-13.0); NEUTROPHILS # (AUTO) 7.5 x10^3/uL (2.2-4.8); NEUTROPHILS % (AUTO) 77.9 % (42.0-75.0); RED BLOOD COUNT 3.25 X10^6/uL (3.5-5.4); RED CELL DISTRIBUTION WIDTH 15.8 % (11.6-16.5); WHITE BLOOD COUNT 9.6 X10^3/uL (3.6-10.0)
[2023-01-01 06:43] LABS: ALANINE AMINOTRANSFERASE 50 Units/L (12-78); ALBUMIN 2.6 g/dL (3.4-5.0); ALKALINE PHOSPHATASE 142 Units/L (46-116); ASPARTATE AMINO TRANSFERASE 31 Units/L (15-37); BLOOD UREA NITROGEN 13 mg/dL (7-18); CALCIUM 8.1 mg/dL (8.5-10.1); CARBON DIOXIDE 29.9 mmol/L (21-32); CHLORIDE 105 mmol/L (98-107); COR CA(FOR HYPOALB) 9.2 mg/dL (8.5-10.1); COR NA(FOR HYPERGLY) 140 mmol/L (136-145); CREATININE 0.68 mg/dL (0.55-1.02); SODIUM 140 mmol/L (136-145); TOTAL PROTEIN 6.1 g/dL (6.4-8.2); eGFR NON BLACK RACES > 60 (>60)
[2023-01-01] MEDS: PULMICORT NEB TX 0.5 MG NEB SCH (08:03)
[2023-01-01] MEDS: PROVENTIL NEB TX 0.083% 2.5MG/ 3ML NEB SCH (08:03)
[2023-01-01] MEDS: LOPRESSOR TAB 50 MG PO SCH (08:47)
[2023-01-01] MEDS: APRESOLINE TAB 25 MG PO SCH (08:47)
[2023-01-01] MEDS: LIPITOR TAB 80 MG PO SCH (08:47)
[2023-01-01] MEDS: VIBRAMYCIN PO SCH (08:48)
[2023-01-01] MEDS: ASPIRIN 81 MG CHEWTAB PO SCH (08:48)
[2023-01-01] MEDS: NORVASC TAB 10 MG PO SCH (08:48)
[2023-01-01] MEDS: PROTONIX TAB 40 MG PO SCH (08:48)
[2023-01-01] MEDS: PLAVIX PO SCH (08:48)
[2023-01-01] MEDS: ROCEPHIN VIAL 1 GRAM 1 G in NS 100 ML IV 100 ML IV SCH (08:48)
[2023-01-01] MEDS: LOVENOX INJ 40 MG SYR SC SCH (08:48)
[2023-01-01 10:35] VITALS: BP 163/80
== END 2023-01-01 12:00 | disposition home health service (06) ==
LOC: ICU 13:45 → ER 13:45 → ICU 18:04 → MED/SURG 12-31 14:43
PROVIDERS: ADMIT Internal Medicine; ATTEND Internal Medicine

== ENCOUNTER 2025-09-06 15:43 | Inpatient (IN) ==
--- NOTE | 2025-09-06 15:59 | EKG ---
Test Reason : chest pain Blood Pressure : */* mmHG Vent. Rate : 96 BPM Atrial Rate : 96 BPM P-R Int : 126 ms QRS Dur : 114 ms QT Int : 378 ms P-R-T Axes : 69 -21 69 degrees QTc Int : 477 ms Sinus rhythm with occasional premature ventricular complexes Incomplete right bundle branch block Moderate voltage criteria for LVH, may be normal variant ( R in aVL , [place] product ) Prolonged QT Abnormal ECG When compared with ECG of 07-FEB-2025 13:41, premature ventricular complexes are now present Confirmed by James Clifton MD ([id number]) on 09/06/2025 5:35:34 PM Referred By: Confirmed By: James Clifton MD
[2025-09-06 16:05] VITALS: BMI 43.6
[2025-09-06 16:12] LABS: MEAN PLATELET VOLUME 8.0 fL (7.4-11.0); RED CELL DISTRIBUTION WIDTH 15.5 % (11.6-16.5)
[2025-09-06 16:20] LABS: INR 0.98 (0.8-1.3)
[2025-09-06 16:28] LABS: COR NA(FOR HYPERGLY) 143 mmol/L (136-145); CREATININE 0.81 mg/dL (0.55-1.02); eGFR NON BLACK RACES > 60 (>60)
--- NOTE | 2025-09-06 16:31 | DR.CP ---
HPI Time Seen Time Seen by Provider: 09/06/25 15:51 PCP Primary Care Physician: Shell Complaint Chief Complaint Doctor Comments: Patient complains of chest pain since yesterday evening. Denies radiation. States patient has been on and off and sharp in nature. Patient does have extensive cardiovascular history with stents. Patient states she gets some exertional dyspnea chronically due to COPD and asthma. Denies shortness of breath at this time. Chief Complaint:: Patient complains of pain to midsternal area, SOB onset yesterday. Patient ambulatory into room 4 with exertional dyspnea. She states her pain comes and goes and describes as a stabbing pain. It increases with palpation of her chest COVID-19 Coronavirus risk:travel/contact w/high risk person: No Has patient experienced Coronavirus symptoms: No Source History Provided: Patient Mode of Arrival Mode of Arrival: Ambulatory Timing Onset of Chief Complaint: 09/05/25 Location Chest Pain Radiation Location: None Associated Signs and Symptoms Associated Signs and Symptoms: Shortness of Breath PMH PMH Past Medical History: Yes Past Medical History: Arthritis, Asthma, CHF, COPD, Coronary Artery Disease, CVA, Dyslipidemia, GERD, Hypertension and SC Past Surgical History: Yes Surgical History: Angioplasty/Stents, Cholecystectomy, Hysterectomy, Mastectomy, Ortho Surgery and Tonsillectomy Family History History of Family Medical Conditions: Yes Family Medical History: Diabetes Mellitus, Cancer, SC, Coronary Artery Disease, Heart Failure, Sudden Cardiac and Hypertension Social History Does patient currently use any type of tobacco product: No Have you used tobacco products in the last 12 months: No Type of Tobacco Use: None Does any household member use tobacco: No Alcohol Use: None Do you use any recreational Drugs:: No Lives With: Alone Lives Where: Home Travel Risk Coronavirus risk:travel/contact w/high risk person: No Has patient experienced Coronavirus symptoms: No Infectious screening In the last 2 months have you had wt loss of >10#?: NO Have you had fever, night sweats or hemotysis?: No Have you traveled outside the country in the last 6 months?: No Isolation: Standard ROS Review of Systems Constitutional: No Symptoms Reported; negative Fever Eyes: No Symptoms Reported ENTM: No Symptoms Reported Respiratoy: No Symptoms Reported; negative Short of Breath or Wheezing Cardiovascular: See HPI and Chest Pain; negative Edema, Palpitations, Syncope or Cyanosis Gastrointestinal/Abdominal: No Symptoms Reported Genitourinary: No Symptoms Reported Neurological: No Symptoms Reported Musculoskeletal: No Symptoms Reported Integumentary: No Symptoms Reported Hematologic/Lymphatic: No Symptoms Reported Endocrine: No Symptoms Reported Psychiatric: No Symptoms Reported All Other Systems: Reviewed and Negative PE Vitals Vitals: Vital Signs Temperature 98.2 F Pulse Rate 89 Pulse Rate 78 Pulse Rate 80 Pulse Rate 81 Pulse Rate 77 Pulse Rate 79 Pulse Rate 78 Pulse Rate 81 Pulse Rate 85 Pulse Rate 87 Pulse Rate 87 Pulse Rate 82 Pulse Rate 85 Pulse Rate 91 Pulse Rate 90 Pulse Rate 93 Pulse Rate 94 Pulse Rate 93 Pulse Rate 99 Respiratory Rate 25 Respiratory Rate 26 Respiratory Rate 25 Respiratory Rate 27 Respiratory Rate 26 Respiratory Rate 22 Respiratory Rate 21 Respiratory Rate 21 Respiratory Rate 28 Respiratory Rate 19 Respiratory Rate 24 Respiratory Rate 27 Respiratory Rate 17 Respiratory Rate 17 Respiratory Rate 9 Respiratory Rate 24 Blood Pressure 213/111 Blood Pressure 208/98 Blood Pressure 196/89 Blood Pressure 191/86 Blood Pressure 177/79 Blood Pressure 176/81 Blood Pressure 193/87 Blood Pressure 220/90 Blood Pressure 159/116 Blood Pressure 210/98 O2 Sat by Pulse Oximetry 99 O2 Sat by Pulse Oximetry 99 O2 Sat by Pulse Oximetry 99 O2 Sat by Pulse Oximetry 100 O2 Sat by Pulse Oximetry 100 O2 Sat by Pulse Oximetry 97 O2 Sat by Pulse Oximetry 99 O2 Sat by Pulse Oximetry 99 O2 Sat by Pulse Oximetry 99 O2 Sat by Pulse Oximetry 100 O2 Sat by Pulse Oximetry 99 O2 Sat by Pulse Oximetry 99 O2 Sat by Pulse Oximetry 100 O2 Sat by Pulse Oximetry 99 O2 Sat by Pulse Oximetry 99 O2 Sat by Pulse Oximetry 98 O2 Sat by Pulse Oximetry 98 O2 Sat by Pulse Oximetry 99 General Limitations: No Limitations General Appearance: Alert and In No Apparent Distress Head Head Exam: Normal Inspection Eyes Eye exam: Normal Appearance Chest Chest Inspection: Symmetric Chest Wall Rise and Tenderness (Reproducible chest pain on palpation.) Respiratory Respiratory Exam: Normal Lung Sounds Bilat Cardiovascular Cardiovascular Exam: Regular Rate and Normal Rhythm Pulse: Normal Edema: Normal Abdominal Exam Abdominal Exam: Normal Inspection, Normal Bowel Sounds and Soft; negative Distention, Tenderness, Guarding, Rebound, Rigidity, Organomegaly or Ascites Extremities Extremities Exam: Normal Inspection Back Back Exam: Normal Inspection Neurologic Neurological Exam: Alert and Oriented X3 Psychiatric Psychiatric Exam: Normal Affect and Normal Mood Skin Skin Exam: Warm, Dry, Intact and Normal Color COURSE Treatment Treatment: Discussed results of workup with patient. Patient has heart score of 6. Patient agreeable to admission Consultation Consultation Comments: Discussed case with Dr. Spence and he is agreeable to admission ROR Labs Reviewed Laboratory Results Reviewed?: Yes 09/06/25 16:03 09/06/25 16:03 Laboratory: WBC 7.9 X10^3/uL (3.6-10.0) 09/06/25 16:03 RBC 4.58 X10^6/uL (3.5-5.4) 09/06/25 16:03 Hgb 13.4 g/dL (12.0-16.0) 09/06/25 16:03 Hct 40.1 % (36.0-47.0) 09/06/25 16:03 MCV 87.7 fL (80.0-100.0) 09/06/25 16:03 MCH 29.3 pg (27.0-34.0) 09/06/25 16:03 MCHC 33.5 g/dL (33.0-35.0) 09/06/25 16:03 RDW 15.5 % (11.6-16.5) 09/06/25 16:03 Plt Count 301 X10^3/uL (150.0-450.0) 09/06/25 16:03 MPV 8.0 fL (7.4-11.0) 09/06/25 16:03 Neut % (Auto) 65.0 % (42.0-75.0) 09/06/25 16:03 Lymph % (Auto) 25.9 % (21.0-51.0) 09/06/25 16:03 [place] % (Auto) 7.5 % (0.0-13.0) 09/06/25 16:03 Eos % (Auto) 0.8 % (0.9-2.9) L 09/06/25 16:03 Baso % (Auto) 0.8 % (0.2-1.0) 09/06/25 16:03 Neut # (Auto) 5.1 x10^3/uL (2.2-4.8) H 09/06/25 16:03 Lymph # (Auto) 2.0 X10^3/uL (1.3-2.9) 09/06/25 16:03 [place] # (Auto) 0.6 x10^3/uL (0.3-0.8) 09/06/25 16:03 Eos # (Auto) 0.1 x10^3/uL (0.0-0.2) 09/06/25 16:03 Baso # (Auto) 0.1 X10^3/uL (0.0-0.1) 09/06/25 16:03 Absolute Nucleated RBC 0.0 /100WBC 09/06/25 16:03 PT 13.1 SECONDS (11.8-14.3) 09/06/25 16:03 INR Target Range - 09/06/25 16:03 INR 0.98 (0.8-1.3) 09/06/25 16:03 APTT 28.2 SECONDS (22.9-36.5) 09/06/25 16:03 PTT Comment - 09/06/25 16:03 Sodium 142 mmol/L (136-145) 09/06/25 16:03 Corrected Sodium 143 mmol/L (136-145) 09/06/25 16:03 Potassium 3.6 mmol/L (3.5-5.1) 09/06/25 16:03 Chloride 103 mmol/L (98-107) 09/06/25 16:03 Carbon Dioxide 31.8 mmol/L (21-32) 09/06/25 16:03 BUN 18 mg/dL (7-18) 09/06/25 16:03 Creatinine 0.81 mg/dL (0.55-1.02) 09/06/25 16:03 Est GFR (MDRD) Af Amer > 60 (>60) 09/06/25 16:03 Est GFR (MDRD) Non-Af > 60 (>60) 09/06/25 16:03 Glucose 133 mg/dL (65-99) H 09/06/25 16:03 Calcium 8.9 mg/dL (8.5-10.1) 09/06/25 16:03 Corrected Calcium TNP 09/06/25 16:03 Magnesium 1.7 mg/dL (2.0-2.9) L 09/06/25 16:03 Total Bilirubin 0.90 mg/dL (0.2-1.0) 09/06/25 16:03 AST 26 Units/L (15-37) 09/06/25 16:03 ALT 51 Units/L (12-78) 09/06/25 16:03 Alkaline Phosphatase 149 Units/L (46-116) H 09/06/25 16:03 Creatine Kinase 48 Units/L (26-192) 09/06/25 16:03 Troponin I High Sens 7.2 ng/L (4.0-60.0) 09/06/25 18:00 Total Protein 7.2 g/dL (6.4-8.2) 09/06/25 16:03 Albumin 3.5 g/dL (3.4-5.0) 09/06/25 16:03 Globulin 3.7 g/dL (2.5-4.5) 09/06/25 16:03 Albumin/Globulin Ratio 0.9 Ratio (1.1-2.1) L 09/06/25 16:03 XRAY X-ray Results: Name: MICHAEL PORTER : 1955 Sex: F Location: ER Order Number(s): [id number] Procedure(s):CHEST, 1 VIEW X-RAY Ordering Physician: Jean Croft Primary Care: NFD,None Service Date: 09/06/25 Service Time: 1551 EXAMINATION: CHEST, 1 VIEW HISTORY: Chest Pain; . COMPARISON STUDY: Chest x-ray 02/09/2025 TECHNIQUE: Single frontal view of the chest FINDINGS: Lungs are expanded. Streaky bibasilar opacities. Borderline cardiac silhouette enlargement. Normal pulmonary vascular pattern. Kanika catheter right chest with distal catheter along the SVC/right atrium. Partially imaged fusion hardware cervical spine. IMPRESSION: Bibasilar opacities. Soft tissue density/opacity in the left lateral pulmonary base. THIS IS AN ELECTRONICALLY VERIFIED FINAL REPORT 09/06/2025 6:15 PM - Electronically signed by Maira Early MD EKG Rate: 96 [place]: Normal Rhythm: NSR and PVCs Block: RBBB Hypertrophy: LVH ST: Normal Opioid Opioid Risk Tool Age (Sky box if 16-45): No History of Preadolescent Sexual Abuse: No Total: 0 Total Score Risk Category: Low Risk Copyright: [facility] predicting aberrant behaviors Discharge Plan Diagnosis Discharge Problem: Atypical chest pain, Hypertension, History of TIA (transient ischemic attack), CAD (coronary artery disease), Hyperlipidemia Discharge Plan Patient Disposition: 09 ADMITTED INPATIENT Condition: Stable Prescriptions: No Action atorvastatin 20 mg tablet 20 mg PO QDAY metoprolol succinate 200 mg tablet extended release 24 hr 200 mg PO QDAY hydrochlorothiazide 25 mg tablet 25 mg PO QDAY losartan 100 mg tablet 100 mg PO QDAY potassium chloride 20 mEq tablet extended release 20 meq PO BID furosemide 40 mg tablet 40 mg PO BID pantoprazole 40 mg tablet,delayed release (DR/EC) 40 mg PO BID gabapentin 100 mg capsule 300 mg PO TID hydrocodone-acetaminophen 5-325 mg tablet 1 tab PO Q6H PRN nitroglycerin 0.4 mg tablet, sublingual 0.4 mg sublingual Q5M PRN Rx Instructions: do not exceed 3 doses per episode clopidogrel 75 mg tablet 75 mg PO QDAY fluticasone propion-salmeterol 500-50 mcg/dose blister with device 1 inh INHALATION PRN PRN Patient Comments: [NO ORIGINAL SIG] azelastine 137 mcg (0.1 %) spray,non-aerosol 137 mcg INTRANASAL PRN PRN Patient Comments: [NO ORIGINAL SIG] fluticasone propionate 50 mcg/actuation spray,suspension 1 spray INTRANASAL DAILY Atrovent HFA 17 mcg/actuation HFA aerosol inhaler 1 inh inhalation PRN PRN Health Concerns: Post Hospitalization: new medications and changes needed to prevent readmission or further decline. Pt educated and given instructions on all concerns. Plan of Treatment: Continue with present treatment and follow up plan. Pt is to keep follow up appointment as instructed and take medications as ordered. Orders to Discharge Patient Discharge Orders: Transfer (Routine); Ordered 09/06/25 Ordered By: Jean Croft Follow ups/Referrals Follow ups/Referrals: NFD,None [Primary Care Provider] - 3 days Instructions Stand Alone Forms: Find Help Web Site, Post Hospital Follow Up Care Print Language: BELGIAN
--- NOTE | 2025-09-06 18:18 | RAD ---
EXAMINATION: CHEST, 1 VIEW HISTORY: Chest Pain; . COMPARISON STUDY: Chest x-ray 02/09/2025 TECHNIQUE: Single frontal view of the chest FINDINGS: Lungs are expanded. Streaky bibasilar opacities. Borderline cardiac silhouette enlargement. Normal pulmonary vascular pattern. Kanika catheter right chest with distal catheter along the SVC/right atrium. Partially imaged fusion hardware cervical spine. IMPRESSION: Bibasilar opacities. Soft tissue density/opacity in the left lateral pulmonary base. THIS IS AN ELECTRONICALLY VERIFIED FINAL REPORT 09/06/2025 6:15 PM - Electronically signed by Maira Early MD
[2025-09-06] MEDS: MAG-OX TAB PO ONE (18:41)
[2025-09-06] MEDS: APRESOLINE INJ 20 MG VIAL IVP ONE (19:37)
[2025-09-06] MEDS ORDERED: TYLENOL 325 MG TAB PO PRN (21:15)
[2025-09-06] MEDS ORDERED: [UNRECOGNIZED DRUG - OTHER] IN PRN (21:15)
[2025-09-06] MEDS ORDERED: [UNRECOGNIZED DRUG - OTHER] IN PRN (21:15)
[2025-09-06] MEDS ORDERED: IPRATROPIUM BROMIDE IN PRN (21:15)
[2025-09-06] MEDS ORDERED: CONSULT PHARMACY - POTASSIUM & MAGNESIUM XX SCH (21:15)
[2025-09-06] MEDS ORDERED: ULTRAM PO PRN (21:15)
--- NOTE | 2025-09-06 21:45 | EKG ---
Test Reason : Chest Pain Blood Pressure : */* mmHG Vent. Rate : 108 BPM Atrial Rate : 108 BPM P-R Int : 130 ms QRS Dur : 112 ms QT Int : 370 ms P-R-T Axes : 71 -17 78 degrees QTc Int : 495 ms Sinus tachycardia Incomplete right bundle branch block Left ventricular hypertrophy with repolarization abnormality ( R in aVL ) Abnormal ECG When compared with ECG of 06-SEP-2025 15:58, premature ventricular complexes are no longer present Confirmed by James Clifton MD ([id number]) on 09/07/2025 1:23:37 PM Referred By: Confirmed By: James Clifton MD
[2025-09-06] MEDS: NEURONTIN CAP 100 MG PO SCH (21:57)
[2025-09-06] MEDS: LASIX PO SCH (21:58)
[2025-09-06] MEDS: NORCO 5/325 MG TAB PO PRN (21:58)
[2025-09-06] MEDS: K-DUR TAB 20 MEQ PO SCH ×2 (21:58→23:34)
[2025-09-06] MEDS: PROTONIX TAB 40 MG PO SCH (21:58)
[2025-09-06] MEDS: MAG-OX TAB PO SCH (23:34)
--- NOTE | 2025-09-07 02:57 | EKG ---
Test Reason : Chest Pain Blood Pressure : */* mmHG Vent. Rate : 101 BPM Atrial Rate : 101 BPM P-R Int : 126 ms QRS Dur : 114 ms QT Int : 374 ms P-R-T Axes : 70 -17 61 degrees QTc Int : 484 ms Sinus tachycardia Incomplete right bundle branch block Minimal voltage criteria for LVH, may be normal variant ( R in aVL ) Abnormal ECG When compared with ECG of 06-SEP-2025 21:31, (Unconfirmed) No significant change was found Confirmed by James Clifton MD ([id number]) on 09/07/2025 1:23:27 PM Referred By: Confirmed By: James Clifton MD
--- NOTE | 2025-09-07 05:07 | RAD ---
PROCEDURE: Chest X-ray 1 View. HISTORY: CHEST PAIN, BASILAR INFILTRATES ; TN, CAD, HTN, CVA, COPD, ASTHMA, GERD, CHF SX: ANGIO/STENTS, [place], HYST, MASTECTOMY, ORTHO, TONSILS . TECHNIQUE: AP view. COMPARISON: 09/06/2025. TECHNICAL QUALITY: Satisfactory. FINDINGS: Normal-sized heart for lordotic AP position. Mediastinum and hilar regions show no masses or lymphadenopathy. Normal central vascularity. No pulmonary consolidation, masses, pleural fluid, or pneumothorax. No acute bony abnormality. IMPRESSION: No evidence of active cardiopulmonary disease. THIS IS AN ELECTRONICALLY VERIFIED FINAL REPORT 09/07/2025 5:03 AM - Electronically signed by Connor Andrea MD
[2025-09-07 05:58] LABS: MEAN PLATELET VOLUME 8.5 fL (7.4-11.0); RED CELL DISTRIBUTION WIDTH 15.6 % (11.6-16.5)
[2025-09-07 06:30] LABS: COR CA(FOR HYPOALB) 9.1 mg/dL (8.5-10.1); COR NA(FOR HYPERGLY) 142 mmol/L (136-145); CREATININE 0.81 mg/dL (0.55-1.02); eGFR NON BLACK RACES > 60 (>60)
[2025-09-07] MEDS ORDERED: ULTANE GAS IN ONE (07:30)
[2025-09-07] MEDS ORDERED: XYLOCAINE 2 % (PLAIN) ONE (07:30)
[2025-09-07] MEDS ORDERED: TOPROL XL PO ONE (08:04)
[2025-09-07] MEDS: COZAAR PO SCH (08:20)
[2025-09-07] MEDS: PLAVIX PO SCH (08:20)
[2025-09-07] MEDS: TOPROL XL PO SCH (08:20)
[2025-09-07] MEDS: LIPITOR TAB 20 MG PO SCH (08:20)
[2025-09-07] MEDS: ASPIRIN PO SCH (08:20)
[2025-09-07] MEDS: HYDROCHLOROTHIAZIDE 25 MG TAB PO SCH (08:20)
--- NOTE | 2025-09-07 08:20 | EKG ---
Test Reason : elevated troponin Blood Pressure : */* mmHG Vent. Rate : 99 BPM Atrial Rate : 99 BPM P-R Int : 130 ms QRS Dur : 108 ms QT Int : 370 ms P-R-T Axes : 7 -8 35 degrees QTc Int : 474 ms Normal sinus rhythm Incomplete right bundle branch block Minimal voltage criteria for LVH, may be normal variant ( R in aVL ) Prolonged QT Abnormal ECG When compared with ECG of 07-SEP-2025 02:53, (Unconfirmed) No significant change was found Confirmed by James Clifton MD ([id number]) on 09/07/2025 1:23:18 PM Referred By: Confirmed By: James Clifton MD
[2025-09-07] MEDS: PULMICORT NEB TX 0.5 MG NEB SCH (08:25)
[2025-09-07] MEDS: NITROSTAT SL PRN (08:28)
[2025-09-07] MEDS ORDERED: PHARMACY CONSULT XX SCH (09:00)
[2025-09-07] MEDS ORDERED: METOPROLOL SUCCINATE 200 MG PO SCH (09:00)
[2025-09-07] MEDS: LOVENOX INJ 40 MG SYR SC SCH (09:04)
[2025-09-07 10:32] LABS: INR 0.98 (0.8-1.3)
[2025-09-07] MEDS: HEPARIN SODIUM INJ 5000 UNITS IVP ONE (10:51)
[2025-09-07] MEDS: HEPARIN SODIUM IN D5W 25,000 UNITS/500 ML BAG ONE (10:52)
[2025-09-07] MEDS: HEPARIN SODIUM IN D5W 25,000 UNITS/500 ML BAG IV PRN (10:52)
[2025-09-07 12:14] VITALS: TEMP 98.1
[2025-09-07] MEDS: NYSTATIN POWDER TOP SCH (13:00)
[2025-09-07] MEDS: BUTT CREAM (COMPOUND) TOP PRN (13:01)
[2025-09-07] MEDS: NEURONTIN CAP 300 MG PO SCH (13:25)
[2025-09-07 14:03] VITALS: BP 120/85; PULSE 69; RESP 20; O2SAT 97
--- NOTE | 2025-09-08 13:17 | DR.SSS ---
SHORT STAY SUMMARY Admission Date Date of Admission: 09/06/25 Discharge Date Discharge Date: 09/07/25 Admission Diagnoses Admission Diagnoses: Chest pain Discharge Diagnoses Discharge Diagnoses: NSTEMI Chief Complaint Chief Complaint: Chest pain History of Present Illness History of Present Illness: Patient presented to the ER from home with constant chest pain and dyspnea on exertion. No swelling, dizziness, loss of conscious ness, nausea, vomiting, reflux, fevers, chills, or diarrhea. Reported to the ER that it had started the day prior but told us that had been going on for about a week and worsened yesterday. ER workup was benign. Admitted overnight for chest pain rule out. Last coronary stent was April 2024 at [facility]. Overnight, fourth troponin elevated over 200 with repeat confirming elevation. Still dyspneic on exertion and with chest tightness/pain. Telemetry had been benign overnight. EKG appeared unchanged from yesterday and prior with ST changes and right bundle branch block. Staff reported no events overnight. She was requesting transfer to [facility]. ROS: 12 point ROS negative except as noted above. PE: Chronically ill-appearing female in no acute distress. Obese. Head NCAT with hearing grossly normal. Heart regular rate and rhythm. Lungs diminished but clear. Belly protuberant but soft with bowel sounds present. Able to sit up in bed without assistance and stand at the bedside without help. Moves all extremities equally well with 1+ nonpitting edema of BLE. Mood and affect are appropriate. Past Medical History Past Medical History: Arthritis, Asthma, CHF, COPD, Coronary Artery Disease, CVA, Dyslipidemia, GERD, Hypertension and IL Additional Medical History: BREAST CANCER Past Surgical History Surgical History: Angioplasty/Stents, Cholecystectomy, Hysterectomy, Mastectomy, Ortho Surgery and Tonsillectomy Allergies Allergies Allergy/AdvReac Type Severity Reaction Status Date / Time Fish Containing Products Allergy Severe ANAPHALEXIS Verified 09/06/25 21:42 REACTION oxaprozin (From Daypro) Allergy Severe Verified 03/20/25 13:59 SEAFOOD Allergy Severe ANAPHALEXIS Verified 09/06/25 21:42 REACTION shellfish derived Allergy Severe ANAPHALEXIS Verified 09/06/25 21:42 REACTION shrimp Allergy Severe ANAPHALEXIS Verified 09/06/25 21:42 REACTION brompheniramine Allergy Verified 03/20/25 13:59 ciprofloxacin Allergy Verified 03/20/25 13:59 clindamycin Allergy Verified 03/20/25 13:59 hydrochlorothiazide Allergy Verified 03/20/25 13:59 hydromorphone Allergy Verified 03/20/25 13:59 iodine Allergy Verified 03/20/25 13:59 meperidine Allergy Verified 03/20/25 13:59 metaxalone Allergy Verified 03/20/25 13:59 morphine Allergy Verified 03/20/25 13:59 moxifloxacin Allergy Verified 03/20/25 13:59 penicillin G Allergy Verified 03/20/25 13:59 phenylpropanolamine Allergy Verified 03/20/25 13:59 ranitidine Allergy Verified 03/20/25 13:59 Medications Home Medications: Fish Containing Products Allergy (Severe, Verified 09/06/25 21:42) ANAPHALEXIS REACTION oxaprozin (From Daypro) Allergy (Severe, Verified 03/20/25 13:59) SEAFOOD Allergy (Severe, Verified 09/06/25 21:42) ANAPHALEXIS REACTION shellfish derived Allergy (Severe, Verified 09/06/25 21:42) ANAPHALEXIS REACTION shrimp Allergy (Severe, Verified 09/06/25 21:42) ANAPHALEXIS REACTION brompheniramine Allergy (Verified 03/20/25 13:59) ciprofloxacin Allergy (Verified 03/20/25 13:59) clindamycin Allergy (Verified 03/20/25 13:59) hydrochlorothiazide Allergy (Verified 03/20/25 13:59) hydromorphone Allergy (Verified 03/20/25 13:59) iodine Allergy (Verified 03/20/25 13:59) meperidine Allergy (Verified 03/20/25 13:59) metaxalone Allergy (Verified 03/20/25 13:59) morphine Allergy (Verified 03/20/25 13:59) moxifloxacin Allergy (Verified 03/20/25 13:59) penicillin G Allergy (Verified 03/20/25 13:59) phenylpropanolamine Allergy (Verified 03/20/25 13:59) ranitidine Allergy (Verified 03/20/25 13:59) CONTINUE taking the following medications azelastine 137 mcg (0.1 %) nasal spray 137 mcg intranasal PRN PRN 09/06/25 [ History] fluticasone 500 mcg-salmeterol 50 mcg/dose blistr powdr for inhalation 1 inh inhalation PRN PRN 10/23/25 [History] fluticasone propionate 50 mcg/actuation nasal spray,suspension 1 spray intra nasal DAILY 09/06/25 [History] ipratropium bromide 17 mcg/actuation HFA aerosol inhaler (Atrovent HFA) 1 inh inhalation PRN PRN 09/06/25 [History] Family History Family Medical History: Diabetes Mellitus, Cancer, IL, Coronary Artery Disease, Heart Failure, Sudden Cardiac and Hypertension Social History Does patient currently use any type of tobacco product: No Have you used tobacco products in the last 12 months: No Type of Tobacco Use: None Does any household member use tobacco: No Alcohol Use: None Drug Use: None Physical Exam Vital Signs: Last Vital Signs Temp 97.1 F L 09/07/25 04:00 Pulse 101 H 09/07/25 04:00 Resp 18 09/07/25 04:00 BP 121/59 09/07/25 04:00 Pulse Ox 95 09/07/25 04:00 O2 Del Method Nasal Cannula 09/06/25 21:00 O2 Flow Rate 2 09/06/25 21:00 FiO2 28 09/06/25 21:00 Labs Labs: Laboratory Last Values WBC 7.2 X10^3/uL (3.6-10.0) 09/07/25 05:28 RBC 4.12 X10^6/uL (3.5-5.4) 09/07/25 05:28 Hgb 12.3 g/dL (12.0-16.0) 09/07/25 05:28 Hct 36.1 % (36.0-47.0) 09/07/25 05:28 MCV 87.4 fL (80.0-100.0) 09/07/25 05:28 MCH 29.9 pg (27.0-34.0) 09/07/25 05:28 MCHC 34.2 g/dL (33.0-35.0) 09/07/25 05:28 RDW 15.6 % (11.6-16.5) 09/07/25 05:28 Plt Count 275 X10^3/uL (150.0-450.0) 09/07/25 05:28 MPV 8.5 fL (7.4-11.0) 09/07/25 05:28 Neut % (Auto) 66.3 % (42.0-75.0) 09/07/25 05:28 Lymph % (Auto) 23.5 % (21.0-51.0) 09/07/25 05:28 Stephenson % (Auto) 7.7 % (0.0-13.0) 09/07/25 05:28 Eos % (Auto) 1.2 % (0.9-2.9) 09/07/25 05:28 Baso % (Auto) 1.3 % (0.2-1.0) H 09/07/25 05:28 Neut # (Auto) 4.8 x10^3/uL (2.2-4.8) 09/07/25 05:28 Lymph # (Auto) 1.7 X10^3/uL (1.3-2.9) 09/07/25 05:28 Stephenson # (Auto) 0.6 x10^3/uL (0.3-0.8) 09/07/25 05:28 Eos # (Auto) 0.1 x10^3/uL (0.0-0.2) 09/07/25 05:28 Baso # (Auto) 0.1 X10^3/uL (0.0-0.1) 09/07/25 05:28 Absolute Nucleated RBC 0.1 /100WBC 09/07/25 05:28 PT 13.1 SECONDS (11.8-14.3) 09/06/25 16:03 INR Target Range - 09/06/25 16:03 INR 0.98 (0.8-1.3) 09/06/25 16:03 APTT 28.2 SECONDS (22.9-36.5) 09/06/25 16:03 PTT Comment - 09/06/25 16:03 Sodium 141 mmol/L (136-145) 09/07/25 05:28 Corrected Sodium 142 mmol/L (136-145) 09/07/25 05:28 Potassium 3.7 mmol/L (3.5-5.1) 09/07/25 05:28 Chloride 103 mmol/L (98-107) 09/07/25 05:28 Carbon Dioxide 30.3 mmol/L (21-32) 09/07/25 05:28 BUN 18 mg/dL (7-18) 09/07/25 05:28 Creatinine 0.81 mg/dL (0.55-1.02) 09/07/25 05:28 Est GFR (MDRD) Af Amer > 60 (>60) 09/07/25 05:28 Est GFR (MDRD) Non-Af > 60 (>60) 09/07/25 05:28 Glucose 149 mg/dL (65-99) H 09/07/25 05:28 Calcium 8.4 mg/dL (8.5-10.1) L 09/07/25 05:28 Corrected Calcium 9.1 mg/dL (8.5-10.1) 09/07/25 05:28 Magnesium 1.7 mg/dL (2.0-2.9) L 09/07/25 05:28 Total Bilirubin 0.70 mg/dL (0.2-1.0) 09/07/25 05:28 AST 25 Units/L (15-37) 09/07/25 05:28 ALT 42 Units/L (12-78) 09/07/25 05:28 Alkaline Phosphatase 128 Units/L (46-116) H 09/07/25 05:28 Creatine Kinase 48 Units/L (26-192) 09/06/25 16:03 Troponin I High Sens 271.0 ng/L (4.0-60.0) H* 09/07/25 05:28 Total Protein 6.5 g/dL (6.4-8.2) 09/07/25 05:28 Albumin 3.1 g/dL (3.4-5.0) L 09/07/25 05:28 Globulin 3.4 g/dL (2.5-4.5) 09/07/25 05:28 Albumin/Globulin Ratio 0.9 Ratio (1.1-2.1) L 09/07/25 05:28 Assessment/Plan (1) NSTEMI (non-ST elevated myocardial infarction): (2) CAD (coronary artery disease): (3) QUINTERO (dyspnea on exertion): (4) Hyperlipidemia: (5) History of coronary angioplasty: (6) Hypertension: (7) Morbid obesity due to excess calories: Hospital Course Hospital Course: After diagnosis of NSTEMI, [facility] was contacted and accepted in transfer. Patient was also placed on heparin drip. Her DAPT and statin were continued. Home BP meds were also continued. Transferred in stable condition with cardiology and hospitalist acceptance to [facility]. Discharge Medications Discharge Medications: Home Medication List azelastine 137 mcg (0.1 %) nasal spray 137 mcg intranasal PRN PRN 09/06/25 [History] fluticasone 500 mcg-salmeterol 50 mcg/dose blistr powdr for inhalation 1 inh inhalation PRN PRN 09/06/25 [History] fluticasone propionate 50 mcg/actuation nasal spray,suspension 1 spray intranasal DAILY 09/06/25 [History] ipratropium bromide 17 mcg/actuation HFA aerosol inhaler (Atrovent HFA) 1 inh inhalation PRN PRN 09/06/25 [History] Prescriptions: Discharge Disposition Discharge Disposition: Transferred to higher level of care. Discharge Plan Discharge Plan Patient Disposition: [facility] Condition: Stable Health Concerns: Post Hospitalization: new medications and changes needed to prevent readmission or further decline. Pt educated and given instructions on all concerns. Plan of Treatment: Continue with present treatment and follow up plan. Pt is to keep follow up appointment as instructed and take medications as ordered. Prescription drug monitoring program results: PDMP reviewed and no concerns identified Prescriptions: No Action atorvastatin 20 mg tablet 20 mg PO QDAY metoprolol succinate 200 mg tablet extended release 24 hr 200 mg PO QDAY hydrochlorothiazide 25 mg tablet 25 mg PO QDAY losartan 100 mg tablet 100 mg PO QDAY potassium chloride 20 mEq tablet extended release 20 meq PO BID furosemide 40 mg tablet 40 mg PO BID pantoprazole 40 mg tablet,delayed release (DR/EC) 40 mg PO BID gabapentin 100 mg capsule 300 mg PO TID hydrocodone-acetaminophen 5-325 mg tablet 1 tab PO Q6H PRN nitroglycerin 0.4 mg tablet, sublingual 0.4 mg sublingual Q5M PRN Rx Instructions: do not exceed 3 doses per episode clopidogrel 75 mg tablet 75 mg PO QDAY fluticasone propion-salmeterol 500-50 mcg/dose blister with device 1 inh INHALATION PRN PRN Patient Comments: [NO ORIGINAL SIG] azelastine 137 mcg (0.1 %) spray,non-aerosol 137 mcg INTRANASAL PRN PRN Patient Comments: [NO ORIGINAL SIG] fluticasone propionate 50 mcg/actuation spray,suspension 1 spray INTRANASAL DAILY Atrovent HFA 17 mcg/actuation HFA aerosol inhaler 1 inh inhalation PRN PRN Orders to Discharge Patient Discharge Orders: Discharge by Transfer to Outside Facility (Routine); Ordered 09/07/25 Ordered By: Gregg Spence Follow ups/Referrals Follow ups/Referrals: [facility],None [Primary Care Provider] - 3 days Instructions Stand Alone Forms: Excuse From Work or School, Find Help Web Site, Post Hospital Follow Up Care Print Language: [place]
== END 2025-09-07 14:05 | disposition short-term general hospital (02) | DRG 281 ==
LOC: MED/SURG 15:43 → ER 15:43 → MED/SURG 20:58
PROVIDERS: ADMIT Family Medicine; ATTEND Family Medicine
DX: Z95.5 Presence of coronary angioplasty implant and graft; M19.90 Unspecified osteoarthritis, unspecified site; Z58.89 Other problems related to physical environment; J44.9 Chronic obstructive pulmonary disease, unspecified; I10 Essential (primary) hypertension; I45.10 Unspecified right bundle-branch block; E66.01 Morbid (severe) obesity due to excess calories; R00.0 Tachycardia, unspecified; R94.31 Abnormal electrocardiogram [ECG] [EKG]; R07.89 Other chest pain; R73.09 Other abnormal glucose; I25.10 Atherosclerotic heart disease of native coronary artery without angina pectoris; R06.09 Other forms of dyspnea; Z86.73 Personal history of transient ischemic attack (TIA), and cerebral infarction without residual deficits; E78.5 Hyperlipidemia, unspecified; E83.42 Hypomagnesemia; I25.2 Old myocardial infarction; I21.4 Non-ST elevation (NSTEMI) myocardial infarction; K21.9 Gastro-esophageal reflux disease without esophagitis; R79.89 Other specified abnormal findings of blood chemistry; Z68.41 Body mass index [BMI] 40.0-44.9, adult